=== PATIENT | male | born 1935 | race Caucasian/White ===

== ENCOUNTER → 2017-11-25 15:49 | Outpatient (CLI) | payer MEDICARE, BC, SELFPAY ==
[2017-11-25 17:20] LABS: CREATININE 1.31 mg/dL (0.70-1.30); Estimated GFR 52.65 (mL/min/1.73m2)
== END ==
PROVIDERS: PCP Nurse Practitioner Family; Visit Provider Nurse Practitioner Family
DX: N18.9 Chronic kidney disease, unspecified (principal)
CPT/HCPCS: 36415; 82565

== ENCOUNTER 2017-11-30 09:01 | Outpatient (RCR) | payer MEDICARE, BC, SELFPAY ==
[2017-11-30] MEDS: Normal Saline Flush 10 ML SYR IVP (09:50)
== END 2017-12-23 ==
LOC: INF 09:01
PROVIDERS: PCP Nurse Practitioner Family; Visit Provider Nurse Practitioner Family
DX: M85.80 Other specified disorders of bone density and structure, unspecified site (principal)
CPT/HCPCS: 96365; J3489

== ENCOUNTER 2018-11-29 01:11 | Outpatient (RCR) | payer MEDICARE, BC, SELFPAY ==
[2018-11-29] MEDS: Normal Saline Flush 10 ML SYR IVP (09:06)
== END 2018-12-23 23:59 | disposition home or self-care (01) ==
LOC: INF 01:11
PROVIDERS: PCP Nurse Practitioner Family; Visit Provider Nurse Practitioner Family
DX: M85.80 Other specified disorders of bone density and structure, unspecified site (principal)
CPT/HCPCS: 96365; J3489

== ENCOUNTER 2019-01-07 11:01 | Inpatient (IN) | payer MEDICARE, BC, SELFPAY ==
[2019-01-07] VITALS (73 sets, daily range): BP systolic 91–131; BP diastolic 43–81; PULSE 81–113; RESP 15–38; TEMP 36.5–37; O2SAT 92–100
--- NOTE | 2019-01-07 11:27 | DI.RAD_ITS ---
SYMPTOM/DIAGNOSIS: ALTERED MENTAL STATUS PA AND LATERAL CHEST: Increased interstitial markings are noted bilaterally raising the possibility of edema. There is asymmetric elevation of the left hemidiaphragm with increased left retrocardiac markings which could represent an infiltrate. The possibility of a very small pleural effusion could not be excluded. The heart is enlarged. The patient is status post CABG. Multiple degenerative changes are noted in the T spine. IMPRESSION: Cardiomegaly, question pulmonary edema. I could not exclude a left lower lobe infiltrate. The possibility of a very small pleural effusion is raised.
--- NOTE | 2019-01-07 11:27 | DI.CT_ITS ---
SYMPTOM/DIAGNOSIS: PERIOD OF ALTERED MENTAL STATUS, ? ACUTE CVA NONCONTRAST HEAD CT: The exam was carried out according to the usual protocol. There is no evidence of an intra/extra-axial hemorrhage. Regions of diminished absorption in the frontoparietal white matter bilaterally would be consistent with small vessel disease. The ventricles are intact. There is no fracture. The visualized sinuses appear unremarkable. There is no evidence of a mastoid effusion. The soft tissues are unremarkable. IMPRESSION: No acute intracranial abnormality is demonstrated.
--- NOTE | 2019-01-07 11:30 | W.ED.GENAD ---
Discharge Plan Disposition Patient Disposition: [facility] INPATIENT Condition: Stable Discharge Details Chief Complaint: Dizzy/Sync Clinical Impression: Near syncope, Elevated troponin, Pneumonia, Pleural effusion Admit Date/Time: 01/07/19 15:57 Admit Provider: Ha Farris Attending Provider: Ha Farris Primary Care Provider: Maureen Aragon ED Provider: Jossy Marsh Discharge Data Discharge Date/Time-TO BE ENTERED AT DEPARTURE: 01/07/19 17:15 Medical Decision Making 1110 -- 83-year-old male with a history of coronary artery disease, CABG, DVT, PE on Coumadin who presents with an unresponsive episode after ambulating prior to arrival. Patient has no acute complaints at this time. Heart rate 100s. Blood pressure 95/60 which states is near his baseline. Afebrile and he appears nontoxic. No focal deficits on exam. EKG notes a rate of 106, sinus, left bundle branch block, no acute change from previous EKG. Differential diagnosis includes seizure, dehydration, electrolyte abnormality, arrhythmia, ACS, UTI, pneumonia. Will place an IV, small bolus IV fluids, screening labs, chest x-ray. 1300 -- Labs and imaging reviewed. Normal white blood cell count. INR 2. Troponin 0.12. BNP 3767. Chest x-ray notes a left lower lobe infiltrate with possible left pleural effusion. In setting of hypotension, elevated lactate, will treat with antibiotics. Suspect the elevation in troponin is likely demand due to CHF versus pneumonia. Plan is for repeat troponin to assess if uptrending or downtrending. Patient still denies any acute complaints. 1510 --repeat troponin still elevated, indeterminate, 0.11. now states that patient has had progressive worsening of shortness of breath and decreased appetite over the past month. She would feel more comfortable patient stayed in the hospital overnight. Will admit patient for serial troponins, gentle fluid hydration, IV antibiotics, and physical therapy evaluation. 1530 --discussed with hospitalist -accepts patient for admission. Medical Records Medical records reviewed: Yes I reviewed the patient's medical records. Imaging Data Radiologic Study: Radiologist's impression: XR Chest, 2 Views EXAM DATE/TIME: 01/07/2019 11:29 AM CLINICAL HISTORY: 83 years old, male; Other: Altered mentation; Prior surgery TECHNIQUE: Imaging protocol: XR of the chest Views: 2 views. COMPARISON: No relevant prior studies available. FINDINGS: Lungs: Increased interstitial markings bilaterally extending to the periphery consistent with edema. Asymmetric elevation left hemidiaphragm with increased left retrocardiac markings consistent with infiltrate. Pleural space: Blunted posterior costophrenic angles may represent a small effusion. Heart/Mediastinum: Cardiomegaly. Bones/joints: Sternotomy wires mediastinal clips in place. Multilevel degenerative changes of the thoracic spine with anterior wedging. IMPRESSION: 1. Cardiomegaly. Pulmonary edema. 2. Left lower lobe infiltrate with possible left pleural effusion. Blunted right posterior costophrenic angle. CT Head Without Contrast EXAM DATE/TIME: 01/07/2019 11:29 AM CLINICAL HISTORY: 83 years old, male; Altered mental status/memory loss TECHNIQUE: Imaging protocol: Computed tomography of the head without contrast. COMPARISON: MR HEAD^ROUTINE WO 15/09/2016 13:04 FINDINGS: Brain: Moderate small vessel ischemic white matter changes of aging. No evidence for acute intraparenchymal hemorrhage. No evidence for acute infarct. Ventricles: Mild ventriculomegaly. Bones/joints: Unremarkable. No acute fracture. Sinuses: Visualized sinuses are unremarkable. No fluid levels. Mastoid air cells: Visualized mastoid air cells are well aerated. Soft tissues: Unremarkable. IMPRESSION: No acute intracranial abnormality. Lab Data Lab results reviewed: Yes I reviewed the patient's lab results. Labs: 01/07/19 13:42 Blood Blood Culture - Pending 01/07/19 13:30 Blood Blood Culture - Pending 01/07/19 13:12 Urine - Reflex from Ua Urine Culture - Pending Laboratory Tests Range/Units 01/07/19 01/07/19 01/07/19 11:30 11:30 11:30 WBC (4.4-10.8) k/cumm 8.48 RBC (4.50-6.00) m/cumm 4.11 L Hgb (13.5-17.5) g/dL 12.7 L Hct (40.0-50.0) % 39.4 L MCV (80-95) fL 95.9 H MCH (27.0-33.0) pg 30.9 MCHC (32.0-36.0) g/dL 32.2 RDW (11.8-14.1) % 15.8 H Plt Count (130-400) x1000/uL 172 MPV (8.0-11.0) fL 9.8 Immature Gran % 0.2 Neutrophils % 79.6 Lymphocytes % 10.8 Monocytes % 8.5 Eosinophils % 0.8 Basophils % 0.1 Absolute Neutrophils (1.2-6.7) k/cumm 6.74 H Absolute Lymphocytes (1.2-3.4) k/cumm 0.92 L Absolute Monocytes (0.11-0.7) k/cumm 0.72 H Absolute Eosinophils (0.0-0.7) k/cumm 0.07 Absolute Basophils (0.0-0.2) k/cumm 0.01 PT (9.3-11.0) sec 20.2 H INR (0.9-1.1) 2.0 H APTT (21.0-31.4) sec 29.2 Sodium (136-145) mmol/L 139 Potassium (3.5-5.1) mmol/L 4.8 Chloride (98-107) mmol/L 104 Carbon Dioxide (21.0-32.0) mmol/L 23.5 Anion Gap (3-11) mmol/L 11.5 H BUN (7-18) mg/dL 22 H Creatinine (0.70-1.30) mg/dL 1.49 H Estimated GFR/1.73 m2 (mL/min/1.73m2) 45.27 Glucose (70-100) mg/dL 157 H Lactate (0.6-1.4) mmol/L Calcium (8.5-10.1) mg/dL 8.3 L Magnesium (1.8-2.4) mg/dL 1.9 Total Bilirubin (0.2-1.0) mg/dL 0.7 AST (15-37) U/L 24 ALT (16-63) U/L 27 Alkaline Phosphatase (46-116) U/L 46 Troponin I (0.00-0.06) ng/mL 0.12 H* NT-Pro-B Natriuret Pep ( - 299) pg/mL Total Protein (6.4-8.2) g/dL 7.0 Albumin (3.4-5.0) g/dL 3.1 L Procalcitonin ng/mL Urine Color (Yellow) Urine Clarity (Clear) Urine pH (5-8) Ur Specific [place] (1.005-1.025) Urine Protein (Negative) mg/dL Urine Ketones (Negative) mg/dL Urine Blood (Negative) Urine Nitrite (Negative) Urine Bilirubin (Negative) Urine Urobilinogen (Up TO 0.2) EU/dL Ur Leukocyte Esterase (Negative) Urine RBC (0-2) Urine WBC (0-5) HPF Ur Epithelial Cells (Negative) HPF Urine Crystals (Negative) HPF Urine Bacteria (Negative) HPF Urine Casts (Negative) LPF Urine Mucus (Negative) Ur Culture Indicated? Urine Glucose (Negative) mg/dL Range/Units 01/07/19 01/07/19 01/07/19 11:30 13:12 13:30 WBC (4.4-10.8) k/cumm RBC (4.50-6.00) m/cumm Hgb (13.5-17.5) g/dL Hct (40.0-50.0) % MCV (80-95) fL MCH (27.0-33.0) pg MCHC (32.0-36.0) g/dL RDW (11.8-14.1) % Plt Count (130-400) x1000/uL MPV (8.0-11.0) fL Immature Gran % Neutrophils % Lymphocytes % Monocytes % Eosinophils % Basophils % Absolute Neutrophils (1.2-6.7) k/cumm Absolute Lymphocytes (1.2-3.4) k/cumm Absolute Monocytes (0.11-0.7) k/cumm Absolute Eosinophils (0.0-0.7) k/cumm Absolute Basophils (0.0-0.2) k/cumm PT (9.3-11.0) sec INR (0.9-1.1) APTT (21.0-31.4) sec Sodium (136-145) mmol/L Potassium (3.5-5.1) mmol/L Chloride (98-107) mmol/L Carbon Dioxide (21.0-32.0) mmol/L Anion Gap (3-11) mmol/L BUN (7-18) mg/dL Creatinine (0.70-1.30) mg/dL Estimated GFR/1.73 m2 (mL/min/1.73m2) Glucose (70-100) mg/dL Lactate (0.6-1.4) mmol/L 2.0 H Calcium (8.5-10.1) mg/dL Magnesium (1.8-2.4) mg/dL Total Bilirubin (0.2-1.0) mg/dL AST (15-37) U/L ALT (16-63) U/L Alkaline Phosphatase (46-116) U/L Troponin I (0.00-0.06) ng/mL NT-Pro-B Natriuret Pep ( - 299) pg/mL 3767 H Total Protein (6.4-8.2) g/dL Albumin (3.4-5.0) g/dL Procalcitonin ng/mL Urine Color (Yellow) Yellow Urine Clarity (Clear) Clear Urine pH (5-8) 6.5 Ur Specific [place] (1.005-1.025) 1.020 Urine Protein (Negative) mg/dL 30 H Urine Ketones (Negative) mg/dL Negative Urine Blood (Negative) Negative Urine Nitrite (Negative) Negative Urine Bilirubin (Negative) Negative Urine Urobilinogen (Up TO 0.2) EU/dL 0.2 Ur Leukocyte Esterase (Negative) Trace H Urine RBC (0-2) Negative Urine WBC (0-5) HPF 5-10 Ur Epithelial Cells (Negative) HPF Negative Urine Crystals (Negative) HPF Negative Urine Bacteria (Negative) HPF Rare Urine Casts (Negative) LPF Negative Urine Mucus (Negative) Negative Ur Culture Indicated? Yes Urine Glucose (Negative) mg/dL 100 Range/Units 01/07/19 01/07/19 14:40 14:40 WBC (4.4-10.8) k/cumm RBC (4.50-6.00) m/cumm Hgb (13.5-17.5) g/dL Hct (40.0-50.0) % MCV (80-95) fL MCH (27.0-33.0) pg MCHC (32.0-36.0) g/dL RDW (11.8-14.1) % Plt Count (130-400) x1000/uL MPV (8.0-11.0) fL Immature Gran % Neutrophils % Lymphocytes % Monocytes % Eosinophils % Basophils % Absolute Neutrophils (1.2-6.7) k/cumm Absolute Lymphocytes (1.2-3.4) k/cumm Absolute Monocytes (0.11-0.7) k/cumm Absolute Eosinophils (0.0-0.7) k/cumm Absolute Basophils (0.0-0.2) k/cumm PT (9.3-11.0) sec INR (0.9-1.1) APTT (21.0-31.4) sec Sodium (136-145) mmol/L Potassium (3.5-5.1) mmol/L Chloride (98-107) mmol/L Carbon Dioxide (21.0-32.0) mmol/L Anion Gap (3-11) mmol/L BUN (7-18) mg/dL Creatinine (0.70-1.30) mg/dL Estimated GFR/1.73 m2 (mL/min/1.73m2) Glucose (70-100) mg/dL Lactate (0.6-1.4) mmol/L Calcium (8.5-10.1) mg/dL Magnesium (1.8-2.4) mg/dL Total Bilirubin (0.2-1.0) mg/dL AST (15-37) U/L ALT (16-63) U/L Alkaline Phosphatase (46-116) U/L Troponin I (0.00-0.06) ng/mL 0.11 H* NT-Pro-B Natriuret Pep ( - 299) pg/mL Total Protein (6.4-8.2) g/dL Albumin (3.4-5.0) g/dL Procalcitonin ng/mL < 0.1 Urine Color (Yellow) Urine Clarity (Clear) Urine pH (5-8) Ur Specific [place] (1.005-1.025) Urine Protein (Negative) mg/dL Urine Ketones (Negative) mg/dL Urine Blood (Negative) Urine Nitrite (Negative) Urine Bilirubin (Negative) Urine Urobilinogen (Up TO 0.2) EU/dL Ur Leukocyte Esterase (Negative) Urine RBC (0-2) Urine WBC (0-5) HPF Ur Epithelial Cells (Negative) HPF Urine Crystals (Negative) HPF Urine Bacteria (Negative) HPF Urine Casts (Negative) LPF Urine Mucus (Negative) Ur Culture Indicated? Urine Glucose (Negative) mg/dL ECG Data Attestation: I personally reviewed and interpreted this ECG (s) as follows: Interpretation: Rate of 106, sinus, left bundle branch block, first-degree AV block, IN 224, QTc 531. No acute change from previous EKG. HPI General Mode of arrival: EMS. Date/Time Provider Initiated Documentation: 01/07/19 11:10. Limitations to Documentation: no limitations. Information obtained by: patient. HPI Narrative: Patient is an 83-year-old male with a history of coronary artery disease and CABG, DVT, PE on Coumadin, COPD chronically on home O2 for the past year who presents with an episode of decreased responsiveness prior to arrival. states that patient ambulated to the car from a store and sat down. When she came to the putaway driver side and looked in him, he appeared dazed and was staring out the window. She states he appeared pale but he was breathing. She states this lasted approximately 5 to 10 minutes and then he became irritable and then more back to his baseline. She states that time he complained of dizziness. Patient does not recall this episode. states patient has had similar episodes in the past but has not been evaluated by a medical provider for this. She does state that he has been evaluated for seizures in the past with [facility] and has had a normal EEG. Patient denies any symptoms at this time. He denies fever, chest pain, shortness of breath, cough, vomiting, diarrhea, abdominal pain, headache, dizziness, recent illness, recent travel, leg pain or swelling or recent hospital admission. states patient was on antibiotics last week for prior to a dental procedure. Patient denies any recent medication changes. Related Data Home Medications Medication Instructions Recorded Confirmed Citracal + D Caplet 1 ea PO DAILY 08/02/12 01/07/19 aspirin 81 mg PO DAILY tab 08/02/12 01/07/19 cholecalciferol (vitamin D3) 1,000 iu PO DAILY 08/02/12 01/07/19 cyanocobalamin (vitamin B-12) 500 mcg PO DAILY 08/02/12 01/07/19 [Vitamin B-12] multivitamin [Daily Vitamin] 1 ea PO DAILY 08/02/12 01/07/19 Oxygen as directed 10/28/17 10/25/18 isosorbide mononitrate 120 mg 120 mg PO DAILY #90 tab-cap 09/25/18 01/07/19 tablet,extended release 24 hr atorvastatin 40 mg tablet 40 mg PO HS #90 tab 10/11/18 01/07/19 metoprolol succinate 25 mg 25 mg PO DAILY #90 tab-cap 10/11/18 01/07/19 tablet,extended release 24 hr oxybutynin chloride 5 mg tablet 5 mg PO BID #180 tab-cap 10/11/18 01/07/19 ramipril 10 mg capsule 10 mg PO DAILY #90 tab-cap 10/11/18 01/07/19 ranolazine [Ranexa] 500 mg PO QAM 01/07/19 01/07/19 ranolazine [Ranexa] 500 mg PO QHS 01/07/19 01/07/19 warfarin See Rx Instructions .ROUTE .COMPLEX 01/07/19 01/07/19 warfarin See Rx Instructions .ROUTE .COMPLEX 01/07/19 01/07/19 Previous Rx's Medication Instructions Recorded isosorbide mononitrate 120 mg 120 mg PO DAILY #90 tab-cap 09/25/18 tablet,extended release 24 hr atorvastatin 40 mg tablet 40 mg PO HS #90 tab 10/11/18 metoprolol succinate 25 mg 25 mg PO DAILY #90 tab-cap 10/11/18 tablet,extended release 24 hr oxybutynin chloride 5 mg tablet 5 mg PO BID #180 tab-cap 10/11/18 ramipril 10 mg capsule 10 mg PO DAILY #90 tab-cap 10/11/18 Allergies Allergy/AdvReac Type Severity Reaction Status Date / Time No Known Allergies Allergy Verified 01/07/19 11:10 General Stated Complaint: Dizzy/Sync KRISSY: 2 Review of Systems Review of Systems ROS Unobtainable: All systems reviewed & are unremarkable except as noted in HPI and below Constitutional Constitutional: Reports as per HPI, Denies chills and Denies fever(s) Eyes Eyes: Denies blurry vision ENT Ears, Nose, Mouth, and Throat: Denies dizziness, Denies sore throat and Denies throat swelling Cardiovascular Cardiovascular: Denies chest pain and Denies dyspnea Respiratory Respiratory: Denies cough and Denies dyspnea Gastrointestinal Gastrointestinal: Denies abdominal pain, Denies diarrhea and Denies vomiting Genitourinary Genitourinary: Denies hematuria and Denies dysuria Musculoskeletal Musculoskeletal: Denies back pain and Denies numbness Integumentary/Breasts Skin/Breast: Denies lesions and Denies rash Neurologic Neurologic: Denies dizziness, Denies focal weakness and Denies numbness Allergic/Immunologic Allergic/Immunologic: Denies throat swelling [facility] Medical History Angina pectoris (Chronic 08/06/13) Anticoagulant long-term use (Chronic 09/27/12) indication: recurrent DVT/PE ASCVD (arteriosclerotic cardiovascular disease) (Chronic) inf/lat [place], CABGx2 1997; 09/2011 ACS, cath, 3 vessel disease: medical Rx; another stent 2018 Deep venous thrombosis (Inactive 12/01/12) DVT post ERAN; recurent post cath 10/2011 IFG (impaired fasting glucose) (Chronic) Impaired fasting glucose (Chronic 08/20/11) Osteoarthritis of hip (Chronic 12/01/12) markos ERAN; hx sacral fx Osteopenia determined by x-ray (Chronic 11/03/17) left forearm T score -1.9 11/01/17 Other and unspecified hyperlipidemia (Chronic 09/27/12) Other pulmonary embolism and infarction (Inactive 11/17/11) with DVT, post cardiac cath, plan 6-12mo anticoagulation Recurrent DVT/PE; 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 Requesting bone scan. Surgical History Trigger Finger release (Resolved 10/10/15) RIGHT MIDDLE FINGER/DR. COOMBS Social History Smoking/Tobacco Use Status: Former Tobacco Use Alcohol Intake: former Drug use: Never Substance use type: does not use Household members: spouse Communication Needs: None What is your relationship status?: Panel score (0-1 are the most socially isolated patients): 1 Do you feel safe at home: Yes Do you feel safe in your relationship?: Yes Exam Const General: cooperative and healthy appearing Orientation: alert and awake HENMT Head: normal to inspection Ears: hearing grossly normal bilaterally, external ears normal and TM's normal bilaterally General nose exam: external nose normal Face and sinus: normal facial exam Mouth: mucous membranes dry Teeth and gingiva: dentition normal Throat: posterior oropharynx normal Eyes General: appearance normal, both eyes and all related structures Eyelids: eyelids normal Pupils: PERRL EOM: EOM intact bilaterally Neck Neck: normal visual inspection Lymphatic: no lymphadenopathy noted Chest Chest: normal inspection of the chest Resp Effort & Inspection: normal respiratory effort and able to speak in complete sentences Auscultation: crackles on the left at the base Cardio Rate: regular rate Rhythm: regular rhythm GI Inspection: normal to inspection Palpation: soft, not firm, no guarding, no hepatosplenomegaly, no masses and nontender Auscultation: normal bowel sounds Back/Spine/Pelvis Thoracic/Lumbar Spine: thoracic and lumbar spine normal to inspection Skin General skin exam: no rashes or lesions noted Neuro General: alert and awake Cranial Nerves: CN's II-XI intact bilaterally Cognition: normal cognition Speech: speech normal Gait: normal gait Motor: muscle tone normal throughout and strength 5/5 throughout Sensory Exam: no sensory deficits noted Extrem General: normal to inspection, full ROM, normal capillary refill and no edema Psych Appearance: grossly normal Mental Status: mental status grossly normal Speech and Movement: speech and movement normal Affect: normal affect Thought Process: normal Course Vital Signs Vital signs: Vital Signs Temperature 97.7 F 01/07/19 11:04 Pulse 108 H 01/07/19 11:04 Respiratory Rate 01/07/19 11:04 Blood Pressure 95/60 L 01/07/19 11:04 Pulse Oximetry 93 L 01/07/19 11:04 Temperature 97.7 F 01/07/19 11:04 Temperature Source Skin 01/07/19 11:04 Pulse 108 H 01/07/19 11:04 Respiratory Rate 20 01/07/19 11:04 Blood Pressure 95/60 L 01/07/19 11:04 Blood Pressure Position Sitting 01/07/19 11:04 Pulse Oximetry 93 L 01/07/19 11:04 Oxygen Delivery Method Nasal Cannula 01/07/19 11:04 Oxygen Flow Rate 2 01/07/19 11:04 Pain Level 0 01/07/19 11:04
[2019-01-07 11:38] LABS: Abs Immature Grans 0.02 k/cumm (0.0-0.09); Absolute Basophil Count 0.01 k/cumm (0.0-0.2); Absolute Eosinophil Count 0.07 k/cumm (0.0-0.7); Absolute Lymphocyte Count 0.92 k/cumm (1.2-3.4); Absolute Monocyte Count 0.72 k/cumm (0.11-0.7); Absolute Neutrophil Count 6.74 k/cumm (1.2-6.7); Basophils % 0.1; Eosinophils % 0.8; HCT 39.4 % (40.0-50.0); HGB 12.7 g/dL (13.5-17.5); Immature Grans % 0.2; Lymphocytes % 10.8; Mean Corp. HGB Concentration 32.2 g/dL (32.0-36.0); Mean Corpuscular Hemoglobin 30.9 pg (27.0-33.0); Mean Corpuscular Volume 95.9 fL (80-95); Mean Platelet Volume 9.8 fL (8.0-11.0); Monocytes % 8.5; Neutrophils % 79.6; Platelet Count 172 x1000/uL (130-400); RBC 4.11 m/cumm (4.50-6.00); RBC Distribution Width 15.8 % (11.8-14.1); White Blood Cell Count 8.48 k/cumm (4.4-10.8)
[2019-01-07 11:50] LABS: PTT Activated 29.2 sec (21.0-31.4); Prothrombin Time 20.2 sec (9.3-11.0)
[2019-01-07 11:52] LABS: ALT 27 U/L (16-63); AST 24 U/L (15-37); Albumin 3.1 g/dL (3.4-5.0); Alkaline Phosphatase 46 U/L (46-116); Anion Gap 11.5 mmol/L (3-11); BUN 22 mg/dL (7-18); Bilirubin, Total 0.7 mg/dL (0.2-1.0); CO2 23.5 mmol/L (21.0-32.0); CREATININE 1.49 mg/dL (0.70-1.30); Calcium 8.3 mg/dL (8.5-10.1); Chloride 104 mmol/L (98-107); Estimated GFR 45.27 (mL/min/1.73m2); Glucose 157 mg/dL (70-100); Magnesium 1.9 mg/dL (1.8-2.4); Potassium 4.8 mmol/L (3.5-5.1); Sodium 139 mmol/L (136-145)
[2019-01-07] MEDS: Normal Saline 250 ML IV (11:57)
[2019-01-07 12:00] LABS: Troponin I 0.12 ng/mL (0.00-0.06)
[2019-01-07 12:25] LABS: NT-proBNP 3767 pg/mL
--- NOTE | 2019-01-07 12:47 | DI.VRAD_ITS ---
EXAM: CT Head Without Contrast EXAM DATE/TIME: 01/07/2019 11:29 AM CLINICAL HISTORY: 83 years old, male; Altered mental status/memory loss TECHNIQUE: Imaging protocol: Computed tomography of the head without contrast. COMPARISON: MR HEAD^ROUTINE WO 15/09/2016 13:04 FINDINGS: Brain: Moderate small vessel ischemic white matter changes of aging. No evidence for acute intraparenchymal hemorrhage. No evidence for acute infarct. Ventricles: Mild ventriculomegaly. Bones/joints: Unremarkable. No acute fracture. Sinuses: Visualized sinuses are unremarkable. No fluid levels. Mastoid air cells: Visualized mastoid air cells are well aerated. Soft tissues: Unremarkable. IMPRESSION: No acute intracranial abnormality. Dictated and Authenticated by: Ariadna West MD. Ordering:NOLBERTO Fenton MD
--- NOTE | 2019-01-07 12:50 | DI.VRAD_ITS ---
EXAM: XR Chest, 2 Views EXAM DATE/TIME: 01/07/2019 11:29 AM CLINICAL HISTORY: 83 years old, male; Other: Altered mentation; Prior surgery TECHNIQUE: Imaging protocol: XR of the chest Views: 2 views. COMPARISON: No relevant prior studies available. FINDINGS: Lungs: Increased interstitial markings bilaterally extending to the periphery consistent with edema. Asymmetric elevation left hemidiaphragm with increased left retrocardiac markings consistent with infiltrate. Pleural space: Blunted posterior costophrenic angles may represent a small effusion. Heart/Mediastinum: Cardiomegaly. Bones/joints: Sternotomy wires mediastinal clips in place. Multilevel degenerative changes of the thoracic spine with anterior wedging. IMPRESSION: 1. Cardiomegaly. Pulmonary edema. 2. Left lower lobe infiltrate with possible left pleural effusion. Blunted right posterior costophrenic angle. Dictated and Authenticated by: Ariadna West MD. Ordering:NOLBERTO Fenton MD
[2019-01-07 13:17] LABS: Bilirubin Negative (Negative); Blood Negative (Negative); Clarity Clear (Clear); Glucose 100 mg/dL (Negative); Ketones Negative (Negative); Leukocyte Esterase Trace (Negative); Nitrite Negative (Negative); Urobilinogen 0.2 EU/dL (Up TO 0.2); pH 6.5 (5-8)
[2019-01-07 13:25] LABS: Bacteria Rare HPF (Negative); C & S Indicated? Yes; Casts Negative LPF (Negative); Crystals Negative HPF (Negative); Epithelial Cells Negative HPF (Negative); Mucus Negative (Negative); RBC Negative (0-2)
[2019-01-07 15:25] LABS: Troponin I 0.11 ng/mL (0.00-0.06)
--- NOTE | 2019-01-07 16:44 | HPE_ITS ---
Date of service: 01/07/19 Time of Service: 16:45 Assessment and Plan Assessment and plan (1) Neurological abnormality: Start date: 01/07/19 Start time: 17:18 Status: Acute Assessment and plan: Question of TIA vs Siezure. Episode of unresponsiveness while starting into space for approx 5 mins. Second episode in 3 years. Awake study in 2017 by Sarah negative for seizure activity. CT of head normal. MRI ordered. Neurology consulted. Echo ordered. Follow up with am labs. (2) CAP (community acquired pneumonia): Start date: 01/07/19 Start time: 17:20 Status: Acute Assessment and plan: Presents for neurological complaint, however CXR obtained revealed. Cardiomegaly. Pulmonary edema. Left lower lobe infiltrate with possible left pleural effusion. Blunted right posterior costophrenic angle. Started on Doxy and Rocephin. Endorses cough x couple weeks with sputum production in am. Sputum culture ordered. Blood cultures pending. Procalcitonin ordered. lactate in ED 2.0, repeat in am. Albuterol prn. oxygen dependent on 3 L at HS and 2 L during day for severe dyspnea found by PFT. Continue to monitor (3) Deep venous thrombosis: Start date: 01/07/19 Start time: 17:23 Status: Inactive Assessment and plan: Hx of DVT and PE. CAD with CABG. On chronic coumadin. (4) Anticoagulant long-term use: Start date: 01/07/19 Start time: 17:24 Status: Chronic Assessment and plan: Takes coumadin daily. (5) HTN (hypertension): Start date: 01/07/19 Start time: 17:24 Status: Chronic Assessment and plan: BP soft today. Will order home HTN meds with par ameters to hold for soft bp. (6) Hyperlipidemia: Start date: 01/07/19 Start time: 17:25 Status: Acute Assessment and plan: Continue Atorvastatin (7) Oxygen dependent: Start date: 01/07/19 Start time: 17:25 Status: Acute Assessment and plan: See above. (8) Chronic kidney disease: Start date: 01/07/19 Start time: 17:25 Status: Acute Assessment and plan: Creatinine elevated, appears to be chronic in nature. MRI with out contrast ordered and Bun /Creatinine will be monitored. (9) Edema: Start date: 01/07/19 Start time: 17:26 Status: Acute Assessment and plan: RLE is 1-2 + pitting edema. Per this is normal assessment for patient since 5-6 years ago post surgery on hip. Findings discussed with Dr. Farris and he is in agreement with plan. History of Present Illness History of Present Illness Chief Complaint: CAP, Siezure vs TIA Narrative: 83 yo male with PMH of CAD with CABG, PE and DVT on coumadin, CKD, HTN, Hyperlipidemia and oxygen dependent. Presents to emergency department today with what describes a possible seizure vs TIA. Patient was sitting in the car became flushed, pale and started staring straight head with no response to as she was talking to him. This episode lasted approx 5 mins when patient responded with confusion for a couple of mins. An event similar to this occurred three years ago while patient was driving. He was worked up at [facility] 2016. Awake EEG was done and per neurology note no seizure activity took place. He is being admitted to /[facility] for observation. In the emergency department CT obtained with no acute abnormality and CXR revealed Cardiomegaly, Pulmonary edema, LLL infiltrate with possible Left pleural effusion. Mr. Villa has CHF oxygen dependent on 3 L at night and 2 L during the day. Coumadin daily. Question of CHF exacerbation BNP 3757, he does not have crackles he does not have any signs of volume overload though he did receive a bolus in the ED. Repeat BNP in am. Lactate elevated at 2.0, doxy and Rocephin started on patient, blood cultures ordered, sputum culture ordered. Repeat lactate in am. Procalcitonin pending. Mucinex for sputum, and albuterol. I do not see a need for steroids at this time, he is diminished without wheezing or rhonchi. In the event of possible seizure vs TIA neurology consulted. Repeat echo as we do not have a way to review records as this was done in [place]. MRI without contrast for tomorrow. BMP, CBC, INR, Mag for tomorrow. He denies CP, SOB, N/V/D. Review of Systems Review of Systems ROS Unobtainable: All systems reviewed & are unremarkable except as noted in HPI and below Cardiovascular Cardiovascular: Reports as per HPI Respiratory Respiratory: Reports as per HPI [facility] Medical History Angina pectoris (Chronic 08/06/13) Anticoagulant long-term use (Chronic 09/27/12) indication: recurrent DVT/PE ASCVD (arteriosclerotic cardiovascular disease) (Chronic) inf/lat [place], CABGx2 1997; 09/2011 ACS, cath, 3 vessel disease: medical Rx; another stent 2018 Deep venous thrombosis (Inactive 12/01/12) DVT post ERAN; recurent post cath 10/2011 IFG (impaired fasting glucose) (Chronic) Impaired fasting glucose (Chronic 08/20/11) Osteoarthritis of hip (Chronic 12/01/12) markos ERAN; hx sacral fx Osteopenia determined by x-ray (Chronic 11/03/17) left forearm T score -1.9 11/01/17 Other and unspecified hyperlipidemia (Chronic 09/27/12) Other pulmonary embolism and infarction (Inactive 11/17/11) with DVT, post cardiac cath, plan 6-12mo anticoagulation Recurrent DVT/PE; 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 Requesting bone scan. Surgical History S/P CABG (coronary artery bypass graft) (Acute) S/P lumbar spine operation (Acute) laser in [place] in 2012 Status post total hip replacement, right (Acute) with revision in 2012 Trigger Finger release (Resolved 10/10/15) RIGHT MIDDLE FINGER/DR. COOMBS Social History Smoking/Tobacco Use Status: Former Tobacco Use Alcohol Intake: former Drug use: Never Substance use type: does not use Household members: spouse Communication Needs: None What is your relationship status?: Panel score (0-1 are the most socially isolated patients): 1 Do you feel safe at home: Yes Do you feel safe in your relationship?: Yes Meds Home Medications and Allergies Home Medications Medication Instructions Recorded Confirmed Type Citracal + D Caplet 1 ea PO DAILY 08/02/12 01/07/19 History aspirin 81 mg PO DAILY tab 08/02/12 01/07/19 History cholecalciferol (vitamin D3) 1,000 iu PO DAILY 08/02/12 01/07/19 History cyanocobalamin (vitamin B-12) 500 mcg PO DAILY 08/02/12 01/07/19 History [Vitamin B-12] multivitamin [Daily Vitamin] 1 ea PO DAILY 08/02/12 01/07/19 History Walker 1 u MISCELLANEOUS DAILY #1 unit 09/08/16 10/25/18 Clinic Oxygen as directed 10/28/17 10/25/18 History isosorbide mononitrate 120 mg 120 mg PO DAILY #90 tab-cap 09/25/18 01/07/19 Rx tablet,extended release 24 hr atorvastatin 40 mg tablet 40 mg PO HS #90 tab 10/11/18 01/07/19 Rx metoprolol succinate 25 mg 25 mg PO DAILY #90 tab-cap 10/11/18 01/07/19 Rx tablet,extended release 24 hr oxybutynin chloride 5 mg tablet 5 mg PO BID #180 tab-cap 10/11/18 01/07/19 Rx ramipril 10 mg capsule 10 mg PO DAILY #90 tab-cap 10/11/18 01/07/19 Rx ranolazine [Ranexa] 500 mg PO QAM 01/07/19 01/07/19 History ranolazine [Ranexa] 500 mg PO QHS 01/07/19 01/07/19 History warfarin See Rx Instructions .ROUTE .COMPLEX 01/07/19 01/07/19 History warfarin See Rx Instructions .ROUTE .COMPLEX 01/07/19 01/07/19 History Allergies Allergy/AdvReac Type Severity Reaction Status Date / Time No Known Allergies Allergy Verified 01/07/19 11:10 Exam Const General: cooperative, comfortable and no acute distress Orientation: alert, awake and oriented x3 HENMT Head: normal to inspection Face and sinus: normal facial exam Eyes General: appearance normal, both eyes and all related structures Pupils: PERRL Neck Neck: normal visual inspection Lymphatic: no lymphadenopathy noted and no lymphedema noted Chest Chest: normal inspection of the chest Resp Effort & Inspection: able to speak in complete sentences, abnormal respiratory pattern, cough and tachypneic Auscultation: diminished lung sounds Other: oxygen dependent Cardio Jugular venous pressure: no JVD Palpation: normal PMI Rate: regular rate Rhythm: regular rhythm Heart Sounds: S1 normal and S2 normal GI Inspection: normal to inspection Palpation: soft and no hepatosplenomegaly Auscultation: normal bowel sounds Back/Spine/Pelvis Back: no CVA tenderness Skin General skin exam: no rashes or lesions noted Neuro General: alert, awake and oriented x3 Extrem General: normal to inspection Right upper extremity: normal to inspection Left upper extremity: normal to inspection Right lower extremity: edema (1-2 + edema) Psych Appearance: grossly normal Affect: normal affect Attitude: cooperative Results Labs Result diagrams: 01/09/19 06:15 01/09/19 06:15 Labs: Laboratory Results - last 24 hr 01/07/19 01/07/19 01/07/19 11:30 11:30 11:30 WBC 8.48 RBC 4.11 L Hgb 12.7 L Hct 39.4 L MCV 95.9 H MCH 30.9 MCHC 32.2 RDW 15.8 H Plt Count 172 MPV 9.8 Immature Gran % 0.2 Neutrophils % 79.6 Lymphocytes % 10.8 Monocytes % 8.5 Eosinophils % 0.8 Basophils % 0.1 Absolute Neutrophils 6.74 H Absolute Lymphocytes 0.92 L Absolute Monocytes 0.72 H Absolute Eosinophils 0.07 Absolute Basophils 0.01 PT 20.2 H INR 2.0 H APTT 29.2 Sodium 139 Potassium 4.8 Chloride 104 Carbon Dioxide 23.5 Anion Gap 11.5 H BUN 22 H Creatinine 1.49 H Estimated GFR/1.73 m2 45.27 Glucose 157 H Lactate Calcium 8.3 L Magnesium 1.9 Total Bilirubin 0.7 AST 24 ALT 27 Alkaline Phosphatase 46 Troponin I 0.12 H* NT-Pro-B Natriuret Pep Total Protein 7.0 Albumin 3.1 L Urine Color Urine Clarity Urine pH Ur Specific [place] Urine Protein Urine Ketones Urine Blood Urine Nitrite Urine Bilirubin Urine Urobilinogen Ur Leukocyte Esterase Urine RBC Urine WBC Ur Epithelial Cells Urine Crystals Urine Bacteria Urine Casts Urine Mucus Ur Culture Indicated? Urine Glucose 01/07/19 01/07/19 01/07/19 11:30 13:12 13:30 WBC RBC Hgb Hct MCV MCH MCHC RDW Plt Count MPV Immature Gran % Neutrophils % Lymphocytes % Monocytes % Eosinophils % Basophils % Absolute Neutrophils Absolute Lymphocytes Absolute Monocytes Absolute Eosinophils Absolute Basophils PT INR APTT Sodium Potassium Chloride Carbon Dioxide Anion Gap BUN Creatinine Estimated GFR/1.73 m2 Glucose Lactate 2.0 H Calcium Magnesium Total Bilirubin AST ALT Alkaline Phosphatase Troponin I NT-Pro-B Natriuret Pep 3767 H Total Protein Albumin Urine Color Yellow Urine Clarity Clear Urine pH 6.5 Ur Specific [place] 1.020 Urine Protein 30 H Urine Ketones Negative Urine Blood Negative Urine Nitrite Negative Urine Bilirubin Negative Urine Urobilinogen 0.2 Ur Leukocyte Esterase Trace H Urine RBC Negative Urine WBC 5-10 Ur Epithelial Cells Negative Urine Crystals Negative Urine Bacteria Rare Urine Casts Negative Urine Mucus Negative Ur Culture Indicated? Yes Urine Glucose 100 01/07/19 14:40 WBC RBC Hgb Hct MCV MCH MCHC RDW Plt Count MPV Immature Gran % Neutrophils % Lymphocytes % Monocytes % Eosinophils % Basophils % Absolute Neutrophils Absolute Lymphocytes Absolute Monocytes Absolute Eosinophils Absolute Basophils PT INR APTT Sodium Potassium Chloride Carbon Dioxide Anion Gap BUN Creatinine Estimated GFR/1.73 m2 Glucose Lactate Calcium Magnesium Total Bilirubin AST ALT Alkaline Phosphatase Troponin I 0.11 H* NT-Pro-B Natriuret Pep Total Protein Albumin Urine Color Urine Clarity Urine pH Ur Specific [place] Urine Protein Urine Ketones Urine Blood Urine Nitrite Urine Bilirubin Urine Urobilinogen Ur Leukocyte Esterase Urine RBC Urine WBC Ur Epithelial Cells Urine Crystals Urine Bacteria Urine Casts Urine Mucus Ur Culture Indicated? Urine Glucose Last Vital Signs Temp 36.5 C 01/07/19 11:04 Pulse 96 H 01/07/19 14:01 Resp 21 01/07/19 14:10 BP 103/66 01/07/19 14:01 Pulse Ox 96 01/07/19 14:10
[2019-01-07 17:20] LABS: Prothrombin Time 20.6 sec (9.3-11.0)
[2019-01-07 17:38] LABS: Procalcitonin < 0.1 ng/mL
[2019-01-07] MEDS: cefTRIAXone 1 GM/50 ML BAG IVPB (17:59)
--- NOTE | 2019-01-07 18:19 | NUR.NOTE ---
Nursing Note: Pt to [place] floor at 1720 via stretcher from ER. Able to stand and pivot with assistance from stretcher to bed. Pt reports use of walker at home; [facility] walker in room. VSS, 93% on 2L [place]. Telemetry placed. Pt oriented to [place] floor, call schwartz, bed, etc. Call schwartz within reach. RN will continue to monitor.
[2019-01-07] MEDS: DOXYCYCLINE 100 MG in Normal Saline 100 ML IVPB (19:40)
[2019-01-07] MEDS: Oxybutynin 5 MG TAB PO (19:40)
[2019-01-07] MEDS: guaiFENesin 600 MG TABCR PO (19:41)
[2019-01-07] MEDS: Normal Saline Flush 10 ML SYR IVP (19:41)
[2019-01-07] MEDS: Atorvastatin 40 MG TAB PO (21:06)
[2019-01-07 22:00] LABS: Troponin I 0.15 ng/mL (0.00-0.06)
[2019-01-08] VITALS (11 sets, daily range): BP systolic 103–142; BP diastolic 63–82; PULSE 79–86; RESP 18–20; TEMP 36.3–37.4; O2SAT 90–97
[2019-01-08 06:58] LABS: Lactate 1.2 mmol/L (0.6-1.4)
[2019-01-08 07:01] LABS: Abs Immature Grans 0.02 k/cumm (0.0-0.09); Absolute Basophil Count 0.01 k/cumm (0.0-0.2); Absolute Eosinophil Count 0.09 k/cumm (0.0-0.7); Absolute Monocyte Count 0.89 k/cumm (0.11-0.7); Absolute Neutrophil Count 8.05 k/cumm (1.2-6.7); Basophils % 0.1; Eosinophils % 0.9; HCT 40.2 % (40.0-50.0); HGB 13.2 g/dL (13.5-17.5); Immature Grans % 0.2; Mean Corp. HGB Concentration 32.8 g/dL (32.0-36.0); Mean Corpuscular Volume 94.4 fL (80-95); Mean Platelet Volume 9.7 fL (8.0-11.0); Monocytes % 8.9; Neutrophils % 80.9; Platelet Count 170 x1000/uL (130-400); RBC 4.26 m/cumm (4.50-6.00); RBC Distribution Width 15.7 % (11.8-14.1); White Blood Cell Count 9.96 k/cumm (4.4-10.8)
[2019-01-08 07:11] LABS: INR 2.1 (0.9-1.1); Prothrombin Time 20.9 sec (9.3-11.0)
[2019-01-08 07:37] LABS: Anion Gap 9.5 mmol/L (3-11); BUN 21 mg/dL (7-18); CO2 22.5 mmol/L (21.0-32.0); CREATININE 1.44 mg/dL (0.70-1.30); Calcium 8.2 mg/dL (8.5-10.1); Chloride 107 mmol/L (98-107); Estimated GFR 47.08 (mL/min/1.73m2); Glucose 106 mg/dL (70-100); Magnesium 1.8 mg/dL (1.8-2.4); NT-proBNP 6600 pg/mL; Potassium 5.2 mmol/L (3.5-5.1); Sodium 139 mmol/L (136-145)
[2019-01-08] MEDS: Omeprazole 20 MG CAPCR PO (07:38)
[2019-01-08] MEDS: Normal Saline Flush 10 ML SYR IVP ×2 (07:38→16:02)
[2019-01-08 07:41] LABS: Troponin I 0.11 ng/mL (0.00-0.06)
--- NOTE | 2019-01-08 08:04 | NUR.NOTE ---
Pt complained pf 3/10 chest pressure this morning. This is not new per the patient. The doctor and charge nurse are aware. Nursing Note:
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
[2019-01-08] MEDS: Furosemide 40 MG/4 ML VIAL IVP ×2 (08:39→16:02)
[2019-01-08] MEDS: cefTRIAXone 1 GM/50 ML BAG IVPB (08:39)
[2019-01-08] MEDS: Isosorbide Mononitrate 30 MG TABCR 120 MG PO (08:40)
[2019-01-08] MEDS: Cyanocobalamin 500 MCG TAB PO (08:40)
[2019-01-08] MEDS: Aspirin E.C. 81 MG TABEC PO (08:40)
[2019-01-08] MEDS: Metoprolol CR 25 MG TABCR PO (08:40)
[2019-01-08] MEDS: guaiFENesin 600 MG TABCR PO ×2 (08:40→19:39)
[2019-01-08] MEDS: Oxybutynin 5 MG TAB PO ×2 (08:40→19:39)
[2019-01-08] MEDS: Ramipril 5 MG CAP 10 MG PO (08:40)
[2019-01-08] MEDS: Multivitamin TAB 1 TAB PO (08:40)
[2019-01-08] MEDS: Cholecalciferol (Vitamin D3) 1,000 UNIT TAB 1000 UNITS PO (08:41)
[2019-01-08] MEDS: Magnesium Oxide 400 MG TAB PO (08:58)
--- NOTE | 2019-01-08 09:00 | MERGE_ITS ---
*[facility]* *[facility]* [address] [place] [address] Date of study: 01/08/2019 Transthoracic Echocardiography M-mode, complete 2D, complete spectral Doppler, and color Doppler *STUDY CONCLUSIONS* Impressions: Dilated cardiomyopathy, new since the study of 2016. Summary: 1. Left ventricle: The cavity size was mildly to moderately dilated. Wall thickness was normal. Systolic function was moderately to severely reduced. The estimated ejection fraction was 30-35%. Diffuse hypokinesis. 2. Aortic valve: There was trivial regurgitation. 3. Ascending aorta: The ascending aorta was mildly dilated. 4. Mitral valve: There was mild regurgitation. 5. Left atrium: The atrium was moderately dilated. 6. Right ventricle: The cavity size was normal. Wall thickness was normal. Systolic function was normal. 7. Pulmonary arteries: Pulmonary systolic pressure was severely increased, in the range of 65mm Hg to 70mm Hg. *PATIENT PRESENTATION* Height: 182.9cm (72in ) S/D Pressure: 142 / 82 Weight: 80.7kg (177.6lb ) BSA: 2.03m^2 Test start time: 09:10 AM. Test stop time: 10:00 AM. PERFORMING Unknown REFERRING Mark Byers PERFORMING [facility] TRANSPORTATION ASSISTANT RT Romario (Carmen)(CT), [facility] CONSULTING Day Chou ORDERING Day Chou REFERRING Day Chou *PROCEDURE DATA* Procedure information: The patient was identified by two identifiers. This study was interpreted by [facility]. Pertinent images and digital data are archived for permanent storage and are available for subsequent review. Comparison was made to the study of 09/13/2016. Study status: Routine. Transthoracic echocardiography. M-mode, complete 2D, complete spectral Doppler, and color Doppler. A Transthoracic Echocardiogram was performed. Scanning was performed from the parasternal, apical, subcostal, and suprasternal notch acoustic windows. Images were obtained using an [id number] cardiac ultrasound machine. Image quality was adequate. Study completion: The patient tolerated the procedure well. There were no complications. History: PMH: SOB requiring oxygen. *CARDIAC ANATOMY* Left ventricle: The cavity size was mildly to moderately dilated. Wall thickness was normal. Systolic function was moderately to severely reduced. The estimated ejection fraction was 30-35%. Diffuse hypokinesis. Aortic valve: Trileaflet; normal thickness leaflets. Mobility was not restricted. Doppler: Transvalvular velocity was within the normal range. There was no stenosis. There was trivial regurgitation. VTI ratio of LVOT to aortic valve: 0.82. Valve area (VTI): 2.6cm^2. Indexed valve area (VTI): 1.3cm^2/m^2. Peak velocity ratio of LVOT to aortic valve: 0.76. Valve area (Vmax): 2.5cm^2. Indexed valve area (Vmax): 1.2cm^2/m^2. Mean velocity ratio of LVOT to aortic valve: 0.7. Valve area (Vmean): 2.3cm^2. Indexed valve area (Vmean): 1.1cm^2/m^2. Mean gradient (S): 2.7mm Hg. Peak gradient (S): 4.7mm Hg. Aorta: Aortic root: The aortic root was normal in size. Ascending aorta: The ascending aorta was mildly dilated. Mitral valve: Structurally normal valve. Mobility was not restricted. Doppler: Transvalvular velocity was within the normal range. There was no evidence for stenosis. There was mild regurgitation. Peak gradient (D): 5.6mm Hg. Left atrium: The atrium was moderately dilated. Right ventricle: The cavity size was normal. Wall thickness was normal. Systolic function was normal. Pulmonic valve: Structurally normal valve. Doppler: Transvalvular velocity was within the normal range. There was no evidence for stenosis. There was trivial regurgitation. Tricuspid valve: Structurally normal valve. Doppler: Transvalvular velocity was within the normal range. There was no evidence for stenosis. There was no significant regurgitation. Pulmonary artery: Pulmonary systolic pressure was severely increased, in the range of 65mm Hg to 70mm Hg. Right atrium: The atrium was normal in size. Pericardium: There was no pericardial effusion. Systemic veins: Inferior vena cava: Not well visualized. The vessel was normal in size. Measurements Left ventricle Value 09/13/2016 Reference LV ID, ED, PLAX (H) 6.4 cm 5.1 3.5 - 6.0 LV ID, ES, PLAX (H) 5.3 cm 3.6 2.1 - 4.0 LV PW thickness, ED, PLAX 1.0 cm 1.2 LV end-diastolic volume, 147 ml 113 1-p A2C LV ejection fraction, 1-p 25 % 44 A2C LV end-diastolic volume, 129 ml 134 1-p A4C LV ejection fraction, 1-p 21 % 37 A4C LV e', lateral 0.141 m/sec LV E/e', lateral 8 LV e', medial 0.073 m/sec LV E/e', medial 16 LV e', average 0.107 m/sec LV E/e', average 11 Ventricular septum Value 09/13/2016 Reference IVS thickness, ED, PLAX 0.8 cm 1.2 LVOT Value 09/13/2016 Reference LVOT ID, A-P 2.0 cm 2.0 LVOT area 3.2 cm^2 3.3 LVOT peak velocity, S 0.83 m/sec 1.03 LVOT mean velocity, S 0.55 m/sec LVOT VTI, S 16.3 cm 22.5 LVOT peak gradient, S 2.7 mm Hg LVOT mean gradient, S 1.4 mm Hg 2 Stroke volume (SV), LVOT 53 ml DP Stroke index (SV/bsa), 26 ml/m^2 LVOT DP Aortic valve Value 09/13/2016 Reference Aortic valve peak 1.1 m/sec velocity, S Aortic valve mean 0.8 m/sec velocity, S Aortic valve VTI, S 20.0 cm Aortic mean gradient, S 2.7 mm Hg Aortic peak gradient, S 4.7 mm Hg VTI ratio, LVOT/AV 0.82 Aortic valve area, VTI 2.6 cm^2 2.6 Velocity ratio, peak, 0.76 LVOT/AV Aortic valve area, peak 2.5 cm^2 2.4 velocity Velocity ratio, mean, 0.7 LVOT/AV Aortic valve area, mean 2.3 cm^2 velocity Aortic valve area/bsa, 1.1 cm^2/m^2 mean velocity Aorta Value 09/13/2016 Reference Aortic root ID, ED 3.3 cm 3.3 Ascending aorta ID, A-P, S 3.8 cm 4.0 Left atrium Value 09/13/2016 Reference LA ID, A-P, ES 5.2 cm LA ID/bsa, A-P (H) 2.6 cm/m^2 <=2.2 LA volume/bsa, ES, 1-p A4C 43 ml/m^2 39 LA volume, ES, 2-p 80 ml LA volume/bsa, ES, 2-p 39 ml/m^2 LA/aortic root ratio 1.59 1.7 Mitral valve Value 09/13/2016 Reference Mitral E-wave peak 1.18 m/sec 0.75 velocity Mitral peak gradient, D 5.6 mm Hg 2.3 Tricuspid valve Value 09/13/2016 Reference Tricuspid regurg peak 3.9 m/sec 3.3 velocity Tricuspid peak RV-RA 62.2 mm Hg 43.8 gradient Right atrium Value 09/13/2016 Reference RA area, ES, A4C 13.8 cm^2 15 8.3 - 19.5 Legend: (L) and (H) delon values outside specified reference range. I have personally reviewed the images and have reviewed and edited the reported findings. Electronically signed by Mark Byers 01/08/2019 12:41
--- NOTE | 2019-01-08 10:08 | DI.US_ITS ---
SYMPTOMS/DIAGNOSIS: UNRESPONSIVE WHILE STARING INTO SPACE, ? TIA CAROTID ULTRASOUND: A moderate quantity of plaque is noted in the right common carotid artery and at the take off of the right internal carotid artery. Bilateral antegrade flow is noted in the vertebrals. SUMMARY: No evidence of significant carotid stenosis.
--- NOTE | 2019-01-08 10:59 | PHARADMIT ---
Admission Pharmacy Clinical Review NEAR SYNCOPE episode, ELEVATED TROPONIN, PNEUMONIA, PLEURAL EFFUSIONS Code Status Full Code Current Weight 78.9 kg Renally Cleared and Narrow Therapeutic Index Meds CrCl~44ml/min QTc Value / Action Taken QTC 507 (Ranexa) BP Control, Fever BP 142/82 (was hypotensive on admission) Afebrile Pain 3/10 Electrolytes reviewed K+ 5.2, Mag 1.8 DVT Prophylaxis Warfarin for Hx of DVT and PE Opiate Usage / Scheduled Bowel Regimen Ordered none Plt/SCr for Heparin / Enoxaparin Plt 170 SCr 1.44 INR for Warfarin INR 2.1 H/H stable, WBC/Bands H/H 13.2/40.2 WBC 9.96 Antibiotic appropriateness Rocephin/Doxy IV x24h, just changed to oral Cefpodoxime and oral Doxy Procalcitonin <0.1 Cultures and Sensitivities Sputum, blood pending urine: 10-50k Surgical ABX d/c within 24 hr DM control / Insulin Dosing BG 106 Heart Failure (Check EF%) (MERCEDES's, B-Block, Diuretics) Lasix IV, Imdur, Toprol, NTG, Ramipril, Ranexa IV to PO Switch Lasix Home Meds Reviewed Home Meds Not Ordered ok Comments Troponin 0.12,0.11,0.15,0.11...keep trending (possibly elevated from COPD exacerbation-is oxygen dependent) Probnp up 6600 (Lasix 40mg IVP BID, follow I/O and weight, weight down overnight) Chest xray: LLL infiltrate w/possible pleural effusion follow INR/Warfarin dosing Echo today w/EF 30-35% Carotid study today, MRI brain today Neurology consult
--- NOTE | 2019-01-08 12:29 | W.PM.PROGNOT ---
Documented by User: Day Chou NP 01/08/19 13:28 Date of Service Date of service: 01/08/19 Time of Service: 12:29 Assessment and Plan Assessment and plan (1) Acute exacerbation of CHF (congestive heart failure): Status: Acute Assessment and plan: Consider acute CHF exacerbation. Unlikely pneumonia. BNP 6600 from yesterday. Patient did receive fluids in ED. Started on lasix IV BID. Monitor daily weights, I/O, requires oxygen at all times. States feeling better today. On telemetry with LBBB, continue to monitor oxygenation. LS diminished, no JVD, crackles, or worsening SOB. Troponins elevated at 0.20 he has been as high as 0.15. Will continue to monitor troponin, he also has CKD, in the setting of heart strain with CHF. EKG done rate 85 with LBBB. history of CABG and CAD, with EF 30-35% (2) Neurological abnormality: Start date: 01/08/19 Start time: 13:13 Status: Acute Assessment and plan: Unlikely TIA, no focal deficits during attack and no deficits today. Consider hypoxia and seizure as part of differential. MRI results pending. Carotid U/S no acute abnormality, Telemetry with LBBB. Echo with moderate to severe systolic dysfunction and EF 30-35% (3) CAP (community acquired pneumonia): Start date: 01/08/19 Start time: 13:22 Status: Acute Assessment and plan: Not likely in 83 y.o m with severe cardiac disease. Procalcitonin less than 0.1, CXR not difinitive for CAP. Discontinue antibiotics at this time, afebrile and no leukocytosis. Consider CHF exacerbation more likely. (4) Deep venous thrombosis: Start date: 01/08/19 Start time: 13:23 Status: Inactive Assessment and plan: Hx of DVT and PE. CAD with CABG. On chronic coumadin. (5) Anticoagulant long-term use: Start date: 01/08/19 Start time: 13:24 Status: Chronic Assessment and plan: Takes coumadin daily. (6) HTN (hypertension): Start date: 01/08/19 Start time: 13:24 Status: Chronic Assessment and plan: continue home meds with parameters. (7) Hyperlipidemia: Start date: 01/08/19 Start time: 13:24 Status: Acute Assessment and plan: Continue Atorvastatin (8) Oxygen dependent: Start date: 01/08/19 Start time: 13:25 Status: Acute Assessment and plan: For SHETH, most likely due to CHF. Does not have hx of COPD (9) Chronic kidney disease: Start date: 01/08/19 Start time: 13:28 Status: Acute Assessment and plan: Creatinine elevated, appears to be chronic in nature. MRI with out contrast ordered and Bun /Creatinine will be monitored. (10) Edema: Start date: 01/08/19 Start time: 13:28 Status: Acute Assessment and plan: RLE is 1-2 + pitting edema. Per this is normal assessment for patient since 5-6 years ago post surgery on hip. Findings discussed with Dr. Farris and he is in agreement with plan. Subjective Subjective Patient reports: no new complaints Interval history since last seen: Feeling better. Echo obtained this am Systolic function EF 30-35% of left ventricle and moderately to severely reduced with diffuse hypokinesis. There was trivial regurgitation of Aortic valve. Ascending aorta mildly dilated with mild regurgitation of mitral valve. Pulmonary pressure 65-70. Carotid u/s no evidence of carotid stenosis. MRI pending. Labs this am reveal a troponin of 0.11, troponin 0.11-0.15 repeat pending at this time. Will continue to trend. BNP 6600 with a procalcitonin of less than 0.1. Afebrile without a white count most likely patient is in CHF given CXR states oissubke left pleural effusion. He was given an IV dose 40 mg lasix, with lasix 40 mg BID. Unlikely TIA, as patient has no focal deficits and did not experience any during his episode. He did reveal today that he was SOB and not wearing oxygen after ambulating to his car. Likely hypoxia induced, can not exclude seizure in the differential MRI pending at this time. Exam Const General: cooperative, comfortable and no acute distress Orientation: alert, awake and oriented x3 HENMT Head: normal to inspection Face and sinus: normal facial exam Eyes General: appearance normal, both eyes and all related structures Pupils: PERRL Neck Neck: normal visual inspection Lymphatic: no lymphadenopathy noted and no lymphedema noted Chest Chest: normal inspection of the chest Resp Effort & Inspection: able to speak in complete sentences, abnormal respiratory pattern, cough and tachypneic Auscultation: diminished lung sounds Cardio Jugular venous pressure: no JVD Palpation: normal PMI Rate: regular rate Rhythm: regular rhythm Heart Sounds: S1 normal and S2 normal GI Inspection: normal to inspection Palpation: soft and no hepatosplenomegaly Auscultation: normal bowel sounds Back/Spine/Pelvis Back: no CVA tenderness Skin General skin exam: no rashes or lesions noted Neuro General: alert, awake and oriented x3 Extrem General: normal to inspection Right upper extremity: normal to inspection Left upper extremity: normal to inspection Right lower extremity: edema (1-2 + edema) Psych Appearance: grossly normal Affect: normal affect Attitude: cooperative Objective Objective Clinical Data: Abnormal lab results 01/07/19 01/07/19 01/07/19 Range/Units 13:12 13:30 14:40 RBC (4.50-6.00) m/cumm Hgb (13.5-17.5) g/dL RDW (11.8-14.1) % Absolute Neutrophils (1.2-6.7) k/cumm Absolute Lymphocytes (1.2-3.4) k/cumm Absolute Monocytes (0.11-0.7) k/cumm PT (9.3-11.0) sec INR (0.9-1.1) Potassium (3.5-5.1) mmol/L BUN (7-18) mg/dL Creatinine (0.70-1.30) mg/dL Glucose (70-100) mg/dL Lactate 2.0 H (0.6-1.4) mmol/L Calcium (8.5-10.1) mg/dL Troponin I 0.11 H* (0.00-0.06) ng/mL NT-Pro-B Natriuret Pep ( - 299) pg/mL Urine Protein 30 H (Negative) mg/dL Ur Leukocyte Esterase Trace H (Negative) 01/07/19 01/07/19 01/08/19 Range/Units 16:55 21:35 06:45 RBC (4.50-6.00) m/cumm Hgb (13.5-17.5) g/dL RDW (11.8-14.1) % Absolute Neutrophils (1.2-6.7) k/cumm Absolute Lymphocytes (1.2-3.4) k/cumm Absolute Monocytes (0.11-0.7) k/cumm PT 20.6 H (9.3-11.0) sec INR 2.0 H (0.9-1.1) Potassium 5.2 H (3.5-5.1) mmol/L BUN 21 H (7-18) mg/dL Creatinine 1.44 H (0.70-1.30) mg/dL Glucose 106 H D (70-100) mg/dL Lactate (0.6-1.4) mmol/L Calcium 8.2 L (8.5-10.1) mg/dL Troponin I 0.15 H* 0.11 H* (0.00-0.06) ng/mL NT-Pro-B Natriuret Pep 6600 H ( - 299) pg/mL Urine Protein (Negative) mg/dL Ur Leukocyte Esterase (Negative) 01/08/19 01/08/19 Range/Units 06:45 06:45 RBC 4.26 L (4.50-6.00) m/cumm Hgb 13.2 L (13.5-17.5) g/dL RDW 15.7 H (11.8-14.1) % Absolute Neutrophils 8.05 H (1.2-6.7) k/cumm Absolute Lymphocytes 0.90 L (1.2-3.4) k/cumm Absolute Monocytes 0.89 H (0.11-0.7) k/cumm PT 20.9 H (9.3-11.0) sec INR 2.1 H (0.9-1.1) Potassium (3.5-5.1) mmol/L BUN (7-18) mg/dL Creatinine (0.70-1.30) mg/dL Glucose (70-100) mg/dL Lactate (0.6-1.4) mmol/L Calcium (8.5-10.1) mg/dL Troponin I (0.00-0.06) ng/mL NT-Pro-B Natriuret Pep ( - 299) pg/mL Urine Protein (Negative) mg/dL Ur Leukocyte Esterase (Negative) Vital Signs Temperature 37.0 C 01/08/19 07:00 Temperature Source Skin 01/08/19 07:00 Pulse 86 01/08/19 07:30 Pulse Rhythm Regular 01/08/19 09:53 Pulse 99 H 01/07/19 17:01 Respiratory Rate 18 01/08/19 07:00 Respiratory Effort Non-Labored 01/08/19 09:53 Respiratory Depth Normal 01/08/19 09:53 Respiratory Pattern Normal 01/08/19 09:53 Blood Pressure 142/82 H 01/08/19 07:00 Blood Pressure Mean 84 01/07/19 17:01 Blood Pressure Position Sitting 01/07/19 11:04 Pulse Oximetry 90 L 01/08/19 10:14 Oxygen Delivery Method Nasal Cannula 01/08/19 10:14 Oxygen Flow Rate 3 01/08/19 10:14 Pain Level 3 01/08/19 07:00 Comment 01/08/19 03:25 Intake & Output 01/07/19 01/08/19 01/08/19 23:59 11:59 23:59 Intake Total 670 / 670 620 / 620 Output Total 350 / 350 900 / 900 Balance 320 / 320 -280 / -280 Weight 80.83 kg 78.9 kg Intake: IV 430 / 430 Oral 240 / 240 620 / 620 Output: Urine 350 / 350 900 / 900 Other: Urine Color Yellow Yellow Urine Appearance Clear Clear Urine Odor None Normal Voiding Methods Urinal Urinal Laboratory Results WBC 9.96 k/cumm (4.4-10.8) 01/08/19 06:45 RBC 4.26 m/cumm (4.50-6.00) L 01/08/19 06:45 Hgb 13.2 g/dL (13.5-17.5) L 01/08/19 06:45 Hct 40.2 % (40.0-50.0) 01/08/19 06:45 MCV 94.4 fL (80-95) 01/08/19 06:45 MCH 31.0 pg (27.0-33.0) 01/08/19 06:45 MCHC 32.8 g/dL (32.0-36.0) 01/08/19 06:45 RDW 15.7 % (11.8-14.1) H 01/08/19 06:45 Plt Count 170 x1000/uL (130-400) 01/08/19 06:45 MPV 9.7 fL (8.0-11.0) 01/08/19 06:45 Immature Gran % 0.2 01/08/19 06:45 Neutrophils % 80.9 01/08/19 06:45 Lymphocytes % 9.0 01/08/19 06:45 Monocytes % 8.9 01/08/19 06:45 Eosinophils % 0.9 01/08/19 06:45 Basophils % 0.1 01/08/19 06:45 Absolute Neutrophils 8.05 k/cumm (1.2-6.7) H 01/08/19 06:45 Absolute Lymphocytes 0.90 k/cumm (1.2-3.4) L 01/08/19 06:45 Absolute Monocytes 0.89 k/cumm (0.11-0.7) H 01/08/19 06:45 Absolute Eosinophils 0.09 k/cumm (0.0-0.7) 01/08/19 06:45 Absolute Basophils 0.01 k/cumm (0.0-0.2) 01/08/19 06:45 PT 20.9 sec (9.3-11.0) H 01/08/19 06:45 INR 2.1 (0.9-1.1) H 01/08/19 06:45 APTT 29.2 sec (21.0-31.4) 01/07/19 11:30 Sodium 139 mmol/L (136-145) 01/08/19 06:45 Potassium 5.2 mmol/L (3.5-5.1) H 01/08/19 06:45 Chloride 107 mmol/L (98-107) 01/08/19 06:45 Carbon Dioxide 22.5 mmol/L (21.0-32.0) 01/08/19 06:45 Anion Gap 9.5 mmol/L (3-11) 01/08/19 06:45 BUN 21 mg/dL (7-18) H 01/08/19 06:45 Creatinine 1.44 mg/dL (0.70-1.30) H 01/08/19 06:45 Estimated GFR/1.73 m2 47.08 (mL/min/1.73m2) 01/08/19 06:45 Glucose 106 mg/dL (70-100) H D 01/08/19 06:45 Lactate 1.2 mmol/L (0.6-1.4) 01/08/19 05:35 Calcium 8.2 mg/dL (8.5-10.1) L 01/08/19 06:45 Magnesium 1.8 mg/dL (1.8-2.4) 01/08/19 06:45 Total Bilirubin 0.7 mg/dL (0.2-1.0) 01/07/19 11:30 AST 24 U/L (15-37) 01/07/19 11:30 ALT 27 U/L (16-63) 01/07/19 11:30 Alkaline Phosphatase 46 U/L (46-116) 01/07/19 11:30 Troponin I 0.11 ng/mL (0.00-0.06) H* 01/08/19 06:45 NT-Pro-B Natriuret Pep 6600 pg/mL (-299) H 01/08/19 06:45 Total Protein 7.0 g/dL (6.4-8.2) 01/07/19 11:30 Albumin 3.1 g/dL (3.4-5.0) L 01/07/19 11:30 Procalcitonin < 0.1 ng/mL 01/07/19 14:40 Urine Color Yellow (Yellow) 01/07/19 13:12 Urine Clarity Clear (Clear) 01/07/19 13:12 Urine pH 6.5 (5-8) 01/07/19 13:12 Ur Specific [place] 1.020 (1.005-1.025) 01/07/19 13:12 Urine Protein 30 mg/dL (Negative) H 01/07/19 13:12 Urine Ketones Negative mg/dL (Negative) 01/07/19 13:12 Urine Blood Negative (Negative) 01/07/19 13:12 Urine Nitrite Negative (Negative) 01/07/19 13:12 Urine Bilirubin Negative (Negative) 01/07/19 13:12 Urine Urobilinogen 0.2 EU/dL (Up TO 0.2) 01/07/19 13:12 Ur Leukocyte Esterase Trace (Negative) H 01/07/19 13:12 Urine RBC Negative (0-2) 01/07/19 13:12 Urine WBC 5-10 HPF (0-5) 01/07/19 13:12 Ur Epithelial Cells Negative HPF (Negative) 01/07/19 13:12 Urine Crystals Negative HPF (Negative) 01/07/19 13:12 Urine Bacteria Rare HPF (Negative) 01/07/19 13:12 Urine Casts Negative LPF (Negative) 01/07/19 13:12 Urine Mucus Negative (Negative) 01/07/19 13:12 Ur Culture Indicated? Yes 01/07/19 13:12 Urine Glucose 100 mg/dL (Negative) 01/07/19 13:12 Documented by User: Ha Farris MD 01/09/19 10:55
--- NOTE | 2019-01-08 13:19 | DI.MRI_ITS ---
SYMPTOMS/DIAGNOSIS: LOSS OF CONSCIOUSNESS, NEAR SYNCOPE, ELEVATED TROPONIN BRAIN MRI: The study was conducted according to the usual protocol. The patient was unable to hold still. Multiple repeats were attempted. The patient was scanned with the body coil as the patient was unable to lie flat due to kyphosis. The examination is compared with the previous exam of 09/15/2016. There are atrophic changes consistent with the patient's age. Note is made of regions of increased signal in the frontoparietal white matter bilaterally consistent with small vessel disease. The ventricles are intact. There is no evidence of a mass. Again noted is a 3 mm area of decreased signal in the right frontoparietal region, which likely represents the residua of an old hemorrhage. The normal flow void is demonstrated in the cerebral vessels. No sinus pathology is apparent. SUMMARY: When compared with the previous study of 09/15/2016, there has been no apparent significant interval change. Again noted are the atrophic changes and evidence of small vessel disease. Again noted is a 3 mm focus of decreased signal at the right frontoparietal region, likely representing an old hemorrhage.
[2019-01-08 14:17] LABS: Potassium 4.8 mmol/L (3.5-5.1)
--- NOTE | 2019-01-08 15:30 | PDOC.CMIN ---
- If Service Date Differs Date of service: 01/08/19 Time of Service: 15:30 Care Management Initial Assess REASON FOR HOSPITALIZATION:: Near Syncope, Elevated Troponin, Pneumonia, Pleural Effusions PAST MEDICAL HISTORY/PAST SURGICAL HISTORY:: Angina pectoris, Anticoagulant long-term use,. indication: recurrent DVT/PE, ASCVD (arteriosclerotic cardiovascular disease) (Chronic) inf/lat [place], CABGx2 1997; 09/2011 ACS, cath, 3 vessel disease: medical Rx; another stent 2018 Deep venous thrombosis. DVT post ERAN; recurent post cath. Impaired fasting glucose (Chronic 08/20/11). Osteoarthritis of hip (Chronic 12/01/12). markos ERAN; hx sacral fx. Osteopenia, hyperlipidemia (Chronic 09/27/12). Other pulmonary embolism and infarction (Inactive 11/17/11). with DVT, post cardiac cath, plan 6-12mo anticoagulation. 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 Spondylolisthesis of lumbar region. Vertebral fracture, osteoporotic. Surgical History. Trigger Finger release (Resolved 10/10/15). RIGHT MIDDLE FINGER/DR. COOMBS PREVIOUS FUNCTIONAL STATUS/SOCIAL/FAMILY SUPPORTS:: Simba lives with his spouse Arias currently in [place], [place] which is their summer home. He and his spouse return to [place] every year for the . Simba was in the service for 3 years however he does not receive care [facility] the [facility]. 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 He uses a 4WW and is on [employer] oxygen for ambulation and activity. Simba does not drive and is transported by his spouse. CURRENT FUNCTIONAL STATUS:: CM met with Simba and his spouse Arias in the room. Simba is engaged in assessment he does often look to his spouse for answers during assessment. Simba states he and his spouse are leaving for [place] on Feb 07. ADVANCE DIRECTIVES:: On file Agent is Arias (spouse) Has patient been provided with information about the portal?: Yes Did the patient sign up for the portal?: No (declined) CODE STATUS:: Full Code INSURANCE COVERAGE / FINANCIAL ISSUES:: Medicare, BCBS CURRENT HOME/COMMUNITY SERVICES/EQUIPMENT:: 4WW, oxygen concentrator, and small concentrator for travel PRIMARY CARE PHYSICIAN:: Maureen Aragon POTENTIAL DISCHARGE NEEDS:: Follow up with primary care post discharge to be scheduled prior to discharge. PATIENT/FAMILY EDUCATION NEEDS:: Discharge education, limitation follow up plan of care ask me three and self management. ANTICIPATED BARRIERS TO DISCHARGE:: None identified TRANSPORTATION:: Via private car with spouse PLAN:: Simba will be discharged home when medically ready per provider. He is currently being treated for CHF with IV diuretics. Simba will resume DME services for home oxygen. Anticipate no additional services needed at time of discharge.
[2019-01-08 15:38] LABS: Troponin I 0.27 ng/mL (0.00-0.06)
[2019-01-08] MEDS: Warfarin 5 MG TAB PO (20:36)
[2019-01-08 20:38] LABS: Troponin I 0.38 ng/mL (0.00-0.06)
[2019-01-08] MEDS: Atorvastatin 40 MG TAB PO (21:36)
[2019-01-09] VITALS (11 sets, daily range): BP systolic 92–120; BP diastolic 54–69; PULSE 66–87; RESP 17–18; TEMP 35.8–36.7; O2SAT 93–100
[2019-01-09 07:06] LABS: Abs Immature Grans 0.03 k/cumm (0.0-0.09); Absolute Basophil Count 0.01 k/cumm (0.0-0.2); Absolute Eosinophil Count 0.13 k/cumm (0.0-0.7); Absolute Lymphocyte Count 1.02 k/cumm (1.2-3.4); Absolute Monocyte Count 0.97 k/cumm (0.11-0.7); Basophils % 0.1; Eosinophils % 1.4; HCT 40.7 % (40.0-50.0); HGB 13.5 g/dL (13.5-17.5); Immature Grans % 0.3; Lymphocytes % 11.3; Mean Corp. HGB Concentration 33.2 g/dL (32.0-36.0); Mean Corpuscular Hemoglobin 31.3 pg (27.0-33.0); Mean Corpuscular Volume 94.2 fL (80-95); Mean Platelet Volume 10.1 fL (8.0-11.0); Monocytes % 10.7; Neutrophils % 76.2; Platelet Count 181 x1000/uL (130-400); RBC 4.32 m/cumm (4.50-6.00); RBC Distribution Width 15.6 % (11.8-14.1); White Blood Cell Count 9.06 k/cumm (4.4-10.8)
[2019-01-09 07:14] LABS: Prothrombin Time 24.7 sec (9.3-11.0)
[2019-01-09 07:17] LABS: INR 2.4 (0.9-1.1)
[2019-01-09 07:22] LABS: Anion Gap 8.3 mmol/L (3-11); BUN 27 mg/dL (7-18); CO2 25.7 mmol/L (21.0-32.0); CREATININE 1.79 mg/dL (0.70-1.30); Calcium 8.2 mg/dL (8.5-10.1); Chloride 104 mmol/L (98-107); Estimated GFR 36.63 (mL/min/1.73m2); Glucose 110 mg/dL (70-100); Magnesium 1.7 mg/dL (1.8-2.4); Potassium 4.4 mmol/L (3.5-5.1); Sodium 138 mmol/L (136-145)
[2019-01-09 07:26] LABS: Troponin I 0.29 ng/mL (0.00-0.06)
[2019-01-09] MEDS: Normal Saline Flush 10 ML SYR IVP (08:34)
[2019-01-09] MEDS: Omeprazole 20 MG CAPCR PO (08:36)
[2019-01-09] MEDS: Cholecalciferol (Vitamin D3) 1,000 UNIT TAB 1000 UNITS PO (08:36)
[2019-01-09] MEDS: Aspirin E.C. 81 MG TABEC PO (08:36)
[2019-01-09] MEDS: guaiFENesin 600 MG TABCR PO ×2 (08:36→19:31)
[2019-01-09] MEDS: Isosorbide Mononitrate 60 MG TABCR 120 MG PO (08:36)
[2019-01-09] MEDS: Metoprolol CR 25 MG TABCR PO (08:36)
[2019-01-09] MEDS: Cyanocobalamin 500 MCG TAB PO (08:36)
[2019-01-09] MEDS: Oxybutynin 5 MG TAB PO ×2 (08:36→19:31)
[2019-01-09] MEDS: Multivitamin TAB 1 TAB PO (08:37)
[2019-01-09] MEDS: Ramipril 5 MG CAP 10 MG PO (08:37)
--- NOTE | 2019-01-09 09:47 | PDOC.CMPRO ---
- If Service Date Differs Date of service: 01/09/19 Time of Service: 09:47 Care Management Progress Note S/O:CM met with patient in the room he is alert and sitting up in the chair. He continues to receive diuretics for CHF and supportive care. Neuro has consulted and recommends continue follow up with primary care providers as outpatient. Simba will be discharged when medically ready. A:Simba is a 83 year old male admitted with reports of AMS, elevated cardiac enzymes and CHF vs pneumonia P: Simba will be discharged home when medically ready per provider. He is currently being treated for CHF with IV diuretics and is now on a Lasix drip. Simba will resume DME services for home oxygen. Spouse Arias to transport him home when medically ready. Anticipate no additional services needed at time of discharge.
[2019-01-09] MEDS: Magnesium Oxide 400 MG TAB 800 MG PO (10:03)
--- NOTE | 2019-01-09 10:56 | PGE_ITS ---
Date of Service Date of service: 01/09/19 Time of Service: 10:56 Assessment and Plan Assessment and plan (1) Altered mental status: Status: Acute Assessment and plan: Negative CT Head, Carotid Ultrasound, and MRI of the Brain - although with evidence of possible area in the right frontoparietal region, likely representing an old hemorrhage - reviewed by neurologist and appa rently unchanged from prior imaging in 2017. Previous EEG in 2017 while awake also negative. Current episode mimicked prior experience 2 years ago. - Per Neurology eval patient's symptoms were likely related to underlying medical condition, and although cannot completely rule out seizure activity, recommended against EEG unless recurrent symptoms. - No abnormal activity on telemetry. ECHO as below. Patient without any further episodes while hospitalized. (2) Acute exacerbation of CHF (congestive heart failure): Status: Acute Assessment and plan: Likely ischemic in etiology, with EF worsening to 30%. Although without significant pulmonary findings, patient appeared to have LE edema that has improved with diuresis. Also question whether chronic O2 use may be due to pulmonary edema in the setting of CHF, as patient does not have a history of COPD and no evidence of ILD by imaging. - Given mildly worsened renal function will change to lasix gtt and plan for an additional day of diuresis. - Continue ASA, statin, MERCEDES-I, long-acting nitrate, and BB. Consider low dose oral diuretic at discharge. - Repeat BNP. (3) Ztmhl-yp-rcschuo kidney injury: Status: Acute Assessment and plan: In setting of acute CHF exacerbation and active diuresis. Monitor, renally dose medications, and avoid nephrotoxins. (4) Pulmonary hypertension: Status: Acute Assessment and plan: Noted, with PAPs in the 70's. (5) CAP (community acquired pneumonia): Status: Acute Assessment and plan: Procalcitonin undetectable, which may be on the basis of either early infection or non-bacterial source. However, Mr. Villa continues to have dyspnea despite diuresis - will reinitiate antibiotic therapy and monitor symptoms. (6) HTN (hypertension): Status: Chronic Assessment and plan: Currently on MERCEDES-I, BB, and Long acting nitrate. 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 Continue ASA, statin, nitrate, and BB. Also on anti-anginal with Ranolazine. - Given drop in EF may benefit from stress once acute illness is over. (8) Elevated troponin: Status: Acute Assessment and plan: Minimal and likely related to demand in the setting of acute CHF exacerbation and poor clearance with JANINA superimposed on CKD. (9) DVT prophylaxis: Status: Acute Assessment and plan: On chronic anticoagulation with Coumadin. Monitor daily INR. (10) Advance directive discussed with patient: Status: Acute Assessment and plan: Full Code. Subjective Subjective Interval history since last seen: 83 year old man with a prior history of CAD and known CHF, admitted from [facility] Emergency Department on 01/08 with a diagnosis altered mental status. Mr. Villa has a past Medical History significant for CAD with prior CABG, CHF with an EF originally believed to be at 45%DVT/PE on chronic anticoagulation with Coumadin, CKD, HTN, and Dyslipidemia. He has been chronically Oxygen dependent at 3L, but without a history of COPD or lung disease - thought potentially due to his history of CHF. The patient presented to the ED with a reported episode of 'staring' and unresponsiveness while in the car, which lasted approximately 5 minutes, and was subsequently followed by a period of confusion. A very similiar event occured approximately 3 years ago, incidentally also while in a car, at which time he was [place] [facility] [place] Details of the full work-up is unknown as no follow-up note was found, but the patient's imaging and EEG results (EEG while awake) were essentially negative. Work-up in the ED was significant for a mild and unchanged anemia, therapeutic INR, elevated but stable creatinine, and a minimal and equivocal elevation in troponin. His BNP was elevated as well. His CXR was interpreted as potential for a LLL PNA. The patient was hydrated in the ED and referred for admission. Following admission Mr. Tello had worsening BNP values and clinical signs of CHF - hydration was discontinued and he was diuresed. As his dyspnea did not improve he was also restarted on antibiotic therapy for a potential pulmonary infection. Further work-up with CT Head, Carotid Artery Ultrasound, and MRI brain were unremarkable (possible old area of hemorrhage in the right frontoparietal region). Neurology eval with potential for underlying medical condition as cause for his altered mental status. The patient's ECHO showed worsening LVEF at 30%, with PHTN and PAP's in the 70's range. This morning he feels slightly improved. No overnight events were reported. He remains afebrile. Exam Narrative Exam Narrative: General: Patient appears comfortable, AAOX3, NAD Neck: Supple CV: Regular, nontachycardic, S1S2, no significant murmurs/gallops Pulmonary: Clear to auscultation bilaterally, no crackles, wheezing, or rhonchi Abdomen: + Bowel Sounds, soft, nontender, nondistended Vascular: +1 b/l lower extremity edema, improved Psych: Normal mood and affect. Objective Objective Clinical Data: Abnormal lab results 01/08/19 01/08/19 01/08/19 Range/Units 12:27 14:59 19:00 RBC (4.50-6.00) m/cumm RDW (11.8-14.1) % Absolute Neutrophils (1.2-6.7) k/cumm Absolute Lymphocytes (1.2-3.4) k/cumm Absolute Monocytes (0.11-0.7) k/cumm PT (9.3-11.0) sec INR (0.9-1.1) BUN (7-18) mg/dL Creatinine (0.70-1.30) mg/dL Glucose (70-100) mg/dL Calcium (8.5-10.1) mg/dL Magnesium (1.8-2.4) mg/dL Troponin I 0.20 H* 0.27 H* 0.38 H* (0.00-0.06) ng/mL 01/09/19 01/09/19 01/09/19 Range/Units 06:15 06:15 06:15 RBC 4.32 L (4.50-6.00) m/cumm RDW 15.6 H (11.8-14.1) % Absolute Neutrophils 6.90 H (1.2-6.7) k/cumm Absolute Lymphocytes 1.02 L (1.2-3.4) k/cumm Absolute Monocytes 0.97 H (0.11-0.7) k/cumm PT 24.7 H (9.3-11.0) sec INR 2.4 H (0.9-1.1) BUN 27 H (7-18) mg/dL Creatinine 1.79 H (0.70-1.30) mg/dL Glucose 110 H (70-100) mg/dL Calcium 8.2 L (8.5-10.1) mg/dL Magnesium 1.7 L (1.8-2.4) mg/dL Troponin I 0.29 H* (0.00-0.06) ng/mL Vital Signs Temperature 35.8 C L 01/09/19 07:56 Temperature Source Tympanic 01/09/19 07:56 Pulse 80 01/09/19 07:56 Pulse Rhythm Regular 01/09/19 09:24 Pulse 99 H 01/07/19 17:01 Respiratory Rate 18 01/09/19 07:56 Respiratory Effort Non-Labored 01/09/19 09:24 Respiratory Depth Normal 01/09/19 09:24 Respiratory Pattern Normal 01/09/19 09:24 Blood Pressure 120/69 01/09/19 07:56 Blood Pressure Mean 84 01/07/19 17:01 Blood Pressure Position Sitting 01/07/19 11:04 Pulse Oximetry 99 01/09/19 07:56 Oxygen Delivery Method Nasal Cannula 01/09/19 07:56 Oxygen Flow Rate 1 01/09/19 07:56 Pain Level 0 01/09/19 03:43 Comment 01/08/19 11:45 Intake & Output 01/08/19 01/08/19 01/09/19 11:59 23:59 11:59 Intake Total 620 / 880 260 / 880 320 / 320 Output Total 900 / 1680 780 / 1680 645 / 645 Balance -280 / -800 -520 / -800 -325 / -325 Weight 68.9 kg 68.3 kg Intake: IV Oral 620 / 870 250 / 870 320 / 320 Output: Urine 900 / 1680 780 / 1680 645 / 645 Other: Urine Color Yellow Pale Yellow Yellow Urine Appearance Clear Clear Clear Urine Odor Normal None None Voiding Methods Urinal Urinal Urinal Laboratory Results WBC 9.06 k/cumm (4.4-10.8) 01/09/19 06:15 RBC 4.32 m/cumm (4.50-6.00) L 01/09/19 06:15 Hgb 13.5 g/dL (13.5-17.5) 01/09/19 06:15 Hct 40.7 % (40.0-50.0) 01/09/19 06:15 MCV 94.2 fL (80-95) 01/09/19 06:15 MCH 31.3 pg (27.0-33.0) 01/09/19 06:15 MCHC 33.2 g/dL (32.0-36.0) 01/09/19 06:15 RDW 15.6 % (11.8-14.1) H 01/09/19 06:15 Plt Count 181 x1000/uL (130-400) 01/09/19 06:15 MPV 10.1 fL (8.0-11.0) 01/09/19 06:15 Immature Gran % 0.3 01/09/19 06:15 Neutrophils % 76.2 01/09/19 06:15 Lymphocytes % 11.3 01/09/19 06:15 Monocytes % 10.7 01/09/19 06:15 Eosinophils % 1.4 01/09/19 06:15 Basophils % 0.1 01/09/19 06:15 Absolute Neutrophils 6.90 k/cumm (1.2-6.7) H 01/09/19 06:15 Absolute Lymphocytes 1.02 k/cumm (1.2-3.4) L 01/09/19 06:15 Absolute Monocytes 0.97 k/cumm (0.11-0.7) H 01/09/19 06:15 Absolute Eosinophils 0.13 k/cumm (0.0-0.7) 01/09/19 06:15 Absolute Basophils 0.01 k/cumm (0.0-0.2) 01/09/19 06:15 PT 24.7 sec (9.3-11.0) H 01/09/19 06:15 INR 2.4 (0.9-1.1) H 01/09/19 06:15 APTT 29.2 sec (21.0-31.4) 01/07/19 11:30 Sodium 138 mmol/L (136-145) 01/09/19 06:15 Potassium 4.4 mmol/L (3.5-5.1) 01/09/19 06:15 Chloride 104 mmol/L (98-107) 01/09/19 06:15 Carbon Dioxide 25.7 mmol/L (21.0-32.0) 01/09/19 06:15 Anion Gap 8.3 mmol/L (3-11) 01/09/19 06:15 BUN 27 mg/dL (7-18) H 01/09/19 06:15 Creatinine 1.79 mg/dL (0.70-1.30) H 01/09/19 06:15 Estimated GFR/1.73 m2 36.63 (mL/min/1.73m2) 01/09/19 06:15 Glucose 110 mg/dL (70-100) H 01/09/19 06:15 Lactate 1.2 mmol/L (0.6-1.4) 01/08/19 05:35 Calcium 8.2 mg/dL (8.5-10.1) L 01/09/19 06:15 Magnesium 1.7 mg/dL (1.8-2.4) L 01/09/19 06:15 Total Bilirubin 0.7 mg/dL (0.2-1.0) 01/07/19 11:30 AST 24 U/L (15-37) 01/07/19 11:30 ALT 27 U/L (16-63) 01/07/19 11:30 Alkaline Phosphatase 46 U/L (46-116) 01/07/19 11:30 Troponin I 0.29 ng/mL (0.00-0.06) H* 01/09/19 06:15 NT-Pro-B Natriuret Pep 6600 pg/mL (-299) H 01/08/19 06:45 Total Protein 7.0 g/dL (6.4-8.2) 01/07/19 11:30 Albumin 3.1 g/dL (3.4-5.0) L 01/07/19 11:30 Procalcitonin < 0.1 ng/mL 01/07/19 14:40 Urine Color Yellow (Yellow) 01/07/19 13:12 Urine Clarity Clear (Clear) 01/07/19 13:12 Urine pH 6.5 (5-8) 01/07/19 13:12 Ur Specific [place] 1.020 (1.005-1.025) 01/07/19 13:12 Urine Protein 30 mg/dL (Negative) H 01/07/19 13:12 Urine Ketones Negative mg/dL (Negative) 01/07/19 13:12 Urine Blood Negative (Negative) 01/07/19 13:12 Urine Nitrite Negative (Negative) 01/07/19 13:12 Urine Bilirubin Negative (Negative) 01/07/19 13:12 Urine Urobilinogen 0.2 EU/dL (Up TO 0.2) 01/07/19 13:12 Ur Leukocyte Esterase Trace (Negative) H 01/07/19 13:12 Urine RBC Negative (0-2) 01/07/19 13:12 Urine WBC 5-10 HPF (0-5) 01/07/19 13:12 Ur Epithelial Cells Negative HPF (Negative) 01/07/19 13:12 Urine Crystals Negative HPF (Negative) 01/07/19 13:12 Urine Bacteria Rare HPF (Negative) 01/07/19 13:12 Urine Casts Negative LPF (Negative) 01/07/19 13:12 Urine Mucus Negative (Negative) 01/07/19 13:12 Ur Culture Indicated? Yes 01/07/19 13:12 Urine Glucose 100 mg/dL (Negative) 01/07/19 13:12
--- NOTE | 2019-01-09 12:37 | IN_ITS ---
Date of service: 01/08/19 Time of Service: 11:31 PT Notes Inpatient Physical Therapy Evaluation Date: 01/08/2019 Referring Doctor: Day Chou NP PT Orders: PT CONSULT: Eval/Treat Precautions: Fall. Standard. Activity as tolerated. Patient Profile/Admitting Diagnosis: Patient is an 83 year old male admitted with past medical history significant for ASCVD S/P CABG and is on chroninc oxygen supplementation who presented to the ED on 01/07/2019 with chief presentation of dizziness, syncope/unresponsive episode. Patient was diagnosed with neurologic abnormality with suspicion for TIA vs. seizure, CAP, hyperlipidemia, and chroninc kidney disease. 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) inf[place]lat [place], CABGx2 1997; 09/2011 ACS, cath, 3 vessel disease: medical Rx; another stent 2018 Deep venous thrombosis (Inactive 12/01/12) DVT post ERAN; recurent post cath 10/2011 IFG (impaired fasting glucose) (Chronic) Impaired fasting glucose (Chronic 08/20/11) Osteoarthritis of hip (Chronic 12/01/12) markos ERAN; hx sacral fx Osteopenia determined by x-ray (Chronic 11/03/17) left forearm T score -1.9 11/01/17 Other and unspecified hyperlipidemia (Chronic 09/27/12) Other pulmonary embolism and infarction (Inactive 11/17/11) with DVT, post cardiac cath, plan 6-12mo anticoagulation Recurrent DVT/PE; 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 Requesting bone scan. Surgical History S/P CABG (coronary artery bypass graft) (Acute) S/P lumbar spine operation (Acute) laser in [place] in 2012 Status post total hip replacement, right (Acute) with revision in 2012 Trigger Finger release (Resolved 10/10/15) RIGHT MIDDLE FINGER/DR. COOMBS Social History/Home Situation: Simba currently lives at home with his . He requires 2L/min of O2 during the day and 3L/min at night. They live in a mobile trailer part of the year on [place] with a ramp to enter, and live in [place] during the winter months. Current Functional Limitations: Patient?s spouse reported at least more than 12 falls in the last twelve months. Equipment Owned/DME: [place] Subjective: Patient does not report any pain, and is agreeable to PT treatment. He complains of dyspnea during ambulation. Patient is reported to have fallen six times within the last twelve months due to ?legs quivering?. Objective: General Observation: Patient is seen seated in recliner with IV in R UE, on continuous 2 L of oxygen via nasal cannula, and abbasi catheter. Mental Status: Alert x oriented as to person, place, time, and purpose Pain: Patient did not report pain. ROM: Right Lower Extremity: Hip flexion markedly decreased. Hip abduction WFL. Knee flexion WFL. Ankle dorsiflexion WFL. Ankle plantarflexion WFL. Left Lower Extremity: Hip flexion markedly decreased. Hip abduction WFL. Knee flexion WFL. Ankle dorsiflexion WFL. Ankle plantarflexion WFL. Strength: Right Lower Extremity: Hip flexors 3-/5. Hip abductors 5/5. Knee flexors 4/5. Knee extensors 4/5. Ankle dorsiflexors 5/5. Ankle plantarflexors 5/5. Left Lower Extremity:Hip flexors 3-/5. Hip abductors 5/5. Knee flexors 4/5. Knee extensors 4/5. Ankle dorsiflexors 5/5. Ankle plantarflexors 5/5. Bed Mobility/Transfers: Rolling Not tested Supine to sit Not tested Sit to supine Minimal assist Sit to stand Minimal assist Stand to sit Minimal assist Bed to chair Minimal assist Chair to bed Minimal assist Gait: Patient exhibited a step- to gait pattern with a FWW and wheelchair follow for 70?, at which time he required a break due to shortness of breath and rapid fluctuations in heart rate from 38 to 109 bpm. Balance: Static Sitting: Good Dynamic Sitting: Good Static Standing: Fair Dynamic Standing: Fair Special Tests: Mobility Limitations [facility] Basic Mobility Inpatient Short Form: Raw Score: 17 CMS Score: 50% deficit Informed Consent/Education: Patient instructed in purpose of PT consult and plan of care. Assessment: Patient is an 83 year old male admitted with an episode of CKD, CAP, Edema, and O2 dependency. He is accompanied by his who states that they live in a trailer with a ramp on [facility], and plan to return to [place] on February 07. He is severely deconditioned but seems motivated to get better. His prognosis is fair. Patient presents with clinical signs and symptoms consistent with current/admitting diagnoses that have resulted to mobility limitations, gait instability, generalized weakness, and impairment of motor control as demonstrated by the following impairment level findings: 1. Decreased strength to B LE major muscle groups 2. Impaired sitting/standing balance 3. Impaired activity tolerance 4. Limitation of joint range of motion in hip flexion. Impairments are contributing to the following functional limitations: 1. Dependent bed mobility skills 2. Increased dependence with transfers 3. Inability to safely ambulate without assistive device and physical assistance 4. Increase completion time for mobility ADL performance 5. Increased fall risk 6. Inability to negotiate steps alone safely Patient is assessed as a [id number] Moderate complexity based on the following: History: Premorbid independent ambulation level using 4WW, on chroninc oxygen supplementation Examination: Demonstrable impairment in strength, balance, and range of motion with underlying impairments and functional limitations as documented above Presentation: Evolving Decision Making: Moderate complexity Goals: Goals X1 week 1. Supine-Sit independent 2. Sit-Supine independent 3. Sit-Stand independent 4. Stand-Sit independent 5. Bed-Chair independent 6. Chair-Bed independent 7. Independent gait on level surface with use of least restrictive device for at least 300 feet without report of pain nor dyspnea 8. Independent stair negotiation while holding onto bilateral rails for at least 10 steps without report of pain nor dyspnea 9. Independent with home exercise program 10. Good static and dynamic standing balance/tolerance Plan of Care/Treatment Plan: 1-2x/day, 7 days/week x 1 week. Plan of care has been reviewed with the HEALTH INSPECTOR providing the service under Physical Therapy direction. Initiate Physical Therapy intervention for strengthening, bed mobility, transfers, gait, stairs, balance training, use of assistive device. DISCHARGE RECOMMENDATIONS: Patient is recommended to be discharged to home under the care of his after the above goals are met. TREATMENT CODE/TIME: 48790 x 29 minutes Thank you very much for this referral. Cachorro Duckworth [facility] With the supervision of: Ale Moralez PT, DPT, CLT [facility]
--- NOTE | 2019-01-09 14:43 | CHAPLAIN ---
Simba was up in his chair when I visited. His Arias was with him. Simba talked about growing up in [place], [place], near [place]. He also lives in [place] in the winter time. Arias seemed to be very supportive.
--- NOTE | 2019-01-09 15:03 | PT.INTREAT ---
Date of service: 01/09/19 Time of Service: 15:03 PT Notes Inpatient Physical Therapy Treatment Note [facility] Date: 01/09/2019 PRECAUTIONS: Fall, activity as tolerated SUBJECTIVE: Simba is agreeable to participating in PT. Simba reports that he uses 4WW at baseline due to the fact that an FWW will not fit through the hallways in his trailer. OBJECTIVE: PAIN: No complaints of pain BED MOBILITY/TRANSFERS Sit-stand: CGA Stand-sit: CGA GAIT Assistive Device: FWW in a.m.; 4WW in p.m. Weight bearing: Full Assist: CGA in a.m.; SBA in p.m. Distance: 80' + 60 + 20' in a.m.; 20' x6 in p.m. Deviation: SOB and increased fatigue in a.m. THEREX: Patient completed a a resisted upper extremity strengthening program using hand-held weights and red Thera-Band, in a seated position, as per flow sheet. ASSESSMENT: Patient tolerated session with complaints of increased SOB and fatigue with gait training in a.m. with FWW support. Patient did well using 4 WW in p.m., although requires constant cueing throughout gait training for 4 WW mechanics with using locks and breaks for safety. Patient would benefit from continued gait and transfer training as well as strengthening for improved functional activity tolerance. PLAN: Continue with PTs POC TREATMENT CODE/TIME: Session 1: 30 minutes; 70772, [id number] Session 2: 30 minutes; [id number], [id number]
[2019-01-09] MEDS: levoFLOXacin 500 MG, levoFLOXacin 250 MG 750 MG PO (18:22)
[2019-01-09] MEDS: Warfarin 5 MG TAB PO (19:30)
[2019-01-09] MEDS: Atorvastatin 40 MG TAB PO (21:49)
[2019-01-10] VITALS (13 sets, daily range): BP systolic 72–123; BP diastolic 43–73; PULSE 57–90; RESP 14–20; TEMP 35.8–36.8; O2SAT 96–100
--- NOTE | 2019-01-10 00:50 | NUR.NOTE ---
23:40 pt bp 92/54.Charge nurse aware and told nursing to decrease lasix drip to 2.5mg/hr, that was done at 12:16am. 12:49 bp 90/60. CC aware. Nursing will recheck bp. Nursing Note:
[2019-01-10 07:29] LABS: Abs Immature Grans 0.02 k/cumm (0.0-0.09); Absolute Basophil Count 0.01 k/cumm (0.0-0.2); Absolute Eosinophil Count 0.14 k/cumm (0.0-0.7); Absolute Lymphocyte Count 0.98 k/cumm (1.2-3.4); Absolute Monocyte Count 0.96 k/cumm (0.11-0.7); Absolute Neutrophil Count 5.25 k/cumm (1.2-6.7); Basophils % 0.1; Eosinophils % 1.9; HCT 37.8 % (40.0-50.0); HGB 12.3 g/dL (13.5-17.5); Immature Grans % 0.3; Lymphocytes % 13.3; Mean Corp. HGB Concentration 32.5 g/dL (32.0-36.0); Mean Corpuscular Hemoglobin 30.8 pg (27.0-33.0); Mean Corpuscular Volume 94.7 fL (80-95); Neutrophils % 71.4; Platelet Count 158 x1000/uL (130-400); RBC 3.99 m/cumm (4.50-6.00); RBC Distribution Width 15.5 % (11.8-14.1); White Blood Cell Count 7.36 k/cumm (4.4-10.8)
[2019-01-10 07:30] LABS: INR 3.6 (0.9-1.1); Prothrombin Time 36.6 sec (9.3-11.0)
[2019-01-10 07:37] LABS: Anion Gap 8.4 mmol/L (3-11); BUN 30 mg/dL (7-18); CO2 27.6 mmol/L (21.0-32.0); CREATININE 1.83 mg/dL (0.70-1.30); Calcium 8.1 mg/dL (8.5-10.1); Chloride 104 mmol/L (98-107); Estimated GFR 35.71 (mL/min/1.73m2); Glucose 94 mg/dL (70-100); Magnesium 1.9 mg/dL (1.8-2.4); NT-proBNP 3580 pg/mL; Potassium 4.4 mmol/L (3.5-5.1); Sodium 140 mmol/L (136-145)
--- NOTE | 2019-01-10 08:41 | PDOC.CMPRO ---
- If Service Date Differs Date of service: 01/10/19 Time of Service: 08:41 Care Management Progress Note S/O: CM met with patient and his spouse at the bedside today. Simba in in bed he states he had an episode of low blood pressure early this afternoon when he was out of bed. He reports he is better now that he is in bed. His lasix drip has been stopped and he continues to be treated for pneumonia. Simba is not interested in SNF facility he states that he just completed PT as outpatient and feels that he is at his baseline. A:Simba is a 83 year old male admitted with reports of AMS, elevated cardiac enzymes and CHF vs pneumonia P: Simba will be discharged home when medically ready per provider. Simba will resume DME services for home oxygen. Spouse Arias to transport him home when medically ready. Anticipate no additional services needed at time of discharge.
[2019-01-10] MEDS: Omeprazole 20 MG CAPCR PO (09:10)
[2019-01-10] MEDS: Cyanocobalamin 500 MCG TAB PO (09:10)
[2019-01-10] MEDS: guaiFENesin 600 MG TABCR PO ×2 (09:10→19:25)
[2019-01-10] MEDS: Ramipril 5 MG CAP 10 MG PO (09:10)
[2019-01-10] MEDS: Metoprolol CR 25 MG TABCR PO (09:11)
[2019-01-10] MEDS: Isosorbide Mononitrate 60 MG TABCR 120 MG PO (09:11)
[2019-01-10] MEDS: Multivitamin TAB 1 TAB PO (09:11)
[2019-01-10] MEDS: Cholecalciferol (Vitamin D3) 1,000 UNIT TAB 1000 UNITS PO (09:11)
[2019-01-10] MEDS: Oxybutynin 5 MG TAB PO ×2 (09:11→19:26)
[2019-01-10] MEDS: Aspirin E.C. 81 MG TABEC PO (09:17)
[2019-01-10 11:07] LABS: Troponin I 0.17 ng/mL (0.00-0.06)
--- NOTE | 2019-01-10 12:52 | PT.INNT ---
Date of service: 01/10/19 Time of Service: 12:52 PT Notes 01/10/19 Patient on hold at this time, per nursing, due to low blood pressures. Will attempt to resume PT services, if appropriate, this afternoon.
--- NOTE | 2019-01-10 15:06 | PT.INNT ---
Date of service: 01/10/19 Time of Service: 15:06 PT Notes 01/10/19 Patient on hold at this time, per nursing, due to continued low blood pressures. Will attempt to resume PT services, if appropriate, tomorrow morning.
--- NOTE | 2019-01-10 17:43 | W.PM.PROGNOT ---
Date of Service Date of service: 01/10/19 Time of Service: 17:43 Assessment and Plan Assessment and plan (1) Altered mental status: Status: Acute Assessment and plan: Negative CT Head, Carotid Ultrasound, and MRI of the Brain - although with evidence of possible area in the right frontoparietal region, likely representing an old hemorrhage - reviewed by neurologist and apparently unchanged from prior imaging in 2017. Previous EEG in 2017 while awake also negative. Current episode mimicked prior experience 2 years ago. - Per Neurology eval patient's symptoms were likely related to underlying medical condition, and although cannot completely rule out seizure activity, recommended against EEG unless recurrent symptoms. - No abnormal activity on telemetry. ECHO as below. Patient without any further episodes while hospitalized. (2) Acute exacerbation of CHF (congestive heart failure): Status: Acute Assessment and plan: Likely ischemic in etiology, with EF worsening to 30%. Although without significant pulmonary findings, patient appeared to have LE edema that has improved with diuresis. Also question whether chronic O2 use may be due to pulmonary edema in the setting of CHF, as patient does not have a history of COPD and no evidence of ILD by imaging. - Appears dry clinically, and now with development of hypotension - diuresis discontinued. - Continue ASA, statin, long-acting nitrate, and BB. Consider low dose oral diuretic at discharge. Holding MERCEDES-I in setting of JANINA. - Repeat BNP in the morning. - Given worsening LVEF will benefit from outpatient stress testing as well. (3) Lmkbh-[id number] kidney injury: Status: Acute Assessment and plan: In setting of acute CHF exacerbation and active diuresis. Monitor, hold MERCEDES-I, renally dose medications, and avoid nephrotoxins. (4) Pulmonary hypertension: Status: Acute Assessment and plan: Noted, with PAPs in the 70's. (5) CAP (community acquired pneumonia): Status: Acute Assessment and plan: Procalcitonin undetectable, which may be on the basis of either early infection or non-bacterial source. However, as Mr. Villa had continued to have dyspnea despite diuresis, and wasl reinitiated on antibiotic therapy. Symptomatically improved this morning. (6) HTN (hypertension): Status: Chronic Assessment and plan: Currently on BB, and Long acting nitrate. Holding MERCEDES-I as above. 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 Continue ASA, statin, nitrate, and BB. Also on anti-anginal with Ranolazine. - Given drop in EF may benefit from stress once acute illness is over. (8) Elevated troponin: Status: Acute Assessment and plan: Minimal and likely related to demand in the setting of acute CHF exacerbation and poor clearance with JANINA superimposed on CKD. Downtrended with treatment of CHF. (9) DVT prophylaxis: Status: Acute Assessment and plan: On chronic anticoagulation with Coumadin. Monitor daily INR - currently supratherapeutic with coumadin placed on hold. (10) Advance directive discussed with patient: Status: Acute Assessment and plan: Full Code. Subjective Subjective Interval history since last seen: 83 year old man with a prior history of CAD and known CHF, admitted from [facility] Emergency Department on 01/08 with a diagnosis of altered mental status. Mr. Villa has a past Medical History significant for CAD with prior CABG, CHF with an EF originally believed to be at 45%. 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 He has been chronically Oxygen dependent at 3L, but without a history of COPD or lung disease - thought potentially due to his history of CHF. The patient presented to the ED with a reported episode of 'staring' and unresponsiveness while in the car, which lasted approximately 5 minutes, and was subsequently followed by a period of confusion. A very similiar event occured approximately 3 years ago, incidentally also while in a car, at which time he was seen at [facility]. Details of the full work-up is unknown as no follow-up note was found, but the patient's imaging and EEG results (EEG while awake) were essentially negative. Work-up in the ED for his current complaint of altered mental status was significant for a mild and unchanged anemia, therapeutic INR, elevated but stable creatinine, minimal elevation in lactate, and a minimal and equivocal elevation in troponin. His BNP was elevated as well. His CXR was interpreted as potential for a LLL PNA. The patient was hydrated in the ED and referred for admission. Following admission Mr. Tello had worsening BNP values and clinical signs of CHF - hydration was discontinued and he was diuresed. As his dyspnea did not improve he was also restarted on antibiotic therapy for a potential pulmonary infection. Further work-up with CT Head, Carotid Artery Ultrasound, and MRI brain were unremarkable (possible old area of hemorrhage in the right frontoparietal region). Neurology eval with potential for underlying medical condition as cause for his altered mental status. The patient's ECHO showed worsening LVEF at 30%, with PHTN and PAP's in the 70's range. This morning he feels improved and is now intermittently off supplemental oxygen at rest. No overnight events were reported. He remains afebrile. Exam Narrative Exam Narrative: General: Patient appears comfortable, AAOX3, NAD Neck: Supple CV: Regular, nontachycardic, S1S2, no significant murmurs/gallops Pulmonary: Clear to auscultation bilaterally, no crackles, wheezing, or rhonchi Abdomen: + Bowel Sounds, soft, nontender, nondistended Vascular: No LE edema, improved from prior 1-2 + Psych: Normal mood and affect. Objective Objective Clinical Data: Abnormal lab results 01/10/19 01/10/19 01/10/19 Range/Units 06:32 06:32 06:32 RBC 3.99 L (4.50-6.00) m/cumm Hgb 12.3 L (13.5-17.5) g/dL Hct 37.8 L (40.0-50.0) % RDW 15.5 H (11.8-14.1) % Absolute Lymphocytes 0.98 L (1.2-3.4) k/cumm Absolute Monocytes 0.96 H (0.11-0.7) k/cumm PT 36.6 H D (9.3-11.0) sec INR 3.6 H D (0.9-1.1) BUN 30 H (7-18) mg/dL Creatinine 1.83 H (0.70-1.30) mg/dL Calcium 8.1 L (8.5-10.1) mg/dL Troponin I 0.17 H* (0.00-0.06) ng/mL NT-Pro-B Natriuret Pep 3580 H ( - 299) pg/mL Vital Signs Temperature 36.8 C 01/10/19 15:00 Temperature Source Tympanic 01/10/19 15:00 Pulse 74 01/10/19 15:00 Pulse Rhythm Irregular 01/10/19 16:25 Pulse 99 H 01/07/19 17:01 Respiratory Rate 16 01/10/19 15:00 Respiratory Effort Non-Labored 01/10/19 16:25 Respiratory Depth Normal 01/10/19 16:25 Respiratory Pattern Normal 01/10/19 16:25 Blood Pressure 81/43 L 01/10/19 15:00 Blood Pressure Mean 84 01/07/19 17:01 Blood Pressure Position Sitting 01/07/19 11:04 Pulse Oximetry 100 01/10/19 15:00 Oxygen Delivery Method Nasal Cannula 01/10/19 15:00 Oxygen Flow Rate 2 01/10/19 15:00 Pain Level 0 01/10/19 15:00 Comment 01/10/19 11:45 Intake & Output 01/09/19 01/10/19 01/10/19 23:59 11:59 23:59 Intake Total 250 / 570 626.375 / 866.375 240 / 866.375 Output Total 975 / 1620 845 / 845 Balance -725 / -1050 -218.625 / 21.375 240 / 21.375 Weight 74.6 kg Intake: IV 116.375 / 116.375 Oral 250 / 570 510 / 750 240 / 750 Output: Urine 975 / 1620 845 / 845 Other: Urine Color Yellow Light Kajal Urine Appearance Clear Clear Clear Urine Odor Normal None Voiding Methods Urinal Urinal Laboratory Results WBC 7.36 k/cumm (4.4-10.8) 01/10/19 06:32 RBC 3.99 m/cumm (4.50-6.00) L 01/10/19 06:32 Hgb 12.3 g/dL (13.5-17.5) L 01/10/19 06:32 Hct 37.8 % (40.0-50.0) L 01/10/19 06:32 MCV 94.7 fL (80-95) 01/10/19 06:32 MCH 30.8 pg (27.0-33.0) 01/10/19 06:32 MCHC 32.5 g/dL (32.0-36.0) 01/10/19 06:32 RDW 15.5 % (11.8-14.1) H 01/10/19 06:32 Plt Count 158 x1000/uL (130-400) 01/10/19 06:32 MPV 10.0 fL (8.0-11.0) 01/10/19 06:32 Immature Gran % 0.3 01/10/19 06:32 Neutrophils % 71.4 01/10/19 06:32 Lymphocytes % 13.3 01/10/19 06:32 Monocytes % 13.0 01/10/19 06:32 Eosinophils % 1.9 01/10/19 06:32 Basophils % 0.1 01/10/19 06:32 Absolute Neutrophils 5.25 k/cumm (1.2-6.7) 01/10/19 06:32 Absolute Lymphocytes 0.98 k/cumm (1.2-3.4) L 01/10/19 06:32 Absolute Monocytes 0.96 k/cumm (0.11-0.7) H 01/10/19 06:32 Absolute Eosinophils 0.14 k/cumm (0.0-0.7) 01/10/19 06:32 Absolute Basophils 0.01 k/cumm (0.0-0.2) 01/10/19 06:32 PT 36.6 sec (9.3-11.0) H D 01/10/19 06:32 INR 3.6 (0.9-1.1) H D 01/10/19 06:32 APTT 29.2 sec (21.0-31.4) 01/07/19 11:30 Sodium 140 mmol/L (136-145) 01/10/19 06:32 Potassium 4.4 mmol/L (3.5-5.1) 01/10/19 06:32 Chloride 104 mmol/L (98-107) 01/10/19 06:32 Carbon Dioxide 27.6 mmol/L (21.0-32.0) 01/10/19 06:32 Anion Gap 8.4 mmol/L (3-11) 01/10/19 06:32 BUN 30 mg/dL (7-18) H 01/10/19 06:32 Creatinine 1.83 mg/dL (0.70-1.30) H 01/10/19 06:32 Estimated GFR/1.73 m2 35.71 (mL/min/1.73m2) 01/10/19 06:32 Glucose 94 mg/dL (70-100) 01/10/19 06:32 Lactate 1.2 mmol/L (0.6-1.4) 01/08/19 05:35 Calcium 8.1 mg/dL (8.5-10.1) L 01/10/19 06:32 Magnesium 1.9 mg/dL (1.8-2.4) 01/10/19 06:32 Total Bilirubin 0.7 mg/dL (0.2-1.0) 01/07/19 11:30 AST 24 U/L (15-37) 01/07/19 11:30 ALT 27 U/L (16-63) 01/07/19 11:30 Alkaline Phosphatase 46 U/L (46-116) 01/07/19 11:30 Troponin I 0.17 ng/mL (0.00-0.06) H* 01/10/19 06:32 NT-Pro-B Natriuret Pep 3580 pg/mL (-299) H 01/10/19 06:32 Total Protein 7.0 g/dL (6.4-8.2) 01/07/19 11:30 Albumin 3.1 g/dL (3.4-5.0) L 01/07/19 11:30 Procalcitonin < 0.1 ng/mL 01/07/19 14:40 Urine Color Yellow (Yellow) 01/07/19 13:12 Urine Clarity Clear (Clear) 01/07/19 13:12 Urine pH 6.5 (5-8) 01/07/19 13:12 Ur Specific Kenneth 1.020 (1.005-1.025) 01/07/19 13:12 Urine Protein 30 mg/dL (Negative) H 01/07/19 13:12 Urine Ketones Negative mg/dL (Negative) 01/07/19 13:12 Urine Blood Negative (Negative) 01/07/19 13:12 Urine Nitrite Negative (Negative) 01/07/19 13:12 Urine Bilirubin Negative (Negative) 01/07/19 13:12 Urine Urobilinogen 0.2 EU/dL (Up TO 0.2) 01/07/19 13:12 Ur Leukocyte Esterase Trace (Negative) H 01/07/19 13:12 Urine RBC Negative (0-2) 01/07/19 13:12 Urine WBC 5-10 HPF (0-5) 01/07/19 13:12 Ur Epithelial Cells Negative HPF (Negative) 01/07/19 13:12 Urine Crystals Negative HPF (Negative) 01/07/19 13:12 Urine Bacteria Rare HPF (Negative) 01/07/19 13:12 Urine Casts Negative LPF (Negative) 01/07/19 13:12 Urine Mucus Negative (Negative) 01/07/19 13:12 Ur Culture Indicated? Yes 01/07/19 13:12 Urine Glucose 100 mg/dL (Negative) 01/07/19 13:12
[2019-01-10] MEDS: Atorvastatin 40 MG TAB PO (22:19)
[2019-01-11] VITALS (8 sets, daily range): BP systolic 96–118; BP diastolic 57–64; PULSE 61–78; RESP 16–19; TEMP 36.4–36.7; O2SAT 93–99
[2019-01-11 06:59] LABS: Abs Immature Grans 0.02 k/cumm (0.0-0.09); Absolute Basophil Count 0.01 k/cumm (0.0-0.2); Absolute Eosinophil Count 0.18 k/cumm (0.0-0.7); Absolute Lymphocyte Count 1.06 k/cumm (1.2-3.4); Absolute Monocyte Count 0.98 k/cumm (0.11-0.7); Absolute Neutrophil Count 5.13 k/cumm (1.2-6.7); Basophils % 0.1; Eosinophils % 2.4; HCT 38.7 % (40.0-50.0); HGB 12.6 g/dL (13.5-17.5); Immature Grans % 0.3; Lymphocytes % 14.4; Mean Corp. HGB Concentration 32.6 g/dL (32.0-36.0); Mean Corpuscular Hemoglobin 30.5 pg (27.0-33.0); Mean Corpuscular Volume 93.7 fL (80-95); Monocytes % 13.3; Neutrophils % 69.5; Platelet Count 178 x1000/uL (130-400); RBC 4.13 m/cumm (4.50-6.00); RBC Distribution Width 15.4 % (11.8-14.1); White Blood Cell Count 7.38 k/cumm (4.4-10.8)
[2019-01-11 07:05] LABS: Prothrombin Time 49.9 sec (9.3-11.0)
[2019-01-11 07:10] LABS: BUN 34 mg/dL (7-18); CREATININE 1.83 mg/dL (0.70-1.30); Calcium 7.9 mg/dL (8.5-10.1); Chloride 105 mmol/L (98-107); Estimated GFR 35.71 (mL/min/1.73m2); Glucose 97 mg/dL (70-100); Potassium 4.2 mmol/L (3.5-5.1); Sodium 140 mmol/L (136-145)
[2019-01-11 07:14] LABS: Magnesium 2.1 mg/dL (1.8-2.4); NT-proBNP 2373 pg/mL
[2019-01-11 07:20] LABS: INR 4.9 (0.9-1.1)
[2019-01-11] MEDS: Omeprazole 20 MG CAPCR PO (09:03)
[2019-01-11] MEDS: guaiFENesin 600 MG TABCR PO ×2 (09:03→20:02)
[2019-01-11] MEDS: Cyanocobalamin 500 MCG TAB PO (09:03)
[2019-01-11] MEDS: Oxybutynin 5 MG TAB PO ×2 (09:03→20:02)
[2019-01-11] MEDS: Metoprolol CR 25 MG TABCR PO (09:03)
[2019-01-11] MEDS: Normal Saline Flush 10 ML SYR IVP (09:03)
[2019-01-11] MEDS: Isosorbide Mononitrate 60 MG TABCR 120 MG PO (09:03)
[2019-01-11] MEDS: Multivitamin TAB 1 TAB PO (09:04)
[2019-01-11] MEDS: Cholecalciferol (Vitamin D3) 1,000 UNIT TAB 1000 UNITS PO (09:04)
[2019-01-11] MEDS: Aspirin E.C. 81 MG TABEC PO (09:04)
--- NOTE | 2019-01-11 12:26 | PT.INTREAT ---
Date of service: 01/11/19 Time of Service: 12:26 PT Notes Inpatient Physical Therapy Treatment Note [facility] Date: 01/11/19 PRECAUTIONS: Fall, Monitor SaO2 with activity SUBJECTIVE: Simba states that he is feeling much better today versus yesterday. He is agreeable to participating in PT. OBJECTIVE: PAIN: No c/o pain BED MOBILITY/TRANSFERS Sit-stand: SBA with verbal cueing for safety Stand-sit: SBA with verbal cueing for safety GAIT Assistive Device: 4WW Weight bearing: Full Assist: SBA Distance: 20' + 50' + 70' in a.m.; 80' x3 + 50' in p.m. Deviation: Verbal cueing for posture and 4WW mechanics for safety in both a.m. and p.m.; seated rest x2 in a.m., seated rest x3 in p.m. VITALS: SaO2: 96% on 2L O2 via NC with gait training THEREX: Patient completed a resisted UE strengthening program, in a seated position, as per flow sheet. ASSESSMENT: Patient tolerated session well, without complaint. He was able to tolerate a progression in her ther ex program, modifications made to repetitions are noted on flow sheet. Patient would benefit from continued gait and transfer training, as well as strengthening for improved mobility. PLAN: Continue with PT's POC TREATMENT CODE/TIME: Session 1: 30 minutes; 83486, [id number] Session 2: 25 minutes; 54450 x2
--- NOTE | 2019-01-11 14:17 | PGE_ITS ---
Date of Service Date of service: 01/11/19 Time of Service: 14:17 Assessment and Plan Assessment and plan (1) Altered mental status: Status: Acute Assessment and plan: Negative CT Head, Carotid Ultrasound, and MRI of the Brain - although with evidence of possible area in the right frontoparietal region, likely representing an old hemorrhage - reviewed by neurologist and appa rently unchanged from prior imaging in 2017. Previous EEG in 2017 while awake also negative. Current episode mimicked prior experience 2 years ago. - Per Neurology eval patient's symptoms were likely related to underlying medical condition, and although cannot completely rule out seizure activity, recommended against EEG unless recurrent symptoms. - No abnormal activity on telemetry. ECHO as below. Patient without any further episodes while hospitalized. (2) Acute exacerbation of CHF (congestive heart failure): Status: Acute Assessment and plan: Likely ischemic in etiology, with EF worsening to 30%. Although without significant pulmonary findings, patient appeared to have LE edema that has improved with diuresis, and now with improvement in BNP and symptoms as well. Also question whether chronic O2 use may be due to pulmonary edema in the setting of CHF, as patient does not have a history of COPD and no evidence of ILD by imaging. - Appears dry clinically, and with development of hypotension - diuresis discontinued and remains on hold. - Continue ASA, statin, long-acting nitrate, and BB. Consider low dose oral diuretic at discharge. - Patient's Enalapril discontinued in setting of JANINA and hypotension - will resume MERCEDES-I with minimal dose Lisinopril and monitor both blood pressure and creatinine. - Given worsening LVEF will benefit from outpatient stress testing as well. (3) [id number] kidney injury: Status: Acute Assessment and plan: In setting of acute CHF exacerbation and active diuresis. Monitor, renally dose medications, and avoid nephrotoxins. Creatinine stable and may become patient's new baseline given need for diuretic and MERCEDES-I use. Monitor as MERCEDES-I being reinitiated. (4) Pulmonary hypertension: Status: Acute Assessment and plan: Noted, with PAPs in the 70's. (5) CAP (community acquired pneumonia): Status: Acute Assessment and plan: Procalcitonin undetectable, which may be on the basis of either early infection or non-bacterial source. However, as Mr. Villa had continued to have dyspnea despite diuresis, and was reinitiated on antibiotic therapy. Symptomatically improved this morning. Continue Levofloxacin day #4. (6) HTN (hypertension): Status: Chronic Assessment and plan: Currently on BB, and Long acting nitrate. Restarting MERCEDES-I as above. 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 Continue ASA, statin, nitrate, and BB. Also on anti-anginal with Ranolazine. - Given drop in EF may benefit from stress once acute illness is over. (8) Elevated troponin: Status: Acute Assessment and plan: Minimal and likely related to demand in the setting of acute CHF exacerbation and poor clearance with JANINA superimposed on CKD. Downtrended with treatment of CHF. (9) DVT prophylaxis: Status: Acute Assessment and plan: On chronic anticoagulation with Coumadin. Monitor daily INR - currently supratherapeutic with coumadin placed on hold. (10) Advance directive discussed with patient: Status: Acute Assessment and plan: Full Code. Subjective Subjective Interval history since last seen: 83 year old man with a prior history of CAD and known CHF, admitted from [facility] Emergency Department on 01/08 with a diagnosis of altered mental status. Mr. Villa has a past Medical History significant for CAD with prior CABG, CHF with an EF originally believed to be at 45%. 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 He has been chronically Oxygen dependent at 3L, but without a history of COPD or lung disease - thought potentially due to his history of CHF. The patient presented to the ED with a reported episode of 'staring' and unresponsiveness while in the car, which lasted approximately 5 minutes, and was subsequently followed by a period of confusion. A very similiar event occured approximately 3 years ago, incidentally also while in a car, at which time he was seen at [facility]. Details of the full work-up is unknown as no follow-up note was found, but the patient's imaging and EEG results (EEG while awake) were essentially negative. Work-up in the ED for his current complaint of altered mental status was significant for a mild and unchanged anemia, therapeutic INR, elevated but stable creatinine, minimal elevation in lactate, and a minimal and equivocal elevation in troponin. His BNP was elevated as well. His CXR was interpreted as potential for a LLL PNA. The patient was hydrated in the ED and referred for admission. Following admission Mr. Tello had worsening BNP values and clinical signs of CHF - hydration was discontinued and he was diuresed. As his dyspnea did not improve he was also restarted on antibiotic therapy for a potential pulmonary infection. Further work-up with CT Head, Carotid Artery Ultrasound, and MRI brain were unremarkable (possible old area of hemorrhage in the right frontoparietal region). Neurology eval with potential for underlying medical condition as cause for his altered mental status. The patient's ECHO showed worsening LVEF at 30%, with PHTN and PAP's in the 70's range. This morning he feels improved and is now intermittently off supplemental oxygen at rest - His BNP has improved, and his weight remains lowered and stable despite discontinuation of diuretic therapy. He had a period of hypotension yesterday throughout the day. Creatinine remains mildly above baseline but stable. No overnight events were reported. He remains afebrile. Exam Narrative Exam Narrative: General: Patient appears comfortable, AAOX3, NAD Neck: Supple CV: Regular, nontachycardic, S1S2, no significant murmurs/gallops. Pulmonary: Clear to auscultation bilaterally, no crackles, wheezing, or rhonchi Abdomen: + Bowel Sounds, soft, nontender, nondistended Vascular: No LE edema, improved from prior 1-2 + Psych: Normal mood and affect. Objective Objective Clinical Data: Abnormal lab results 01/11/19 01/11/19 01/11/19 Range/Units 06:10 06:10 06:10 RBC 4.13 L (4.50-6.00) m/cumm Hgb 12.6 L (13.5-17.5) g/dL Hct 38.7 L (40.0-50.0) % RDW 15.4 H (11.8-14.1) % Absolute Lymphocytes 1.06 L (1.2-3.4) k/cumm Absolute Monocytes 0.98 H (0.11-0.7) k/cumm PT 49.9 H D (9.3-11.0) sec INR 4.9 H* D (0.9-1.1) BUN (7-18) mg/dL Creatinine (0.70-1.30) mg/dL Calcium (8.5-10.1) mg/dL NT-Pro-B Natriuret Pep 2373 H ( - 299) pg/mL 01/11/19 Range/Units 06:30 RBC (4.50-6.00) m/cumm Hgb (13.5-17.5) g/dL Hct (40.0-50.0) % RDW (11.8-14.1) % Absolute Lymphocytes (1.2-3.4) k/cumm Absolute Monocytes (0.11-0.7) k/cumm PT (9.3-11.0) sec INR (0.9-1.1) BUN 34 H (7-18) mg/dL Creatinine 1.83 H (0.70-1.30) mg/dL Calcium 7.9 L (8.5-10.1) mg/dL NT-Pro-B Natriuret Pep ( - 299) pg/mL Vital Signs Temperature 36.5 C 01/11/19 07:10 Temperature Source Tympanic 01/11/19 07:10 Pulse 61 01/11/19 07:25 Pulse Rhythm Regular 01/11/19 01:50 Pulse 99 H 01/07/19 17:01 Respiratory Rate 18 01/11/19 07:10 Respiratory Effort Non-Labored 01/11/19 01:50 Respiratory Depth Normal 01/11/19 01:50 Respiratory Pattern Normal 01/11/19 01:50 Blood Pressure 118/64 01/11/19 07:10 Blood Pressure Mean 84 01/07/19 17:01 Blood Pressure Position Sitting 01/07/19 11:04 Pulse Oximetry 98 01/11/19 07:10 Oxygen Delivery Method Nasal Cannula 01/11/19 07:10 Oxygen Flow Rate 2 01/11/19 07:10 Pain Level 0 01/11/19 07:10 Comment 01/10/19 11:45 Intake & Output 01/10/19 01/11/19 01/11/19 23:59 11:59 23:59 Intake Total 360 / 986.375 540 / 780 240 / 780 Output Total 375 / 1220 500 / 500 Balance -15 / -233.625 40 / 280 240 / 280 Weight 74.3 kg Intake: Oral 360 / 870 540 / 780 240 / 780 Output: Urine 375 / 1220 500 / 500 Other: Urine Color Dark Kajal Yellow Urine Appearance Clear Clear Urine Odor None Strong Voiding Methods Urinal Urinal Laboratory Results WBC 7.38 k/cumm (4.4-10.8) 01/11/19 06:10 RBC 4.13 m/cumm (4.50-6.00) L 01/11/19 06:10 Hgb 12.6 g/dL (13.5-17.5) L 01/11/19 06:10 Hct 38.7 % (40.0-50.0) L 01/11/19 06:10 MCV 93.7 fL (80-95) 01/11/19 06:10 MCH 30.5 pg (27.0-33.0) 01/11/19 06:10 MCHC 32.6 g/dL (32.0-36.0) 01/11/19 06:10 RDW 15.4 % (11.8-14.1) H 01/11/19 06:10 Plt Count 178 x1000/uL (130-400) 01/11/19 06:10 MPV 10.0 fL (8.0-11.0) 01/11/19 06:10 Immature Gran % 0.3 01/11/19 06:10 Neutrophils % 69.5 01/11/19 06:10 Lymphocytes % 14.4 01/11/19 06:10 Monocytes % 13.3 01/11/19 06:10 Eosinophils % 2.4 01/11/19 06:10 Basophils % 0.1 01/11/19 06:10 Absolute Neutrophils 5.13 k/cumm (1.2-6.7) 01/11/19 06:10 Absolute Lymphocytes 1.06 k/cumm (1.2-3.4) L 01/11/19 06:10 Absolute Monocytes 0.98 k/cumm (0.11-0.7) H 01/11/19 06:10 Absolute Eosinophils 0.18 k/cumm (0.0-0.7) 01/11/19 06:10 Absolute Basophils 0.01 k/cumm (0.0-0.2) 01/11/19 06:10 PT 49.9 sec (9.3-11.0) H D 01/11/19 06:10 INR 4.9 (0.9-1.1) H* D 01/11/19 06:10 APTT 29.2 sec (21.0-31.4) 01/07/19 11:30 Sodium 140 mmol/L (136-145) 01/11/19 06:30 Potassium 4.2 mmol/L (3.5-5.1) 01/11/19 06:30 Chloride 105 mmol/L (98-107) 01/11/19 06:30 Carbon Dioxide 26.0 mmol/L (21.0-32.0) 01/11/19 06:30 Anion Gap 9.0 mmol/L (3-11) 01/11/19 06:30 BUN 34 mg/dL (7-18) H 01/11/19 06:30 Creatinine 1.83 mg/dL (0.70-1.30) H 01/11/19 06:30 Estimated GFR/1.73 m2 35.71 (mL/min/1.73m2) 01/11/19 06:30 Glucose 97 mg/dL (70-100) 01/11/19 06:30 Lactate 1.2 mmol/L (0.6-1.4) 01/08/19 05:35 Calcium 7.9 mg/dL (8.5-10.1) L 01/11/19 06:30 Magnesium 2.1 mg/dL (1.8-2.4) 01/11/19 06:10 Total Bilirubin 0.7 mg/dL (0.2-1.0) 01/07/19 11:30 AST 24 U/L (15-37) 01/07/19 11:30 ALT 27 U/L (16-63) 01/07/19 11:30 Alkaline Phosphatase 46 U/L (46-116) 01/07/19 11:30 Troponin I 0.17 ng/mL (0.00-0.06) H* 01/10/19 06:32 NT-Pro-B Natriuret Pep 2373 pg/mL (-299) H 01/11/19 06:10 Total Protein 7.0 g/dL (6.4-8.2) 01/07/19 11:30 Albumin 3.1 g/dL (3.4-5.0) L 01/07/19 11:30 Procalcitonin < 0.1 ng/mL 01/07/19 14:40 Urine Color Yellow (Yellow) 01/07/19 13:12 Urine Clarity Clear (Clear) 01/07/19 13:12 Urine pH 6.5 (5-8) 01/07/19 13:12 Ur Specific Sapphire 1.020 (1.005-1.025) 01/07/19 13:12 Urine Protein 30 mg/dL (Negative) H 01/07/19 13:12 Urine Ketones Negative mg/dL (Negative) 01/07/19 13:12 Urine Blood Negative (Negative) 01/07/19 13:12 Urine Nitrite Negative (Negative) 01/07/19 13:12 Urine Bilirubin Negative (Negative) 01/07/19 13:12 Urine Urobilinogen 0.2 EU/dL (Up TO 0.2) 01/07/19 13:12 Ur Leukocyte Esterase Trace (Negative) H 01/07/19 13:12 Urine RBC Negative (0-2) 01/07/19 13:12 Urine WBC 5-10 HPF (0-5) 01/07/19 13:12 Ur Epithelial Cells Negative HPF (Negative) 01/07/19 13:12 Urine Crystals Negative HPF (Negative) 01/07/19 13:12 Urine Bacteria Rare HPF (Negative) 01/07/19 13:12 Urine Casts Negative LPF (Negative) 01/07/19 13:12 Urine Mucus Negative (Negative) 01/07/19 13:12 Ur Culture Indicated? Yes 01/07/19 13:12 Urine Glucose 100 mg/dL (Negative) 01/07/19 13:12
[2019-01-11] MEDS: Lisinopril 5 MG TAB 2.5 MG PO (14:43)
--- NOTE | 2019-01-11 17:28 | CMPROGNOTE_ITS ---
- If Service Date Differs Date of service: 01/11/19 Time of Service: 17:28 Care Management Progress Note S/O: CM met with patient and his spouse at the bedside today. No change in status he remains on course of abx, and monitoring of fluid balance. A:Simba is a 83 year old male admitted with reports of AMS, elevated cardiac enzymes and CHF vs pneumonia P: Simba will be discharged home when medically ready per provider. Simba will resume DME services for home oxygen. He will need a follow up with primary care for medication management and follow up prior to returning to [place] in January. Spouse Arias to transport him home when medically ready. Anticipate no additional services needed at time of discharge.
[2019-01-11] MEDS: levoFLOXacin 500 MG, levoFLOXacin 250 MG 750 MG PO (18:22)
[2019-01-11] MEDS: Atorvastatin 40 MG TAB PO (21:21)
[2019-01-12] VITALS (10 sets, daily range): BP systolic 63–108; BP diastolic 41–69; PULSE 65–99; RESP 16–26; TEMP 36–36.9; O2SAT 97–100
[2019-01-12 07:09] LABS: Abs Immature Grans 0.02 k/cumm (0.0-0.09); Absolute Eosinophil Count 0.07 k/cumm (0.0-0.7); Absolute Lymphocyte Count 0.81 k/cumm (1.2-3.4); Absolute Monocyte Count 0.98 k/cumm (0.11-0.7); Absolute Neutrophil Count 6.37 k/cumm (1.2-6.7); Eosinophils % 0.8; HCT 38.4 % (40.0-50.0); HGB 12.5 g/dL (13.5-17.5); Immature Grans % 0.2; Lymphocytes % 9.8; Mean Corp. HGB Concentration 32.6 g/dL (32.0-36.0); Mean Corpuscular Hemoglobin 30.6 pg (27.0-33.0); Mean Corpuscular Volume 94.1 fL (80-95); Mean Platelet Volume 9.7 fL (8.0-11.0); Monocytes % 11.9; Neutrophils % 77.3; Platelet Count 180 x1000/uL (130-400); RBC 4.08 m/cumm (4.50-6.00); RBC Distribution Width 15.1 % (11.8-14.1); White Blood Cell Count 8.25 k/cumm (4.4-10.8)
[2019-01-12 07:19] LABS: Anion Gap 5.9 mmol/L (3-11); BUN 37 mg/dL (7-18); CO2 28.1 mmol/L (21.0-32.0); CREATININE 1.85 mg/dL (0.70-1.30); Chloride 104 mmol/L (98-107); Estimated GFR 35.26 (mL/min/1.73m2); Glucose 111 mg/dL (70-100); Magnesium 2.1 mg/dL (1.8-2.4); Sodium 138 mmol/L (136-145)
--- NOTE | 2019-01-12 07:21 | RESPIRATORY ---
01/11/19 RT walked with patient, 97% on 2Lpm nasal cannula. HR 102 RR 22. Reported to Hospitalist
[2019-01-12] MEDS: Normal Saline Flush 10 ML SYR IVP ×2 (09:45→19:22)
[2019-01-12] MEDS: Isosorbide Mononitrate 60 MG TABCR 120 MG PO (09:46)
[2019-01-12] MEDS: Oxybutynin 5 MG TAB PO ×2 (09:46→19:23)
[2019-01-12] MEDS: Omeprazole 20 MG CAPCR PO (09:46)
[2019-01-12] MEDS: Aspirin E.C. 81 MG TABEC PO (09:47)
[2019-01-12] MEDS: Multivitamin TAB 1 TAB PO (09:47)
[2019-01-12] MEDS: Cholecalciferol (Vitamin D3) 1,000 UNIT TAB 1000 UNITS PO (09:47)
[2019-01-12] MEDS: Cyanocobalamin 500 MCG TAB PO (09:47)
[2019-01-12] MEDS: guaiFENesin 600 MG TABCR PO ×2 (09:47→19:23)
[2019-01-12] MEDS: Metoprolol CR 25 MG TABCR PO (09:47)
--- NOTE | 2019-01-12 12:14 | PT.INTREAT ---
Date of service: 01/12/19 Time of Service: 12:14 PT Notes Inpatient Physical Therapy Treatment Note [facility] Date: 01/12/19 PRECAUTIONS: Fall, Monitor SaO2 with activity SUBJECTIVE: Simba is agreeable to participating in PT OBJECTIVE: PAIN: No c/o pain BED MOBILITY/TRANSFERS Sit-stand: SBA with verbal cueing for safety Stand-sit: SBA with verbal cueing for safety GAIT Assistive Device: 4WW Weight bearing: Full Assist: SBA Distance: 100' in a.m. Deviation: Verbal cueing for posture and 4WW mechanics for safety VITALS: Patient felt dizzy and weak following stair training, BP was noted to be 64/41 in sitting position. Nursing notified and patient transferred to bed with assist x3. THEREX: Patient completed a resisted UE strengthening program, in a seated position, as per flow sheet. STAIRS: Up/down 3x4 using B rails and a step-to pattern ASSESSMENT: Patient tolerated session well, with complaints of dizziness and LE weakness following stair training due to low blood pressure. He was able to tolerate a progression gait distance with 4WW support and SBA. Patient would benefit from continued gait and transfer training, as well as strengthening for improved mobility. PLAN: Continue with PT's POC TREATMENT CODE/TIME: Session 1: 20 minutes; [id number]
--- NOTE | 2019-01-12 12:34 | NUR.NOTE ---
Nursing Note: Follow through with patient he stated he feels better now than he did earlier, still awaiting further orders from the provider
[2019-01-12 13:55] LABS: Potassium 4.5 mmol/L (3.5-5.1)
--- NOTE | 2019-01-12 14:00 | PGE_ITS ---
Date of Service Date of service: 01/12/19 Time of Service: 14:03 Assessment and Plan Assessment and plan (1) Altered mental status: Status: Acute Assessment and plan: Negative CT Head, Carotid Ultrasound, and MRI of the Brain - although with evidence of possible area in the right frontoparietal region, likely representing an old hemorrhage - reviewed by neurologist and appa rently unchanged from prior imaging in 2017. Previous EEG in 2017 while awake also negative. Current episode mimicked prior experience 2 years ago. - Per Neurology eval patient's symptoms were likely related to underlying medical condition (i.e. hypotension, CHF, Hypoxia, etc.) and although cannot completely rule out seizure activity, recommended against EEG unless recurrent symptoms. No abnormal activity on telemetry. ECHO as below. Patient without any further episodes while hospitalized. (2) Acute exacerbation of CHF (congestive heart failure): Status: Acute Assessment and plan: Likely ischemic in etiology, with EF worsening to 30%. Although without significant pulmonary findings, patient appeared to have LE edema that has improved with diuresis, and now with improvement in BNP and respiratory symptoms as well. Also question whether chronic O2 use may be due to pulmonary edema in the setting of CHF, as patient does not have a history of COPD and no evidence of ILD by imaging. - Appears dry clinically, and with development of hypotension - diuresis discontinued and remains on hold. Spouse reports similiar hypotensive episodes intermittently over the last few months. - Continue ASA, statin,and BB. Patient on long-acting nitrate and Ranolazine as anti-anginals. Given continued hypotension will hold Isosorbide Mononitrate. - Patient's Enalapril discontinued in setting of JANINA and hypotension - will resume MERCEDES-I with minimal dose Lisinopril when aboe. Continue to monitor both blood pressure and creatinine. - Given worsening LVEF will benefit from outpatient stress testing as well. (3) Ibayr-nc-yckpjsy kidney injury: Status: Acute Assessment and plan: In setting of acute CHF exacerbation and active diuresis. Monitor, renally dose medications, and avoid nephrotoxins. Creatinine stable and may become patient's new baseline given need for diuretic and MERCEDES-I use. (4) Pulmonary hypertension: Status: Acute Assessment and plan: Noted, with PAPs in the 70's. (5) CAP (community acquired pneumonia): Status: Acute Assessment and plan: Procalcitonin undetectable, which may be on the basis of either early infection or non-bacterial source. However, as Mr. Villa had continued to have dyspnea despite diuresis, and was reinitiated on antibiotic therapy. Symptomatically improved this morning. Continue Levofloxacin day #4. (6) HTN (hypertension): Status: Chronic Assessment and plan: Currently on BB, with Long acting nitrate placed on hold. Consider restarting MERCEDES-I as above if able. 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 Continue ASA, statin, nitrate (on hold), and BB. Also on anti-anginal with Ranolazine. - Given drop in EF may benefit from stress once acute illness is over. (8) Elevated troponin: Status: Acute Assessment and plan: Minimal and likely related to demand in the setting of acute CHF exacerbation and poor clearance with JANINA superimposed on CKD. Downtrended with treatment of CHF. (9) DVT prophylaxis: Status: Acute Assessment and plan: On chronic anticoagulation with Coumadin. Monitor daily INR - currently supratherapeutic with coumadin remaining on hold. (10) Advance directive discussed with patient: Status: Acute Assessment and plan: Full Code. Subjective Subjective Interval history since last seen: 83 year old man with a prior history of CAD and known CHF, admitted from [facility] Emergency Department on 01/08 with a diagnosis of altered mental status. Mr. Villa has a past Medical History significant for CAD with prior CABG, CHF with an EF originally believed to be at 45%. 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 He has been chronically Oxygen dependent at 3L, but without a history of COPD or lung disease - thought potentially due to his history of CHF. The patient presented to the ED with a reported episode of 'staring' and unresponsiveness while in the car, which lasted approximately 5 minutes, and was subsequently followed by a period of confusion. A very similiar event occured approximately 3 years ago, incidentally also while in a car, at which time he was seen at [facility]. Details of the full work-up is unknown as no follow-up note was found, but the patient's imaging and EEG results (EEG while awake) were essentially negative. Work-up in the ED for his current complaint of altered mental status was significant for a mild and unchanged anemia, therapeutic INR, elevated but stable creatinine, m inimal elevation in lactate, and a minimal and equivocal elevation in troponin. His BNP was elevated as well. His CXR was interpreted as potential for a LLL PNA. The patient was hydrated in the ED and referred for admission. Following admission Mr. Tello had worsening BNP values and clinical signs of CHF - hydration was discontinued and he was diuresed. As his dyspnea did not improve he was also restarted on antibiotic therapy for a potential pulmonary infection based on the CXR findings. Further work-up with CT Head, Carotid Artery Ultrasound, and MRI brain were unremarkable (possible old area of hemorrhage in the right frontoparietal region). Neurology eval with potential for underlying medical condition as cause for his altered mental status. The patient's ECHO showed worsening LVEF at 30%, with PHTN and PAP's in the 70's range. This morning he feels improved from a respiratory standpoint again, and is now intermittently off supplemental oxygen at rest - even though his BNP has improved, and his weight remains lowered and stable despite discontinuation of diuretic therapy, his creatinine remains above his baseline, and continues to have bouts of hypotension throughout the day. He remains afebrile. Exam Narrative Exam Narrative: General: Patient appears comfortable, AAOX3, NAD Neck: Supple CV: Regular, nontachycardic, S1S2, no significant murmurs/gallops. Pulmonary: Clear to auscultation bilaterally, no crackles, wheezing, or rhonchi Abdomen: + Bowel Sounds, soft, nontender, nondistended Vascular: No LE edema, improved from prior 2 + Psych: Normal mood and affect. Objective Objective Clinical Data: Abnormal lab results 01/12/19 01/12/19 01/12/19 Range/Units 06:30 06:30 06:30 RBC 4.08 L (4.50-6.00) m/cumm Hgb 12.5 L (13.5-17.5) g/dL Hct 38.4 L (40.0-50.0) % RDW 15.1 H (11.8-14.1) % Absolute Lymphocytes 0.81 L (1.2-3.4) k/cumm Absolute Monocytes 0.98 H (0.11-0.7) k/cumm PT 39.0 H (9.3-11.0) sec INR 4.0 H D (0.9-1.1) BUN 37 H (7-18) mg/dL Creatinine 1.85 H (0.70-1.30) mg/dL Glucose 111 H (70-100) mg/dL Calcium 8.0 L (8.5-10.1) mg/dL Vital Signs Temperature 36.3 C L 01/12/19 10:08 Temperature Source Tympanic 01/12/19 10:08 Pulse 99 H 01/12/19 10:08 Pulse Rhythm Irregular 01/12/19 09:30 Pulse 99 H 01/07/19 17:01 Respiratory Rate 26 H 01/12/19 10:08 Respiratory Effort 01/12/19 09:30 Respiratory Depth Shallow 01/12/19 09:30 Respiratory Pattern Normal 01/12/19 02:30 Blood Pressure 89/64 L 01/12/19 12:55 Blood Pressure Mean 84 01/07/19 17:01 Blood Pressure Position Sitting 01/07/19 11:04 Pulse Oximetry 98 01/12/19 10:08 Oxygen Delivery Method Nasal Cannula 01/12/19 10:08 Oxygen Flow Rate 2 01/12/19 10:08 Pain Level 0 01/12/19 10:08 Comment 01/12/19 10:08 Intake & Output 01/11/19 01/12/19 01/12/19 23:59 11:59 23:59 Intake Total 480 / 1020 360 / 360 Output Total 400 / 900 550 / 550 Balance 80 / 120 -190 / -190 Weight 74.4 kg Intake: IV 0 / 0 Oral 480 / 1020 360 / 360 Output: Urine 400 / 900 550 / 550 Other: Urine Color Straw Straw Urine Appearance Clear Clear Urine Odor None Voiding Methods Urinal Urinal Laboratory Results WBC 8.25 k/cumm (4.4-10.8) 01/12/19 06:30 RBC 4.08 m/cumm (4.50-6.00) L 01/12/19 06:30 Hgb 12.5 g/dL (13.5-17.5) L 01/12/19 06:30 Hct 38.4 % (40.0-50.0) L 01/12/19 06:30 MCV 94.1 fL (80-95) 01/12/19 06:30 MCH 30.6 pg (27.0-33.0) 01/12/19 06:30 MCHC 32.6 g/dL (32.0-36.0) 01/12/19 06:30 RDW 15.1 % (11.8-14.1) H 01/12/19 06:30 Plt Count 180 x1000/uL (130-400) 01/12/19 06:30 MPV 9.7 fL (8.0-11.0) 01/12/19 06:30 Immature Gran % 0.2 01/12/19 06:30 Neutrophils % 77.3 01/12/19 06:30 Lymphocytes % 9.8 01/12/19 06:30 Monocytes % 11.9 01/12/19 06:30 Eosinophils % 0.8 01/12/19 06:30 Basophils % 0.0 01/12/19 06:30 Absolute Neutrophils 6.37 k/cumm (1.2-6.7) 01/12/19 06:30 Absolute Lymphocytes 0.81 k/cumm (1.2-3.4) L 01/12/19 06:30 Absolute Monocytes 0.98 k/cumm (0.11-0.7) H 01/12/19 06:30 Absolute Eosinophils 0.07 k/cumm (0.0-0.7) 01/12/19 06:30 Absolute Basophils 0.00 k/cumm (0.0-0.2) 01/12/19 06:30 PT 39.0 sec (9.3-11.0) H 01/12/19 06:30 INR 4.0 (0.9-1.1) H D 01/12/19 06:30 APTT 29.2 sec (21.0-31.4) 01/07/19 11:30 Sodium 138 mmol/L (136-145) 01/12/19 06:30 Potassium 4.5 mmol/L (3.5-5.1) 01/12/19 13:06 Chloride 104 mmol/L (98-107) 01/12/19 06:30 Carbon Dioxide 28.1 mmol/L (21.0-32.0) 01/12/19 06:30 Anion Gap 5.9 mmol/L (3-11) 01/12/19 06:30 BUN 37 mg/dL (7-18) H 01/12/19 06:30 Creatinine 1.85 mg/dL (0.70-1.30) H 01/12/19 06:30 Estimated GFR/1.73 m2 35.26 (mL/min/1.73m2) 01/12/19 06:30 Glucose 111 mg/dL (70-100) H 01/12/19 06:30 Lactate 1.2 mmol/L (0.6-1.4) 01/08/19 05:35 Calcium 8.0 mg/dL (8.5-10.1) L 01/12/19 06:30 Magnesium 2.1 mg/dL (1.8-2.4) 01/12/19 06:30 Total Bilirubin 0.7 mg/dL (0.2-1.0) 01/07/19 11:30 AST 24 U/L (15-37) 01/07/19 11:30 ALT 27 U/L (16-63) 01/07/19 11:30 Alkaline Phosphatase 46 U/L (46-116) 01/07/19 11:30 Troponin I 0.17 ng/mL (0.00-0.06) H* 01/10/19 06:32 NT-Pro-B Natriuret Pep 2373 pg/mL (-299) H 01/11/19 06:10 Total Protein 7.0 g/dL (6.4-8.2) 01/07/19 11:30 Albumin 3.1 g/dL (3.4-5.0) L 01/07/19 11:30 Procalcitonin < 0.1 ng/mL 01/07/19 14:40 Urine Color Yellow (Yellow) 01/07/19 13:12 Urine Clarity Clear (Clear) 01/07/19 13:12 Urine pH 6.5 (5-8) 01/07/19 13:[address] 1.020 (1.005-1.025) 01/07/19 13:12 Urine Protein 30 mg/dL (Negative) H 01/07/19 13:12 Urine Ketones Negative mg/dL (Negative) 01/07/19 13:12 Urine Blood Negative (Negative) 01/07/19 13:12 Urine Nitrite Negative (Negative) 01/07/19 13:12 Urine Bilirubin Negative (Negative) 01/07/19 13:12 Urine Urobilinogen 0.2 EU/dL (Up TO 0.2) 01/07/19 13:12 Ur Leukocyte Esterase Trace (Negative) H 01/07/19 13:12 Urine RBC Negative (0-2) 01/07/19 13:12 Urine WBC 5-10 HPF (0-5) 01/07/19 13:12 Ur Epithelial Cells Negative HPF (Negative) 01/07/19 13:12 Urine Crystals Negative HPF (Negative) 01/07/19 13:12 Urine Bacteria Rare HPF (Negative) 01/07/19 13:12 Urine Casts Negative LPF (Negative) 01/07/19 13:12 Urine Mucus Negative (Negative) 01/07/19 13:12 Ur Culture Indicated? Yes 01/07/19 13:12 Urine Glucose 100 mg/dL (Negative) 01/07/19 13:12
--- NOTE | 2019-01-12 14:49 | PDOC.CMPRO ---
- If Service Date Differs Date of service: 01/12/19 Time of Service: 14:49 Care Management Progress Note S/O: CM met with patient and his spouse at the bedside today. Simba appears down hearted states that he had another episode of low blood pressure today and was very symptomatic. He and his spouse want to understand what is happening with Sylvester and feel that they need some answers before returning to [place]. Sylvester does not want to stay at a SNF facility, and wants to be able to return to [place] and accepts that he may not be able to return to [place]. He appears to have some understanding of his heart condition and his intolerance to activity. CM discussed palliative care with the Sylvester and his spouse and he states that he is unsure that he wants that process to start in [place]. His spouse Arias states they have a lot of support in [place] and that they are five minutes from the hospital. She knows several people there that have had hospice care and knows who to approach for services. CM provided support and listen to the Sylvester and Kristie goals. CM provided education related to palliative vs hospice. Sylvester is clear his goal is to get to [place] as soon as possible and stay there. Arias's children are in route to [place] to assist with needs and provide support. A:Simba is a 83 year old male admitted with reports of AMS, elevated cardiac enzymes and CHF vs pneumonia P: Simba will be discharged home when medically ready per provider. Simba continues to receive PT while inpatient. Simba will resume DME services for home oxygen. He will need a follow up with primary care for medication management and follow up prior to returning to [place] in January. Spouse Arias to transport him home when medically ready. Anticipate no additional services needed at time of discharge.
--- NOTE | 2019-01-12 16:38 | PT.INNT ---
Date of service: 01/12/19 Time of Service: 16:08 PT Notes Patient is seen this afternoon to assess safety for and ability to participate in a second PT session after a sudden hypotensive event following first PT session this morning. Also, patient was made NPO and has not had anything to eat since breakfast today. PT treatment is deferred due to fatigue, lack of food intake, and weakness. Patient is also leary about doing anything this afternoon and requested that PT session resume tomorrow morning so he could rest.
[2019-01-12] MEDS: Atorvastatin 40 MG TAB PO (21:19)
[2019-01-13] VITALS (8 sets, daily range): BP systolic 100–118; BP diastolic 59–79; PULSE 68–79; RESP 18; TEMP 36.1–36.6; O2SAT 98–99
[2019-01-13 07:30] LABS: Abs Immature Grans 0.01 k/cumm (0.0-0.09); Absolute Basophil Count 0.01 k/cumm (0.0-0.2); Absolute Eosinophil Count 0.06 k/cumm (0.0-0.7); Absolute Lymphocyte Count 0.88 k/cumm (1.2-3.4); Absolute Monocyte Count 0.88 k/cumm (0.11-0.7); Absolute Neutrophil Count 5.01 k/cumm (1.2-6.7); Basophils % 0.1; Eosinophils % 0.9; HCT 37.6 % (40.0-50.0); HGB 12.1 g/dL (13.5-17.5); Immature Grans % 0.1; Lymphocytes % 12.8; Mean Corp. HGB Concentration 32.2 g/dL (32.0-36.0); Mean Corpuscular Hemoglobin 30.5 pg (27.0-33.0); Mean Corpuscular Volume 94.7 fL (80-95); Mean Platelet Volume 9.6 fL (8.0-11.0); Monocytes % 12.8; Neutrophils % 73.3; Platelet Count 171 x1000/uL (130-400); RBC 3.97 m/cumm (4.50-6.00); RBC Distribution Width 14.9 % (11.8-14.1); White Blood Cell Count 6.85 k/cumm (4.4-10.8)
[2019-01-13 07:43] LABS: Anion Gap 6.2 mmol/L (3-11); BUN 32 mg/dL (7-18); CO2 26.8 mmol/L (21.0-32.0); CREATININE 1.72 mg/dL (0.70-1.30); Calcium 8.2 mg/dL (8.5-10.1); Chloride 106 mmol/L (98-107); Estimated GFR 38.35 (mL/min/1.73m2); Glucose 100 mg/dL (70-100); Magnesium 2.2 mg/dL (1.8-2.4); Sodium 139 mmol/L (136-145)
[2019-01-13 07:44] LABS: INR 3.2 (0.9-1.1); Prothrombin Time 30.8 sec (9.3-11.0)
[2019-01-13] MEDS: Oxybutynin 5 MG TAB PO (08:44)
[2019-01-13] MEDS: guaiFENesin 600 MG TABCR PO ×2 (08:44→19:19)
[2019-01-13] MEDS: Cholecalciferol (Vitamin D3) 1,000 UNIT TAB 1000 UNITS PO (08:44)
[2019-01-13] MEDS: Omeprazole 20 MG CAPCR PO (08:45)
[2019-01-13] MEDS: Multivitamin TAB 1 TAB PO (08:45)
[2019-01-13] MEDS: Cyanocobalamin 500 MCG TAB PO (08:45)
[2019-01-13] MEDS: Aspirin E.C. 81 MG TABEC PO (08:45)
--- NOTE | 2019-01-13 10:03 | CMPROGNOTE_ITS ---
- If Service Date Differs Date of service: 01/13/19 Time of Service: 10:04 Care Management Progress Note S/O: Simba was sitting up in a chair when CM came to see him. He was visiting with family and exhibited a good sense of humor during the conversation. Simba and his re-iterated their desire to be discharged to enable them to get back to [place] and reconnect with his PCP. They expressed feeling a little frustrated not knowing what the plan is. CM explained that Simba's condition i s complicated and that there are many factors to consider with his care. They were encouraged to share their feelings and questions with Dr. Carnes when she comes to see him. Simba has been refusing PT since yesterday when his blood pressure dropped significantly during therapy. A:Simba is a 83 year old male admitted with reports of AMS, elevated cardiac enzymes and CHF vs pneumonia P: Simba will be discharged home when medically ready per provider. Simba will resume DME services for home oxygen. He will need a follow up with primary care for medication management and follow up prior to returning to [place]. Spouse Arias to transport him home when medically ready. Anticipate no additional services needed at time of discharge. CM to continue to provide support to patient, family and discharge planning needs.
--- NOTE | 2019-01-13 10:07 | PT.INNT ---
Date of service: 01/13/19 Time of Service: 10:07 PT Notes 01/13/19 Refused PT x 2 this AM. Adenike Hinds PTA Clinic location: [facility] [place], [place]
--- NOTE | 2019-01-13 15:31 | PGE_ITS ---
Date of Service Date of service: 01/13/19 Time of Service: 15:31 Assessment and Plan Assessment and plan (1) Altered mental status: Status: Acute Assessment and plan: Episodic, currently at baseline. It is not clear if this happens in setting of hypotension/orthostasis/arrhythmia/seizures. The patient is on oxybutynin, which can cause arrhythmias and seizures. Check orthostatic vital signs. Negative CT Head, Carotid Ultrasound, and MRI of the Brain - ? 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 Previous EEG in 2017 while awake also negative. Current episode mimicked prior experience 2 years ago. -will d/c oxybutynin and observe. (2) Orthostatic hypotension: Status: Acute Assessment and plan: with a symptomatic episode yesterday. Read above. ?Recurrent PE, side effect of oxybutynin. D/c oxybutynin. Monitor on tele; check serial orthostatics. (3) Acute exacerbation of CHF (congestive heart failure): Status: Acute Assessment and plan: Likely ischemic, EF 30%. Symptoms likely exacerbated by pulmonary hypertension. In addition, I cannot rule out recurrent PE. - Holding off of diuresis at this time. Imdur and jamaica-i d/c'ed. Oxybutynin d/c'ed. - Continue ASA, statin, BB, Ranolazine - Given worsening LVEF will benefit from outpatient stress testing as well. (4) Ydade-qg-nmicnfq kidney injury: Status: Acute Assessment and plan: In setting of acute CHF exacerbation and active diuresis, as well as pulmonary hypertension. Monitor bladder scans now that oxybutynin has been d/c'ed. Continue to hold jamaica-i and diuretics. 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 I cannot rule out recurrent PE. Continue anticoagulation, supplementation with O2. (6) CAP (community acquired pneumonia): Status: Acute Assessment and plan: Procalcitonin undetectable. Finished a 5 day course of antibiotics today. (7) HTN (hypertension): Status: Chronic Assessment and plan: BP's are actually low normal even without the jamaica-i and imdur. D/c oxybutynin. Check orthostatics. (8) ASCVD (arteriosclerotic cardiovascular disease): Status: Chronic Assessment and plan: S/p CABG in 1997, now with ICMO. Continue ASA, statin, BB, ranexa. - Given drop in EF may benefit from stress once acute illness is over. (9) Elevated troponin: Status: Acute Assessment and plan: Minimal and likely related to demand in the setting of acute CHF exacerbation and poor clearance with JANINA superimposed on CKD. Downtrended with treatment of CHF. (10) DVT prophylaxis: Status: Acute Assessment and plan: On chronic anticoagulation with Coumadin. Monitor daily INR - currently supratherapeutic with coumadin remaining on hold. (11) Advance directive discussed with patient: Status: Acute Assessment and plan: Full Code. IF the patient continues to have orthstasis despite us addressing his medications and the family still wants to take the patient home to [place], I have introduced the idea of it being on comfort measures. Subjective Subjective Interval history since last seen: Mr Villa states that he hasn't been up today other than from bed to chair because of the fear of the episode that happened yesterday (symptomatic hypotension while working with PT) recurring. He hasn't had any flushing today, denies dizziness while sitting, having chest pain. His shortness of breath is at his baseline. Denies nausea. Per , the patient's episodes have been happening for 2 years. She also states that he was started on oxybutynin 2 years ago. She is not sure what started first - the episodes or the oxybutynin. We spoke about the fact that it's possible that some of these episodes could be related to pulmonary hypertension and arrhythmias as well as small PE's, which we really can't rule out. He is s/p IVC filter, but it's not 100% protective. Exam Narrative Exam Narrative: General: very pleasant elderly male, A&Ox3, sitting up comfortably in a chair HEENT: EOMI, MMM Heart: RRR, quiet LISA Lungs: CTAB GI: abdomen is soft, nontender, nondistended Extremities: no e/c/c BLE's Objective Objective Clinical Data: Abnormal lab results 01/13/19 01/13/19 01/13/19 Range/Units 06:56 06:56 06:56 RBC 3.97 L (4.50-6.00) m/cumm Hgb 12.1 L (13.5-17.5) g/dL Hct 37.6 L (40.0-50.0) % RDW 14.9 H (11.8-14.1) % Absolute Lymphocytes 0.88 L (1.2-3.4) k/cumm Absolute Monocytes 0.88 H (0.11-0.7) k/cumm PT 30.8 H (9.3-11.0) sec INR 3.2 H D (0.9-1.1) BUN 32 H (7-18) mg/dL Creatinine 1.72 H (0.70-1.30) mg/dL Calcium 8.2 L (8.5-10.1) mg/dL Vital Signs Temperature 36.3 C L 01/13/19 11:35 Temperature Source Tympanic 01/13/19 11:35 Pulse 70 01/13/19 11:35 Pulse Rhythm Regular 01/13/19 08:30 Pulse 99 H 01/07/19 17:01 Respiratory Rate 18 01/13/19 11:35 Respiratory Effort Incrsd Work of Breathing 01/13/19 08:30 Respiratory Depth Normal 01/13/19 08:30 Respiratory Pattern Normal 01/13/19 08:30 Blood Pressure 102/59 L 01/13/19 11:35 Blood Pressure Mean 84 01/07/19 17:01 Blood Pressure Position Sitting 01/07/19 11:04 Pulse Oximetry 99 01/13/19 11:35 Oxygen Delivery Method Nasal Cannula 01/13/19 11:35 Oxygen Flow Rate 2 01/13/19 11:35 Pain Level 0 01/13/19 11:35 Comment 01/12/19 19:24 Intake & Output 01/12/19 01/13/19 01/13/19 23:59 11:59 23:59 Intake Total 800 / 1040 240 / 1040 Output Total 675 / 1225 Balance -665 / -855 800 / 1040 240 / 1040 Weight 74.2 kg Intake: IV Oral 790 / 1030 240 / 1030 Output: Urine 675 / 1225 Other: Urine Color Dark Kajal Urine Appearance Clear Urine Odor None Voiding Methods Urinal Laboratory Results WBC 6.85 k/cumm (4.4-10.8) 01/13/19 06:56 RBC 3.97 m/cumm (4.50-6.00) L 01/13/19 06:56 Hgb 12.1 g/dL (13.5-17.5) L 01/13/19 06:56 Hct 37.6 % (40.0-50.0) L 01/13/19 06:56 MCV 94.7 fL (80-95) 01/13/19 06:56 MCH 30.5 pg (27.0-33.0) 01/13/19 06:56 MCHC 32.2 g/dL (32.0-36.0) 01/13/19 06:56 RDW 14.9 % (11.8-14.1) H 01/13/19 06:56 Plt Count 171 x1000/uL (130-400) 01/13/19 06:56 MPV 9.6 fL (8.0-11.0) 01/13/19 06:56 Immature Gran % 0.1 01/13/19 06:56 Neutrophils % 73.3 01/13/19 06:56 Lymphocytes % 12.8 01/13/19 06:56 Monocytes % 12.8 01/13/19 06:56 Eosinophils % 0.9 01/13/19 06:56 Basophils % 0.1 01/13/19 06:56 Absolute Neutrophils 5.01 k/cumm (1.2-6.7) 01/13/19 06:56 Absolute Lymphocytes 0.88 k/cumm (1.2-3.4) L 01/13/19 06:56 Absolute Monocytes 0.88 k/cumm (0.11-0.7) H 01/13/19 06:56 Absolute Eosinophils 0.06 k/cumm (0.0-0.7) 01/13/19 06:56 Absolute Basophils 0.01 k/cumm (0.0-0.2) 01/13/19 06:56 PT 30.8 sec (9.3-11.0) H 01/13/19 06:56 INR 3.2 (0.9-1.1) H D 01/13/19 06:56 APTT 29.2 sec (21.0-31.4) 01/07/19 11:30 Sodium 139 mmol/L (136-145) 01/13/19 06:56 Potassium 5.0 mmol/L (3.5-5.1) 01/13/19 06:56 Chloride 106 mmol/L (98-107) 01/13/19 06:56 Carbon Dioxide 26.8 mmol/L (21.0-32.0) 01/13/19 06:56 Anion Gap 6.2 mmol/L (3-11) 01/13/19 06:56 BUN 32 mg/dL (7-18) H 01/13/19 06:56 Creatinine 1.72 mg/dL (0.70-1.30) H 01/13/19 06:56 Estimated GFR/1.73 m2 38.35 (mL/min/1.73m2) 01/13/19 06:56 Glucose 100 mg/dL (70-100) 01/13/19 06:56 Lactate 1.2 mmol/L (0.6-1.4) 01/08/19 05:35 Calcium 8.2 mg/dL (8.5-10.1) L 01/13/19 06:56 Magnesium 2.2 mg/dL (1.8-2.4) 01/13/19 06:56 Total Bilirubin 0.7 mg/dL (0.2-1.0) 01/07/19 11:30 AST 24 U/L (15-37) 01/07/19 11:30 ALT 27 U/L (16-63) 01/07/19 11:30 Alkaline Phosphatase 46 U/L (46-116) 01/07/19 11:30 Troponin I 0.17 ng/mL (0.00-0.06) H* 01/10/19 06:32 NT-Pro-B Natriuret Pep 2373 pg/mL (-299) H 01/11/19 06:10 Total Protein 7.0 g/dL (6.4-8.2) 01/07/19 11:30 Albumin 3.1 g/dL (3.4-5.0) L 01/07/19 11:30 Procalcitonin < 0.1 ng/mL 01/07/19 14:40 Urine Color Yellow (Yellow) 01/07/19 13:12 Urine Clarity Clear (Clear) 01/07/19 13:12 Urine pH 6.5 (5-8) 01/07/19 13:12 Ur Specific [place] 1.020 (1.005-1.025) 01/07/19 13:12 Urine Protein 30 mg/dL (Negative) H 01/07/19 13:12 Urine Ketones Negative mg/dL (Negative) 01/07/19 13:12 Urine Blood Negative (Negative) 01/07/19 13:12 Urine Nitrite Negative (Negative) 01/07/19 13:12 Urine Bilirubin Negative (Negative) 01/07/19 13:12 Urine Urobilinogen 0.2 EU/dL (Up TO 0.2) 01/07/19 13:12 Ur Leukocyte Esterase Trace (Negative) H 01/07/19 13:12 Urine RBC Negative (0-2) 01/07/19 13:12 Urine WBC 5-10 HPF (0-5) 01/07/19 13:12 Ur Epithelial Cells Negative HPF (Negative) 01/07/19 13:12 Urine Crystals Negative HPF (Negative) 01/07/19 13:12 Urine Bacteria Rare HPF (Negative) 01/07/19 13:12 Urine Casts Negative LPF (Negative) 01/07/19 13:12 Urine Mucus Negative (Negative) 01/07/19 13:12 Ur Culture Indicated? Yes 01/07/19 13:12 Urine Glucose 100 mg/dL (Negative) 01/07/19 13:12
[2019-01-13] MEDS: Normal Saline Flush 10 ML SYR IVP (19:20)
[2019-01-13] MEDS: Atorvastatin 40 MG TAB PO (21:45)
[2019-01-14] VITALS (11 sets, daily range): BP systolic 82–132; BP diastolic 50–76; PULSE 13–110; RESP 16–24; TEMP 35.9–37; O2SAT 91–100
[2019-01-14 07:21] LABS: Abs Immature Grans 0.01 k/cumm (0.0-0.09); Absolute Basophil Count 0.01 k/cumm (0.0-0.2); Absolute Eosinophil Count 0.09 k/cumm (0.0-0.7); Absolute Lymphocyte Count 0.89 k/cumm (1.2-3.4); Absolute Monocyte Count 0.86 k/cumm (0.11-0.7); Basophils % 0.1; Eosinophils % 1.2; HGB 13.3 g/dL (13.5-17.5); Immature Grans % 0.1; Lymphocytes % 12.3; Mean Corp. HGB Concentration 32.4 g/dL (32.0-36.0); Mean Corpuscular Hemoglobin 30.6 pg (27.0-33.0); Mean Corpuscular Volume 94.3 fL (80-95); Monocytes % 11.8; Neutrophils % 74.5; Platelet Count 169 x1000/uL (130-400); RBC 4.35 m/cumm (4.50-6.00); RBC Distribution Width 14.9 % (11.8-14.1); White Blood Cell Count 7.26 k/cumm (4.4-10.8)
[2019-01-14 07:36] LABS: Anion Gap 7.8 mmol/L (3-11); BUN 30 mg/dL (7-18); CO2 26.2 mmol/L (21.0-32.0); CREATININE 1.55 mg/dL (0.70-1.30); Calcium 8.3 mg/dL (8.5-10.1); Chloride 105 mmol/L (98-107); Estimated GFR 43.25 (mL/min/1.73m2); Glucose 120 mg/dL (70-100); INR 2.4 (0.9-1.1); Magnesium 2.4 mg/dL (1.8-2.4); Potassium 4.5 mmol/L (3.5-5.1); Prothrombin Time 23.4 sec (9.3-11.0); Sodium 139 mmol/L (136-145)
[2019-01-14] MEDS: Omeprazole 20 MG CAPCR PO (08:04)
[2019-01-14] MEDS: Cholecalciferol (Vitamin D3) 1,000 UNIT TAB 1000 UNITS PO (08:04)
[2019-01-14] MEDS: Aspirin E.C. 81 MG TABEC PO (08:04)
[2019-01-14] MEDS: guaiFENesin 600 MG TABCR PO ×2 (08:04→20:46)
[2019-01-14] MEDS: Cyanocobalamin 500 MCG TAB PO (08:05)
[2019-01-14] MEDS: Multivitamin TAB 1 TAB PO (08:05)
[2019-01-14] MEDS: Metoprolol CR 25 MG TABCR PO (08:05)
--- NOTE | 2019-01-14 09:35 | PT.INNT ---
Date of service: 01/14/19 Time of Service: 09:35 PT Notes 01/14/19 Pt refuses PT services today. Adenike Hinds PTA Clinic location: [facility] [place], [place]
--- NOTE | 2019-01-14 10:53 | CMPROGNOTE_ITS ---
- If Service Date Differs Date of service: 01/14/19 Time of Service: 10:53 Care Management Progress Note S/O: Simba was sitting up in a chair visiting with family when CM met with him. He was pleasant and friendly and participated in conversation. Simba and his remain concerned about his episodes and are hoping to have some answers. They shared that Dr. Carnes has some new observations about a medication he was started on about the same time that the episodes began, so it has been dis continued. Orthostatic blood pressures has been ordered to monitor if that may be affecting his symptoms. A:Simba is a 83 year old male admitted with reports of AMS, elevated cardiac enzymes and CHF vs pneumonia P: Simba will be discharged home when medically ready per provider. Simba will resume DME services for home oxygen. He will need a follow up with primary care for medication management and follow up prior to returning to [place]. Spouse Arias to transport him home when medically ready. Anticipate no additional services needed at time of discharge. CM to continue to provide support to patient, family and discharge planning needs.
[2019-01-14] MEDS: Fludrocortisone 0.1 MG TAB PO (12:28)
--- NOTE | 2019-01-14 18:58 | W.PM.PROGNOT ---
Date of Service Date of service: 01/14/19 Time of Service: 18:58 Assessment and Plan Assessment and plan (1) Altered mental status: Status: Acute Assessment and plan: Episodic, currently at baseline. It is not clear if this happens in setting of hypotension/orthostasis/arrhythmia/seizures. Orthostatic. Oxybutynin can also cause seizures and has been d/c'ed. Negative CT Head, Carotid Ultrasound, and MRI of the Brain - ? 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 Previous EEG in 2017 while awake also negative. Current episode mimicked prior experience 2 years ago. Treat orthostatic hypotension - start florinef. (2) Orthostatic hypotension: Status: Acute Assessment and plan: with a symptomatic episode/nearsyncope on 01/12/19. ?Recurrent PE, side effect of oxybutynin. Start florinef. Monitor on tele (3) Acute exacerbation of CHF (congestive heart failure): Status: Acute Assessment and plan: Likely ischemic, EF 30%. Symptoms likely exacerbated by pulmonary hypertension. In addition, I cannot rule out recurrent PE. - Holding off of diuresis at this time. Imdur and jamaica-i d/c'ed. Oxybutynin d/c'ed. - Continue ASA, statin, BB, Ranolazine - Given worsening LVEF will benefit from outpatient stress testing as well. (4) Nuowf-bd-jujoxes kidney injury: Status: Acute Assessment and plan: In setting of acute CHF exacerbation and active diuresis, as well as pulmonary hypertension. Improved. No evidence of urinary retention, even off oxybutynin. Continue to hold jamaica-i and diuretics. 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 I cannot rule out recurrent PE. Continue anticoagulation, supplementation with O2. (6) CAP (community acquired pneumonia): Status: Acute Assessment and plan: Procalcitonin undetectable. Finished a 5 day course of antibiotics. (7) HTN (hypertension): Status: Chronic Assessment and plan: BP's are actually low normal even without the jamaica-i and imdur. Orthostatic. Florinef started. (8) ASCVD (arteriosclerotic cardiovascular disease): Status: Chronic Assessment and plan: S/p CABG in 1997, now with [facility]. Continue ASA, statin, BB, ranexa. - Given drop in EF may benefit from stress once acute illness is over. (9) Elevated troponin: Status: Acute Assessment and plan: Minimal and likely related to demand in the setting of acute CHF exacerbation and poor clearance with JANINA superimposed on CKD. Downtrended with treatment of CHF. (10) DVT prophylaxis: Status: Acute Assessment and plan: On chronic anticoagulation with Coumadin. Monitor daily INR - resume coumadin today. (11) Advance directive discussed with patient: Status: Acute Assessment and plan: Full Code. IF the patient continues to have [id number] despite us addressing his medications and the family still wants to take the patient home to [place], I have introduced the idea of it being on comfort measures. Subjective Subjective Interval history since last seen: Mr Villa states he hadn't had any dizzy episodes today, but he was very weak on his feet. Denies chest pain, shortness of breath, nausea, vomiting. Exam Narrative Exam Narrative: General: very pleasant elderly male, A&Ox3, sitting up comfortably in a chair, looks better than yesterday HEENT: EOMI, MMM Heart: RRR, quiet LISA Lungs: CTAB GI: abdomen is soft, nontender, nondistended Extremities: no e/c/c BLE's Objective Objective Clinical Data: Abnormal lab results 01/14/19 01/14/19 01/14/19 Range/Units 06:48 06:48 06:48 RBC 4.35 L (4.50-6.00) m/cumm Hgb 13.3 L (13.5-17.5) g/dL RDW 14.9 H (11.8-14.1) % Absolute Lymphocytes 0.89 L (1.2-3.4) k/cumm Absolute Monocytes 0.86 H (0.11-0.7) k/cumm PT 23.4 H D (9.3-11.0) sec INR 2.4 H D (0.9-1.1) BUN 30 H (7-18) mg/dL Creatinine 1.55 H (0.70-1.30) mg/dL Glucose 120 H (70-100) mg/dL Calcium 8.3 L (8.5-10.1) mg/dL Vital Signs Temperature 36.6 C 01/14/19 16:02 Temperature Source Tympanic 01/14/19 16:02 Pulse 71 01/14/19 16:02 Pulse Rhythm Regular 01/14/19 15:30 Pulse 99 H 01/07/19 17:01 Respiratory Rate 18 01/14/19 16:02 Respiratory Effort Non-Labored 01/14/19 15:30 Respiratory Depth Normal 01/14/19 15:30 Respiratory Pattern Normal 01/14/19 15:30 Blood Pressure 99/60 L 01/14/19 16:02 Blood Pressure Mean 84 01/07/19 17:01 Blood Pressure Position Sitting 01/07/19 11:04 Pulse Oximetry 100 01/14/19 16:02 Oxygen Delivery Method Nasal Cannula 01/14/19 16:02 Oxygen Flow Rate 2 01/14/19 16:02 Pain Level 0 01/14/19 16:02 Comment 01/12/19 19:24 Intake & Output 01/13/19 01/14/19 01/14/19 23:59 11:59 23:59 Intake Total 500 / 1300 360 / 360 Output Total 400 / 500 420 / 545 125 / 545 Balance 100 / 800 -60 / -185 -125 / -185 Weight 74.3 kg Intake: IV 10 Oral 480 / 1270 350 / 350 Output: Urine 400 / 500 420 / 545 125 / 545 Post Void Residual 0 / 0 Other: Urine Color Dark Kajal Dark Kajal Dark Kajal Urine Appearance Clear Clear Clear Urine Odor Normal Normal Voiding Methods Urinal Urinal Urinal Laboratory Results WBC 7.26 k/cumm (4.4-10.8) 01/14/19 06:48 RBC 4.35 m/cumm (4.50-6.00) L 01/14/19 06:48 Hgb 13.3 g/dL (13.5-17.5) L 01/14/19 06:48 Hct 41.0 % (40.0-50.0) 01/14/19 06:48 MCV 94.3 fL (80-95) 01/14/19 06:48 MCH 30.6 pg (27.0-33.0) 01/14/19 06:48 MCHC 32.4 g/dL (32.0-36.0) 01/14/19 06:48 RDW 14.9 % (11.8-14.1) H 01/14/19 06:48 Plt Count 169 x1000/uL (130-400) 01/14/19 06:48 MPV 10.0 fL (8.0-11.0) 01/14/19 06:48 Immature Gran % 0.1 01/14/19 06:48 Neutrophils % 74.5 01/14/19 06:48 Lymphocytes % 12.3 01/14/19 06:48 Monocytes % 11.8 01/14/19 06:48 Eosinophils % 1.2 01/14/19 06:48 Basophils % 0.1 01/14/19 06:48 Absolute Neutrophils 5.40 k/cumm (1.2-6.7) 01/14/19 06:48 Absolute Lymphocytes 0.89 k/cumm (1.2-3.4) L 01/14/19 06:48 Absolute Monocytes 0.86 k/cumm (0.11-0.7) H 01/14/19 06:48 Absolute Eosinophils 0.09 k/cumm (0.0-0.7) 01/14/19 06:48 Absolute Basophils 0.01 k/cumm (0.0-0.2) 01/14/19 06:48 PT 23.4 sec (9.3-11.0) H D 01/14/19 06:48 INR 2.4 (0.9-1.1) H D 01/14/19 06:48 APTT 29.2 sec (21.0-31.4) 01/07/19 11:30 Sodium 139 mmol/L (136-145) 01/14/19 06:48 Potassium 4.5 mmol/L (3.5-5.1) 01/14/19 06:48 Chloride 105 mmol/L (98-107) 01/14/19 06:48 Carbon Dioxide 26.2 mmol/L (21.0-32.0) 01/14/19 06:48 Anion Gap 7.8 mmol/L (3-11) 01/14/19 06:48 BUN 30 mg/dL (7-18) H 01/14/19 06:48 Creatinine 1.55 mg/dL (0.70-1.30) H 01/14/19 06:48 Estimated GFR/1.73 m2 43.25 (mL/min/1.73m2) 01/14/19 06:48 Glucose 120 mg/dL (70-100) H 01/14/19 06:48 Lactate 1.2 mmol/L (0.6-1.4) 01/08/19 05:35 Calcium 8.3 mg/dL (8.5-10.1) L 01/14/19 06:48 Magnesium 2.4 mg/dL (1.8-2.4) 01/14/19 06:48 Total Bilirubin 0.7 mg/dL (0.2-1.0) 01/07/19 11:30 AST 24 U/L (15-37) 01/07/19 11:30 ALT 27 U/L (16-63) 01/07/19 11:30 Alkaline Phosphatase 46 U/L (46-116) 01/07/19 11:30 Troponin I 0.17 ng/mL (0.00-0.06) H* 01/10/19 06:32 NT-Pro-B Natriuret Pep 2373 pg/mL (-299) H 01/11/19 06:10 Total Protein 7.0 g/dL (6.4-8.2) 01/07/19 11:30 Albumin 3.1 g/dL (3.4-5.0) L 01/07/19 11:30 Procalcitonin < 0.1 ng/mL 01/07/19 14:40 Urine Color Yellow (Yellow) 01/07/19 13:12 Urine Clarity Clear (Clear) 01/07/19 13:12 Urine pH 6.5 (5-8) 01/07/19 13:12 Ur Specific [place] 1.020 (1.005-1.025) 01/07/19 13:12 Urine Protein 30 mg/dL (Negative) H 01/07/19 13:12 Urine Ketones Negative mg/dL (Negative) 01/07/19 13:12 Urine Blood Negative (Negative) 01/07/19 13:12 Urine Nitrite Negative (Negative) 01/07/19 13:12 Urine Bilirubin Negative (Negative) 01/07/19 13:12 Urine Urobilinogen 0.2 EU/dL (Up TO 0.2) 01/07/19 13:12 Ur Leukocyte Esterase Trace (Negative) H 01/07/19 13:12 Urine RBC Negative (0-2) 01/07/19 13:12 Urine WBC 5-10 HPF (0-5) 01/07/19 13:12 Ur Epithelial Cells Negative HPF (Negative) 01/07/19 13:12 Urine Crystals Negative HPF (Negative) 01/07/19 13:12 Urine Bacteria Rare HPF (Negative) 01/07/19 13:12 Urine Casts Negative LPF (Negative) 01/07/19 13:12 Urine Mucus Negative (Negative) 01/07/19 13:12 Ur Culture Indicated? Yes 01/07/19 13:12 Urine Glucose 100 mg/dL (Negative) 01/07/19 13:12
[2019-01-14] MEDS: Normal Saline Flush 10 ML SYR IVP (20:46)
[2019-01-14] MEDS: Atorvastatin 40 MG TAB PO (23:05)
[2019-01-15] VITALS (9 sets, daily range): BP systolic 82–112; BP diastolic 52–67; PULSE 57–102; RESP 16–20; TEMP 35.8–36.7; O2SAT 97–100
[2019-01-15 07:40] LABS: Abs Immature Grans 0.03 k/cumm (0.0-0.09); Absolute Basophil Count 0.01 k/cumm (0.0-0.2); Absolute Eosinophil Count 0.13 k/cumm (0.0-0.7); Absolute Monocyte Count 0.96 k/cumm (0.11-0.7); Absolute Neutrophil Count 5.89 k/cumm (1.2-6.7); Basophils % 0.1; Eosinophils % 1.6; HCT 38.6 % (40.0-50.0); HGB 12.6 g/dL (13.5-17.5); Immature Grans % 0.4; Lymphocytes % 11.4; Mean Corp. HGB Concentration 32.6 g/dL (32.0-36.0); Mean Corpuscular Hemoglobin 30.7 pg (27.0-33.0); Mean Corpuscular Volume 94.1 fL (80-95); Monocytes % 12.1; Neutrophils % 74.4; Platelet Count 166 x1000/uL (130-400); RBC Distribution Width 14.7 % (11.8-14.1); White Blood Cell Count 7.92 k/cumm (4.4-10.8)
[2019-01-15 07:43] LABS: INR 1.8 (0.9-1.1); Prothrombin Time 18.1 sec (9.3-11.0)
[2019-01-15 08:16] LABS: Anion Gap 5.3 mmol/L (3-11); BUN 30 mg/dL (7-18); CO2 27.7 mmol/L (21.0-32.0); CREATININE 1.47 mg/dL (0.70-1.30); Calcium 8.1 mg/dL (8.5-10.1); Chloride 106 mmol/L (98-107); Estimated GFR 45.98 (mL/min/1.73m2); Glucose 103 mg/dL (70-100); Magnesium 2.3 mg/dL (1.8-2.4); Potassium 4.7 mmol/L (3.5-5.1); Sodium 139 mmol/L (136-145)
--- NOTE | 2019-01-15 08:47 | PDOC.CMPRO ---
- If Service Date Differs Date of service: 01/15/19 Time of Service: 08:47 Care Management Progress Note S/O: Simba is sitting up in bed visiting with his spouse. Dayron medications continue to be adjusted to improve orthostatic hypotension and decrease occurrence. No other changes to status today. A:Simba is a 83 year old male admitted with reports of AMS, elevated cardiac enzymes and CHF vs pneumonia, and hypotension P: Simba will be discharged home when medically ready per provider. Simba will resume DME services for home oxygen. He will need a follow up with primary care for medication management and follow up prior to returning to [place]. Spouse Arias to transport him home when medically ready. Anticipate no additional services needed at time of discharge. CM to continue to provide support to patient, family and discharge planning needs.
[2019-01-15] MEDS: Enoxaparin 80 MG/0.8 ML SYR 70 MG SC ×2 (09:05→21:02)
[2019-01-15] MEDS: Multivitamin TAB 1 TAB PO (09:05)
[2019-01-15] MEDS: Cholecalciferol (Vitamin D3) 1,000 UNIT TAB 1000 UNITS PO (09:05)
[2019-01-15] MEDS: Aspirin E.C. 81 MG TABEC PO (09:05)
[2019-01-15] MEDS: Cyanocobalamin 500 MCG TAB PO (09:05)
[2019-01-15] MEDS: guaiFENesin 600 MG TABCR PO ×2 (09:06→21:01)
[2019-01-15] MEDS: Fludrocortisone 0.1 MG TAB PO (09:06)
[2019-01-15] MEDS: Metoprolol CR 25 MG TABCR PO (09:06)
[2019-01-15] MEDS: Omeprazole 20 MG CAPCR PO (09:06)
--- NOTE | 2019-01-15 12:31 | PT.INNT ---
Date of service: 01/15/19 Time of Service: 12:32 PT Notes 01/15/19 Patient refused morning PT session, stating that he would prefer to wait to participate in PT until he hears from the doctor. Will attempt to resume PT services this afternoon.
--- NOTE | 2019-01-15 15:32 | PT.INTREAT ---
Date of service: 01/15/19 Time of Service: 15:32 PT Notes Inpatient Physical Therapy Treatment Note [facility] Date: 01/15/19 PRECAUTIONS: Fall, monitor BP SUBJECTIVE:. States he is feeling a little bit better now but he has been able to have a bowel movement for the first time in 4-5 days, he is agreeable to participating in PT. OBJECTIVE: PAIN: No complaints of pain BED MOBILITY/TRANSFERS Sit-stand: SBA with verbal cueing for safety Stand-sit: SBA with verbal cueing for safety GAIT Assistive Device: 4WW Weight bearing: Full Assist: SBA Distance: 30' x4 Deviation: Seated rest x3 VITALS: Please see nursing notes for orthostatic vital signs ASSESSMENT: Patient tolerated session with complaints of increased B UE fatigue with gait training and 4WW use. Patient would benefit from continued gait and transfer training for improved safety, as well as activity tolerance. PLAN: Continue with PT's POC TREATMENT CODE/TIME: 25 minutes; [id number] x2
--- NOTE | 2019-01-15 17:14 | PGE_ITS ---
Date of Service Date of service: 01/15/19 Time of Service: 17:14 Assessment and Plan Assessment and plan (1) Altered mental status: Status: Resolved Assessment and plan: Episodic, currently at baseline. It is not clear if this happens in setting of hypotension/orthostasis/arrhythmia/seizures. Orthostatic, but no longer symptomatic since florinef was started. Oxybutynin can cause seizures and has been d/c'ed. Negative CT Head, Carotid Ultrasound, and MRI of the Brain - ? 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 Previous EEG in 2017 while awake also negative. Current episode mimicked prior experience 2 years ago. Treat orthostatic hypotension - continue florinef. May have to be wheelchair dependent if orthostatic symptoms resumed. (2) Orthostatic hypotension: Status: Acute Assessment and plan: with a symptomatic episode/nearsyncope on 01/12/19. ?Recurrent PE, side effect of oxybutynin. Continue florinef. No longer symptomatic. Monitor on tele (3) Acute exacerbation of CHF (congestive heart failure): Status: Acute Assessment and plan: Likely ischemic, EF 30%. Symptoms likely exacerbated by pulmonary hypertension. In addition, I cannot rule out recurrent PE. - Holding off of diuresis. Imdur and jamaica-i d/c'ed. Oxybutynin d/c'ed. - Continue ASA, statin, BB, Ranolazine - Given worsening LVEF will benefit from outpatient stress testing as well. (4) Hjxot-ya-mrdreco kidney injury: Status: Acute Assessment and plan: In setting of acute CHF exacerbation and active diuresis, as well as pulmonary hypertension. Improved. No evidence of urinary retention, even off oxybutynin. Continue to hold jamaica-i and diuretics. 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 I cannot rule out recurrent PE. Continue anticoagulation, supplementation with O2. (6) CAP (community acquired pneumonia): Status: Acute Assessment and plan: Procalcitonin undetectable. Finished a 5 day course of antibiotics. (7) HTN (hypertension): Status: Chronic Assessment and plan: BP's are actually low normal even without the jamaica-i and imdur. Orthostatic. Florinef started. (8) ASCVD (arteriosclerotic cardiovascular disease): Status: Chronic Assessment and plan: S/p CABG in 1997, now with ICMO. Continue ASA, statin, BB, ranexa. - Given drop in EF may benefit from stress once acute illness is over. (9) Elevated troponin: Status: Acute Assessment and plan: Minimal and likely related to demand in the setting of acute CHF exacerbation and poor clearance with JANINA superimposed on CKD. Downtrended with treatment of CHF. (10) DVT prophylaxis: Status: Acute Assessment and plan: On chronic anticoagulation with Coumadin. Monitor daily INR - INR subtherapeutic - cover with lovenox and increase coumadin. (11) Advance directive discussed with patient: Status: Acute Assessment and plan: Full Code. IF the patient continues to have orthostasis despite us addressing his medications and the family still wants to take the patient home to [place], I have introduced the idea of it being on comfort measures and needing a whee lchair. Subjective Subjective Interval history since last seen: States he feels better and did not get dizzy today when walking. He remains orthostatic. Denies dizziness, chest pain, shortness of breath, nausea, vomiting. Exam Narrative Exam Narrative: General: very pleasant elderly male, A&Ox3, sitting up in a chair, again looks better HEENT: EOMI, MMM Heart: RRR, quiet LISA Lungs: CTAB GI: abdomen is soft, nontender, nondistended Extremities: no e/c/c BLE's Objective Objective Clinical Data: Abnormal lab results 01/15/19 01/15/19 01/15/19 Range/Units 06:15 06:15 06:15 RBC 4.10 L (4.50-6.00) m/cumm Hgb 12.6 L (13.5-17.5) g/dL Hct 38.6 L (40.0-50.0) % RDW 14.7 H (11.8-14.1) % Absolute Lymphocytes 0.90 L (1.2-3.4) k/cumm Absolute Monocytes 0.96 H (0.11-0.7) k/cumm PT 18.1 H D (9.3-11.0) sec INR 1.8 H D (0.9-1.1) BUN 30 H (7-18) mg/dL Creatinine 1.47 H (0.70-1.30) mg/dL Glucose 103 H (70-100) mg/dL Calcium 8.1 L (8.5-10.1) mg/dL Vital Signs Temperature 36.7 C 01/15/19 16:34 Temperature Source Temporal Artery Scan 01/15/19 16:34 Pulse 78 01/15/19 16:34 Pulse Rhythm Regular 01/15/19 10:42 Pulse 99 H 01/07/19 17:01 Respiratory Rate 18 01/15/19 16:34 Respiratory Effort Non-Labored 01/15/19 10:42 Respiratory Depth Normal 01/15/19 10:42 Respiratory Pattern Normal 01/15/19 10:42 Blood Pressure 103/65 01/15/19 16:34 Blood Pressure Mean 84 01/07/19 17:01 Blood Pressure Position Sitting 01/07/19 11:04 Pulse Oximetry 99 01/15/19 16:34 Oxygen Delivery Method Nasal Cannula 01/15/19 16:34 Oxygen Flow Rate 2 01/15/19 16:34 Pain Level 0 01/15/19 16:34 Comment 01/12/19 19:24 Intake & Output 01/14/19 01/15/19 01/15/19 23:59 11:59 23:59 Intake Total 250 / 610 450 / 800 350 / 800 Output Total 125 / 545 250 / 250 Balance 125 / 65 200 / 550 350 / 550 Weight 73.9 kg Intake: IV Oral 240 / 590 450 / 800 350 / 800 Output: Urine 125 / 545 250 / 250 Post Void Residual 0 / 0 Other: Urine Color Dark Kajal Yellow Yellow Urine Appearance Clear Clear Clear Urine Odor None Stool Size Small Large Stool Characteristics Soft Formed Brown Voiding Methods Urinal Toilet Bedside Commode Laboratory Results WBC 7.92 k/cumm (4.4-10.8) 01/15/19 06:15 RBC 4.10 m/cumm (4.50-6.00) L 01/15/19 06:15 Hgb 12.6 g/dL (13.5-17.5) L 01/15/19 06:15 Hct 38.6 % (40.0-50.0) L 01/15/19 06:15 MCV 94.1 fL (80-95) 01/15/19 06:15 MCH 30.7 pg (27.0-33.0) 01/15/19 06:15 MCHC 32.6 g/dL (32.0-36.0) 01/15/19 06:15 RDW 14.7 % (11.8-14.1) H 01/15/19 06:15 Plt Count 166 x1000/uL (130-400) 01/15/19 06:15 MPV 10.0 fL (8.0-11.0) 01/15/19 06:15 Immature Gran % 0.4 01/15/19 06:15 Neutrophils % 74.4 01/15/19 06:15 Lymphocytes % 11.4 01/15/19 06:15 Monocytes % 12.1 01/15/19 06:15 Eosinophils % 1.6 01/15/19 06:15 Basophils % 0.1 01/15/19 06:15 Absolute Neutrophils 5.89 k/cumm (1.2-6.7) 01/15/19 06:15 Absolute Lymphocytes 0.90 k/cumm (1.2-3.4) L 01/15/19 06:15 Absolute Monocytes 0.96 k/cumm (0.11-0.7) H 01/15/19 06:15 Absolute Eosinophils 0.13 k/cumm (0.0-0.7) 01/15/19 06:15 Absolute Basophils 0.01 k/cumm (0.0-0.2) 01/15/19 06:15 PT 18.1 sec (9.3-11.0) H D 01/15/19 06:15 INR 1.8 (0.9-1.1) H D 01/15/19 06:15 APTT 29.2 sec (21.0-31.4) 01/07/19 11:30 Sodium 139 mmol/L (136-145) 01/15/19 06:15 Potassium 4.7 mmol/L (3.5-5.1) 01/15/19 06:15 Chloride 106 mmol/L (98-107) 01/15/19 06:15 Carbon Dioxide 27.7 mmol/L (21.0-32.0) 01/15/19 06:15 Anion Gap 5.3 mmol/L (3-11) 01/15/19 06:15 BUN 30 mg/dL (7-18) H 01/15/19 06:15 Creatinine 1.47 mg/dL (0.70-1.30) H 01/15/19 06:15 Estimated GFR/1.73 m2 45.98 (mL/min/1.73m2) 01/15/19 06:15 Glucose 103 mg/dL (70-100) H 01/15/19 06:15 Lactate 1.2 mmol/L (0.6-1.4) 01/08/19 05:35 Calcium 8.1 mg/dL (8.5-10.1) L 01/15/19 06:15 Magnesium 2.3 mg/dL (1.8-2.4) 01/15/19 06:15 Total Bilirubin 0.7 mg/dL (0.2-1.0) 01/07/19 11:30 AST 24 U/L (15-37) 01/07/19 11:30 ALT 27 U/L (16-63) 01/07/19 11:30 Alkaline Phosphatase 46 U/L (46-116) 01/07/19 11:30 Troponin I 0.17 ng/mL (0.00-0.06) H* 01/10/19 06:32 NT-Pro-B Natriuret Pep 2373 pg/mL (-299) H 01/11/19 06:10 Total Protein 7.0 g/dL (6.4-8.2) 01/07/19 11:30 Albumin 3.1 g/dL (3.4-5.0) L 01/07/19 11:30 Procalcitonin < 0.1 ng/mL 01/07/19 14:40 Urine Color Yellow (Yellow) 01/07/19 13:12 Urine Clarity Clear (Clear) 01/07/19 13:12 Urine pH 6.5 (5-8) 01/07/19 13:12 Ur Specific [place] 1.020 (1.005-1.025) 01/07/19 13:12 Urine Protein 30 mg/dL (Negative) H 01/07/19 13:12 Urine Ketones Negative mg/dL (Negative) 01/07/19 13:12 Urine Blood Negative (Negative) 01/07/19 13:12 Urine Nitrite Negative (Negative) 01/07/19 13:12 Urine Bilirubin Negative (Negative) 01/07/19 13:12 Urine Urobilinogen 0.2 EU/dL (Up TO 0.2) 01/07/19 13:12 Ur Leukocyte Esterase Trace (Negative) H 01/07/19 13:12 Urine RBC Negative (0-2) 01/07/19 13:12 Urine WBC 5-10 HPF (0-5) 01/07/19 13:12 Ur Epithelial Cells Negative HPF (Negative) 01/07/19 13:12 Urine Crystals Negative HPF (Negative) 01/07/19 13:12 Urine Bacteria Rare HPF (Negative) 01/07/19 13:12 Urine Casts Negative LPF (Negative) 01/07/19 13:12 Urine Mucus Negative (Negative) 01/07/19 13:12 Ur Culture Indicated? Yes 01/07/19 13:12 Urine Glucose 100 mg/dL (Negative) 01/07/19 13:12
[2019-01-15] MEDS: Atorvastatin 40 MG TAB PO (21:02)
[2019-01-16] VITALS (7 sets, daily range): BP systolic 70–128; BP diastolic 41–71; PULSE 58–92; RESP 17–19; TEMP 36.3–36.8; O2SAT 97–100
[2019-01-16 06:57] LABS: Anion Gap 3.7 mmol/L (3-11); BUN 27 mg/dL (7-18); CO2 28.3 mmol/L (21.0-32.0); CREATININE 1.46 mg/dL (0.70-1.30); Chloride 104 mmol/L (98-107); Estimated GFR 46.34 (mL/min/1.73m2); Glucose 105 mg/dL (70-100); Magnesium 2.2 mg/dL (1.8-2.4); Potassium 4.5 mmol/L (3.5-5.1); Sodium 136 mmol/L (136-145)
[2019-01-16 07:00] LABS: INR 1.5 (0.9-1.1); Prothrombin Time 15.3 sec (9.3-11.0)
[2019-01-16] MEDS: Enoxaparin 80 MG/0.8 ML SYR 70 MG SC (08:11)
[2019-01-16] MEDS: Cyanocobalamin 500 MCG TAB PO (08:12)
[2019-01-16] MEDS: Aspirin E.C. 81 MG TABEC PO (08:12)
[2019-01-16] MEDS: Omeprazole 20 MG CAPCR PO (08:12)
[2019-01-16] MEDS: Multivitamin TAB 1 TAB PO (08:12)
[2019-01-16] MEDS: Metoprolol CR 25 MG TABCR PO (08:12)
[2019-01-16] MEDS: Cholecalciferol (Vitamin D3) 1,000 UNIT TAB 1000 UNITS PO (08:12)
[2019-01-16] MEDS: Fludrocortisone 0.1 MG TAB PO (08:12)
[2019-01-16] MEDS: guaiFENesin 600 MG TABCR PO (08:13)
--- NOTE | 2019-01-16 11:20 | PDOC.CMPRO ---
- If Service Date Differs Date of service: 01/16/19 Time of Service: 11:20 Care Management Progress Note S/O: A:Simba is a 83 year old male admitted with reports of AMS, elevated cardiac enzymes and CHF vs pneumonia, and hypotension P: Simba will be discharged home when medically ready per provider. Simba will resume DME services for home oxygen. He will need a follow up with primary care for medication management and follow up prior to returning to [place]. Spouse Arias to transport him home when medically ready. Anticipate no additional services needed at time of discharge. CM to continue to provide support to patient, family and discharge planning needs.
--- NOTE | 2019-01-16 13:36 | DSE_ITS ---
Date of service: 01/16/19 Time of Service: 13:37 DS: Diagnosis Discharge Diagnosis (1) Altered mental status: Status: Resolved (2) Orthostatic hypotension: Status: Acute (3) Acute exacerbation of CHF (congestive heart failure): Status: Acute (4) Gxwdn-kk-cveegas kidney injury: Status: Acute (5) Pulmonary hypertension: Status: Chronic (6) CAP (community acquired pneumonia): Status: Acute (7) HTN (hypertension): Status: Chronic (8) ASCVD (arteriosclerotic cardiovascular disease): Status: Chronic (9) Elevated troponin: Status: Acute Discharge Plan Disposition Patient Disposition: SNF (LEVEL 1) [facility] Condition: Stable Discharge Details Chief Complaint: Dizzy/Sync Clinical Impression: Near syncope, Elevated troponin, Pneumonia, Pleural effusion Reason For Visit: NEAR SYNCOPE, ELEVATED TROPONIN,PNEUMONIA, PLEURA Admit Date/Time: 01/08/19 17:13 Admit Provider: Ha Farris Attending Provider: Ha Farris Primary Care Provider: Maureen Aragon ED Provider: Jossy Marsh Hospital Course Hospital Course: Mr Villa is an 83 year old male with PMHx of chronic severe pulmonary hypertension likely due to chronic thromboembolic disease on anticoagulation with coumadin, chronic hypoxic respiratory failure, CAD s/p CABG, CKD, who was admitted to [facility] on 01/07/19 following an episode of unresponsiveness lasting for about 5 minutes. Evidently, these episodes have been recurrent, the first one having dated to about 2 years ago. The patient has been previously workuped for this with a negative EEG at [facility] [place] [facility]. The patient was evaluated by Dr Plaza of neurology. His CT of the head and MRI of the brain were negative. His echo revealed a decrease in his EF to 30-35%, which is felt to indicate likely underlying ischemia - however, the patient had ruled out for acute coronary syndrome. He was fluid overloaded as evidenced by edema and a presence of a pleural effusion on CXR. He was diuresed - however, his creatinine did increase from 1.44 on admission to 1.83. His medications were reviewed, and jamaica-i and diuretics discontinued. He was noted to be hypotensive - in fact, on 01/12/19, the patient had a near syncopal episode while working with PT - he was also orthostatic. Imdur was discontinued. The patient remained orthostatic. Speaking with the patient's , evidently he was started on oxybutynin about 2 years ago, around the same time as the episodes started. It's not clear what started first - the episodes of unresponsiveness or the oxybutynin. Oxybutynin was also d/c'ed. The patient remained orthostatic, but at least no longer symptomatic. We initiated florinef. The patient is working with PT, but remains weak and could benefit from subacute rehab on discharge. The family's plane is to return to [place] in the middle of January. Upon returning to [place], the patient is recommended to follow up with a PCP for a referral to a neurologist. While he is at subacute rehab in [place], we are attempting to obtain a follow up for him with his registered client associate at [facility] (Dr Rose) for further ischemic workup of his worsening CHF. Finally, due to a suspicion for pneumonia on presentation, the patient finished a 5 day course of antibiotics. On the day of discharge, the patient is medically stable. Discharge summary as well as completion of discharge orders and paperwork and care for the patient took 45 minutes. Home Meds and New Rx's Prescriptions: New albuterol sulfate 2.5 mg /3 mL (0.083 %) Solution For Nebulization 2.5 mg UPD Q4H PRN PRNQty: 0 RF: 0 polyethylene glycol 3350 17 gram Powder In Packet 17 g PO BID PRN PRNQty: 0 RF: 0 warfarin [Coumadin] 3 mg Tablet 3 mg PO QPM Qty: 30 RF: 0 nitroglycerin [Nitrostat] 0.4 mg Tablet, Sublingual 0.4 mg sublingual Q5 MIN PRN X3 PRNQty: 0 RF: 0 docusate sodium [Colace] 100 mg Capsule 100 mg PO BID Qty: 0 RF: 0 omeprazole 20 mg Capsule,Delayed Release(Dr/Ec) 20 mg PO DAILY@0730 Qty: 0 RF: 0 fludrocortisone 0.1 mg Tablet 0.1 mg PO DAILY Qty: 0 RF: 0 enoxaparin 80 mg/0.8 mL Syringe 70 mg subcut Q12H Qty: 0 RF: 0 guaifenesin [Mucinex] 600 mg Tablet Extended Release 12hr 600 mg PO BID PRN PRNQty: 0 RF: 0 Continued atorvastatin [Lipitor] 40 mg tablet 40 mg PO HS Qty: 90 RF: 3 metoprolol succinate 25 mg tablet extended release 24 hr 25 mg PO DAILY Qty: 90 RF: 3 multivitamin [Daily Vitamin] 1 EACH tablet 1 ea PO DAILY RF: 0 aspirin 81 MG tablet,delayed release (DR/EC) 81 mg PO DAILY RF: 0 cyanocobalamin (vitamin B-12) [Vitamin B-12] 500 MCG tablet 500 mcg PO DAILY RF: 0 cholecalciferol (vitamin D3) 1,000 UNIT capsule 1,000 iu PO DAILY RF: 0 CITRACAL + D CAPLET 1 EACH tablet 1 ea PO DAILY RF: 0 Walker 1 u Miscellaneous DAILY Qty: 1 RF: 0 Oxygen EACH as directed RF: 0 ranolazine [Ranexa] 500 mg Tablet Extended Release 12 Hr 500 mg PO QAM RF: 0 ranolazine [Ranexa] 500 mg tablet extended release 12 hr 500 mg PO QHS RF: 0 Discontinued oxybutynin chloride 5 mg tablet 5 mg PO BID Qty: 180 RF: 3 ramipril 10 mg capsule 10 mg PO DAILY Qty: 90 RF: 3 isosorbide mononitrate 120 mg tablet extended release 24 hr 120 mg PO DAILY Qty: 90 RF: 3 warfarin 2.5 mg Tablet See Rx Instructions .ROUTE .COMPLEX RF: 0 warfarin 2.5 mg Tablet See Rx Instructions .ROUTE .COMPLEX RF: 0 Discharge Instructions Instructions: Hypotension (DC) Additional Instructions: Return to the hospital with any fever, bleeding, chest pain, or shortness of breath Stand Alone Forms: Nursing Discharge Form Referrals: Maureen Aragon NP [Primary Care Provider] - 01/24/19 3:15 pm Colin Rose II [ NON-[facility] STAFF PHYSICIAN] - 01/31/19 1:40 pm Activity:: Activity as Tolerated Equipment/Supplies:: Walker Diet:: Low Sodium Discharge Orders Discharge Orders: Discharge Order (Routine); Ordered 01/16/19 Ordered By: Hollie Carnes DS: Summary Status at Discharge Functional status at discharge: uses cane/walker Overall status at discharge: patient is back to baseline Mental Status: mental status grossly normal Speech and Movement: speech and movement normal Mood: congruent mood Affect: normal affect Exam Narrative Exam Narrative: General: very pleasant elderly male, A&Ox3, sitting up in a chair, again looks better HEENT: EOMI, MMM Heart: RRR, quiet LISA Lungs: CTAB GI: abdomen is soft, nontender, nondistended Extremities: no e/c/c BLE's Psych Mental Status: mental status grossly normal Speech and Movement: speech and movement normal Mood: congruent mood Affect: normal affect DS: Data Vitals/I&O Vitals and I&O: Vital Signs Temperature 36.8 C 01/16/19 11:30 Temperature Source Tympanic 01/16/19 11:30 Pulse 78 01/16/19 11:30 Pulse Rhythm Regular 01/16/19 09:11 Pulse 99 H 01/07/19 17:01 Respiratory Rate 17 01/16/19 11:30 Respiratory Effort Non-Labored 01/16/19 09:11 Respiratory Depth Normal 01/16/19 09:11 Respiratory Pattern Normal 01/16/19 09:11 Blood Pressure 106/69 01/16/19 11:30 Blood Pressure Mean 84 01/07/19 17:01 Blood Pressure Position Sitting 01/07/19 11:04 Pulse Oximetry 99 01/16/19 11:30 Oxygen Delivery Method Nasal Cannula 01/16/19 11:30 Oxygen Flow Rate 3 01/16/19 11:30 Pain Level 0 01/16/19 11:30 Comment 01/12/19 19:24 Intake & Output 01/15/19 01/16/19 01/16/19 23:59 11:59 23:59 Intake Total 350 / 800 250 / 250 Output Total 650 / 650 Balance 350 / 550 -400 / -400 Weight 74 kg Intake: Oral 350 / 800 250 / 250 Output: Urine 650 / 650 Other: Urine Color Yellow Light Kajal Urine Appearance Clear Clear Stool Size Large Stool Characteristics Formed Brown Voiding Methods Bedside Commode Urinal Data Completed and Pending Completed studies during hospitalization [Text1]: CXR 01/07/19: Cardiomegaly, question pulmonary edema. I could not exclude a left lower lobe infiltrate. The possibility of a very small pleural effusion is raised. CT head without contrast 01/07/19: No acute intracranial abnormality is demonstrated. Echo: 01/08/19: Dilated cardiomyopathy, new since the study of 2016. Summary: 1. Left ventricle: The cavity size was mildly to moderately dilated. Wall thickness was normal. Systolic function was moderately to severely reduced. The estimated ejection fraction was 30-35%. Diffuse hypokinesis. 2. Aortic valve: There was trivial regurgitation. 3. Ascending aorta: The ascending aorta was mildly dilated. 4. Mitral valve: There was mild regurgitation. 5. Left atrium: The atrium was moderately dilated. 6. Right ventricle: The cavity size was normal. Wall thickness was normal. Systolic function was normal. 7. Pulmonary arteries: Pulmonary systolic pressure was severely increased, in the range of 65mm Hg to 70mm Hg. US carotid 01/08/19: No evidence of significant carotid stenosis. MRI brain 01/08/19: When compared with the previous study of 09/15/2016, there has been no apparent significant interval change. Again noted are the atrophic changes and evidence of small vessel disease. Again noted is a 3 mm focus of decreased signal at the right frontoparietal region, likely representing an old hemorrhage. Labs on day of discharge: Labs from last 24 hours 01/16/19 01/16/19 06:25 06:25 PT 15.3 H INR 1.5 H Sodium 136 Potassium 4.5 Chloride 104 Carbon Dioxide 28.3 Anion Gap 3.7 BUN 27 H Creatinine 1.46 H Estimated GFR/1.73 m2 46.34 Glucose 105 H Calcium 8.0 L Magnesium 2.2 PFSH Medical History Angina pectoris (Chronic 08/06/13) Anticoagulant long-term use (Chronic 09/27/12) indication: recurrent DVT/PE ASCVD (arteriosclerotic cardiovascular disease) (Chronic) inf/lat [place], CABGx2 1997; 09/2011 ACS, cath, 3 vessel disease: medical Rx; an other stent 2018 Deep venous thrombosis (Inactive 12/01/12) DVT post ERAN; recurent post cath 10/2011 IFG (impaired fasting glucose) (Chronic) Impaired fasting glucose (Chronic 08/20/11) Osteoarthritis of hip (Chronic 12/01/12) markos ERAN; hx sacral fx Osteopenia determined by x-ray (Chronic 11/03/17) left forearm T score -1.9 11/01/17 Other and unspecified hyperlipidemia (Chronic 09/27/12) Other pulmonary embolism and infarction (Inactive 11/17/11) with DVT, post cardiac cath, plan 6-12mo anticoagulation Recurrent DVT/PE; 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 Requesting bone scan. Surgical History S/P CABG (coronary artery bypass graft) (Acute) S/P lumbar spine operation (Acute) laser in [place] in 2012 Status post total hip replacement, right (Acute) with revision in 2013 Trigger Finger release (Resolved 10/10/15) RIGHT MIDDLE FINGER/DR. COOMBS Social History Smoking/Tobacco Use Status: Former Tobacco Use Alcohol Intake: former Drug use: Never Substance use type: does not use Household members: spouse Communication Needs: None What is your relationship status?: Panel score (0-1 are the most socially isolated patients): 1 Do you feel safe at home: Yes Do you feel safe in your relationship?: Yes
--- NOTE | 2019-01-16 13:37 | PT.INTREAT ---
Date of service: 01/16/19 Time of Service: 13:38 PT Notes Inpatient Physical Therapy Treatment Note [facility] Date: 01/16/19 PRECAUTIONS: Fall, monitor BP SUBJECTIVE: Simba is agreeable to participating in PT. OBJECTIVE: PAIN: No complaints of pain BED MOBILITY/TRANSFERS Sit-stand: S Stand-sit: S GAIT Assistive Device: 4WW Weight bearing: Full Assist: SBA Distance: 30' x3 + 60' Deviation: Seated rest x3, appropriate pacing, appropriate use of 4WW locks VITALS: BP: 106/69 in seated position, 86/59 in standing position, 135/74 pulse gait training in seated position ASSESSMENT: Patient demonstrates appropriate pacing and use of 4WW locks. Patient would benefit from continued gait and transfer training for improved safety, as well as activity tolerance. PLAN: Continue with PT's POC TREATMENT CODE/TIME: 25 minutes; [id number] x2
--- NOTE | 2019-01-16 17:26 | CMDISCH_ITS ---
- If Service Date Differs Date of service: 01/16/19 Time of Service: 17:26 LACE Index Scoring Tool - Questions: Length of Stay (in days): 7 - 13 Acuity (Admit via E.D.?): Yes Comorbidities: Previous M.I., Congestive Heart Failure E.D. Visits: 1 - Answers: Total Score: 12 Risk of Readmission: High Risk Care Management Discharge Reason for Hospitalization: Near Syncope, Elevated Troponin, Pneumonia, Pleural Effusions Discharge Plan: Simba [facility] prior to returning to [place]. Simba will be at the rehab while he is recovering from prolonged hospitalization. CM reviewed discharge plan and Simba and his spouse are in agreement with the plan. Patient/Family Education Needs: Discharge instructions, CM contacted [facility] and reviewed the instruction. Services Needed at Discharge: Assisted Facility
--- NOTE | 2019-01-17 15:44 | PT.INDS ---
Date of service: 01/16/19 Time of Service: 14:05 PT Notes Inpatient Physical Therapy Discharge Summary Dates: 01/16/2019 Dates of Service: 01/08/2019 through 01/16/2019 Referring Doctor: Day Chou NP PT Orders: PT CONSULT: Eval/Treat Precautions: Fall. Standard. Activity as tolerated. Patient Profile/Admitting Diagnosis: Patient is an 83 year old male admitted with past medical history significant for ASCVD S/P CABG and is on chroninc oxygen supplementation who presented to the ED on 01/07/2019 with chief presentation of dizziness, syncope/unresponsive episode. Patient was diagnosed with neurologic abnormality with suspicion for TIA vs. seizure, CAP, hyperlipidemia, and chroninc kidney disease. 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) inf/lat [place], CABGx2 1997; 09/2011 ACS, cath, 3 vessel disease: medical Rx; another stent 2018 Deep venous thrombosis (Inactive 12/01/12) DVT post ERAN; recurent post cath 10/2011 IFG (impaired fasting glucose) (Chronic) Impaired fasting glucose (Chronic 08/20/11) Osteoarthritis of hip (Chronic 12/01/12) markos ERAN; hx sacral fx Osteopenia determined by x-ray (Chronic 11/03/17) left forearm T score -1.9 11/01/17 Other and unspecified hyperlipidemia (Chronic 09/27/12) Other pulmonary embolism and infarction (Inactive 11/17/11) with DVT, post cardiac cath, plan 6-12mo anticoagulation Recurrent DVT/PE; 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 Requesting bone scan. Surgical History S/P CABG (coronary artery bypass graft) (Acute) S/P lumbar spine operation (Acute) laser in [place] in 2012 Status post total hip replacement, right (Acute) with revision in 2012 Trigger Finger release (Resolved 10/10/15) RIGHT MIDDLE FINGER/DR. COOMBS Social History/Home Situation: Simba currently lives at home with his . He requires 2L/min of O2 during the day and 3L/min at night. They live in a mobile trailer part of the year on [facility] with a ramp to enter, and live in [place] during the winter months. Current Functional Limitations: Patient?s spouse reported at least more than 12 falls in the last twelve months. Equipment Owned/DME: [place] [place] Subjective: Patient continues to report being tired. Both him and his are agreeable to transitioning to a prison facility today. Objective: General Observation: Patient is seen seated in recliner on continuous 2 L of oxygen via nasal cannula, and abbasi catheter. Mental Status: Alert x oriented as to person, place, time, and purpose Pain: 0/10 Vital signs: 91/76 mmHg at the start of PT session. 107/80 6 mmHg at conclusion of treatment. ROM: Right Lower Extremity: Hip flexion WFL. Hip abduction WFL. Knee flexion WFL. Ankle dorsiflexion WFL. Ankle plantarflexion WFL. Left Lower Extremity: Hip flexion WFL. Hip abduction WFL. Knee flexion WFL. Ankle dorsiflexion WFL. Ankle plantarflexion WFL. Strength: Right Lower Extremity: Hip flexors 4/5. Hip abductors 5/5. Knee flexors 4/5. Knee extensors 4/5. Ankle dorsiflexors 5/5. Ankle plantarflexors 5/5. Left Lower Extremity: Hip flexors 4/5. Hip abductors 5/5. Knee flexors 4/5. Knee extensors 4/5. Ankle dorsiflexors 5/5. Ankle plantarflexors 5/5. Bed Mobility/Transfers: Rolling supervision Supine to sit supervision Sit to supine supervision Sit to stand supervision Stand to sit supervision Bed to chair supervision Chair to bed supervision Gait: Patient is able to negotiate level surface ambulation of 30 feet x 3 +60 feet with [employer]NE[employer] MECH[employer]IC as of this morning using FWW with increase ability to manage 4 wheeled walker and with much improved pace. Balance: Static Sitting: Good Dynamic Sitting: Good Static Standing: Fair Dynamic Standing: Fair Assessment: Patient is an 83 year old male admitted with an episode of CKD, CAP, Edema, and O2 dependency. He is accompanied by his who states that they live in a trailer [place] a ramp on [place], and plan to return to [place] on February 07. He is severely deconditioned but seems motivated to get better. His prognosis is fair. Patient continues to present with clinical signs and symptoms consistent with current/admitting diagnoses that have resulted to mobility limitations, gait instability, generalized weakness, and impairment of motor control as demonstrated by the following impairment level findings: 1. Decreased strength to B LE major muscle groups 2. Impaired sitting/standing balance 3. Impaired activity tolerance Impairments are contributing to the following functional limitations: 1. Dependent bed mobility skills 2. Increased dependence with transfers 3. Inability to safely ambulate without assistive device and physical assistance 4. Increase completion time for mobility ADL performance 5. Increased fall risk 6. Inability to negotiate steps alone safely Goals: Goals X1 week 1. Supine-Sit independent NOT MET 2. Sit-Supine independent NOT MET 3. Sit-Stand independent NOT MET 4. Stand-Sit independent NOT MET 5. Bed-Chair independent NOT MET 6. Chair-Bed independent NOT MET 7. Independent gait on level surface with use of least restrictive device for at least 300 feet without report of pain nor dyspnea NOT MET 8. Independent stair negotiation while holding onto bilateral rails for at least 10 steps without report of pain nor dyspnea NOT MET 9. Independent with home exercise program NOT MET 10. Good static and dynamic standing balance/tolerance NOT MET DISCHARGE RECOMMENDATIONS: Patient will benefit from prison facility placement in order to progress mobility level, strength, and balance in preparation for a safe discharge to home. TREATMENT CODE/TIME: 75329 x 29 minutes Thank you very much for this referral. Ale Moralez PT, DPT, CLT [facility]
== END 2019-01-16 15:15 | disposition skilled nursing facility (03) | DRG 312 ==
LOC: ER 16:53 → MS 17:29
PROVIDERS: Internal Medicine; Nurse Practitioner Family; Admitting Provider Internal Medicine; Emergency Provider Physician Assistant; PCP Nurse Practitioner Family; Visit Provider Internal Medicine
DX: I95.1 Orthostatic hypotension (principal); J18.9 Pneumonia, unspecified organism; J90 Pleural effusion, not elsewhere classified; N17.9 Acute kidney failure, unspecified; J96.11 Chronic respiratory failure with hypoxia; I42.0 Dilated cardiomyopathy; R74.8 Abnormal levels of other serum enzymes; R41.82 Altered mental status, unspecified; I50.9 Heart failure, unspecified; N18.9 Chronic kidney disease, unspecified; I27.20 Pulmonary hypertension, unspecified; I10 Essential (primary) hypertension; I25.10 Atherosclerotic heart disease of native coronary artery without angina pectoris; Z79.01 Long term (current) use of anticoagulants; Z95.1 Presence of aortocoronary bypass graft; Z87.891 Personal history of nicotine dependence; Z86.718 Personal history of other venous thrombosis and embolism; Z99.81 Dependence on supplemental oxygen; I44.7 Left bundle-branch block, unspecified; R60.0 Localized edema
CPT/HCPCS: 36415; 80048; 80053; 84145; 87040; 93005; 93306; 94618; 96360; 97110; 97162; 97530; 99223; 99232; 99233; 99239; 99285; 70450; 70551; 71046; 81003; 81015; 83605; 83735; 83880; 84132; 84484; 85025; 85610; 85730; 87070; 87086; 87205; 93010; 93880; 99220; G0378; J0696; J1650; J1940; J3490

== ENCOUNTER 2019-01-26 02:08 | Outpatient (CLI) | payer MEDICARE, BC, SELFPAY ==
[2019-01-26 09:24] LABS: INR 2.3 (0.9-1.1); Prothrombin Time 22.9 sec (9.3-11.0)
[2019-01-26 09:42] LABS: Anion Gap 10.8 mmol/L (3-11); BUN 18 mg/dL (7-18); CO2 27.2 mmol/L (21.0-32.0); Calcium 8.3 mg/dL (8.5-10.1); Chloride 104 mmol/L (98-107); Estimated GFR 48.64 (mL/min/1.73m2); Glucose 136 mg/dL (70-100); Potassium 4.8 mmol/L (3.5-5.1); Sodium 142 mmol/L (136-145)
== END 2019-01-26 02:28 ==
PROVIDERS: PCP Nurse Practitioner Family; Visit Provider Nurse Practitioner Adult Health
DX: I26.99 Other pulmonary embolism without acute cor pulmonale (principal); I82.409 Acute embolism and thrombosis of unspecified deep veins of unspecified lower extremity; I95.1 Orthostatic hypotension; Z79.01 Long term (current) use of anticoagulants
CPT/HCPCS: 36415; 80048; 85610